=== PATIENT | male | born 1985 | race Caucasian/White ===

== ENCOUNTER 2024-01-03 14:29 | Inpatient (IN) | payer BC, SELFPAY ==
[2024-01-03 14:30] VITALS: BP 171/100; PULSE 85; RESP 18; TEMP 35.8; O2SAT 98
[2024-01-03 14:32] VITALS: BMI 32.3
--- NOTE | 2024-01-03 15:04 | CT_ITS ---
We are attempting to reach an attending provider to discuss findings. An addendum with communication details will be sent when the communication is complete. STUDY: CT Abdomen And Pelvis W/ Contrast Injection 01/03/2024 3:56 PM REASON FOR EXAM: Male, 38 years old. ABDOMINAL PAIN abd pain TECHNIQUE: Transaxial images were obtained without oral contrast, and IV 100mL Isovue-370 intravenous contrast. Individualized dose optimization techniques were used for this CT. COMPARISON: None FINDINGS: The visualized lung bases are unremarkable. The visualized portions of the heart are within normal limits. Unremarkable liver. Unremarkable gallbladder and extrahepatic biliary system. Unremarkable spleen. Unremarkable pancreas. Unremarkable bilateral adrenal glands. No acute findings of the right kidney. No acute findings of the left kidney. Unremarkable visualized stomach. Unremarkable small intestine. There is diverticulosis, with thickening of the colon wall, and pericolonic inflammation changes consistent with acute diverticulitis of the descending colon and rectosigmoid colon. The appendix is visualized and appears unremarkable. Between the sigmoid colon and the rectum, there is an abscess measuring 19 mm. There are no acute findings of the abdominal aorta. Unremarkable inferior vena cava. Subcentimeter mesenteric lymph nodes. Urinary bladder wall has wall thickening. This can be related to a partially contractile state. However, a cystitis is not excluded. Urinalysis should be performed in an effort to exclude cystitis. There are prostatic calcifications. There is an umbilical hernia containing fat. There are diffuse degenerative changes of the visualized lumbar spine. CT/Abdomen/Pelvis W IV Cont ONLY IMPRESSION: (NOT LISTED IN ORDER OF SIGNIFICANCE) Cystitis. Mild acute diverticulitis of the descending colon and rectosigmoid colon. Between the sigmoid colon and the rectum, there is an abscess measuring 19 mm. Umbilical hernia containing fat. Other findings as above. Electronically Signed: Cliff Alicea MD at 15:59 EDT ,
--- NOTE | 2024-01-03 15:04 | ED.VIS.GI ---
HPI HPI - GI History of Present Illness Chief Complaint: Abd Pain Informant: patient and spouse/S.O. Abdominal Pain/Flank Pain Onset: Today and Hours Context: Gradual Onset Timing: Continuous Quality: Aching and Cramping Location: Diffuse Current Severity: Moderate Maximum Severity: Moderate Worsened by: Nothing Relieved by: Nothing Nausea/Vomiting/Emesis GI Symptom: Positive for Nausea and Vomiting Onset: Today Severity: Mild Diarrhea/Melena/Hematochezia GI Symptom: Positive for Diarrhea and - (Small blood mixed with stool.); Negative for Melena Onset: Today Stool Quality: Positive for Loose Severity: Mild Associated Symptoms Associated Symptoms: Negative for Dysuria, Frequency, Hematuria or Urgency Narrative Narrative: 38-year-old male history diverticulitis and prior abdominal hernia repair no other abdominal surgeries. He has had several episodes of diverticulitis this summer. Diagnosed and treated at [facility] and was admitted for about 8 days. Did not require surgery. Recently just finished a dose of Cipro and Flagyl about a week ago. Complaining of diffuse abdominal pain with nausea, vomiting and diarrhea today. No dysuria. Prior similar symptoms: Yes Recent Illness/Hospitalization: No PFSH PFSH Home Medications ?Medication ?Instructions ?Recorded ?Last Taken ?Type albuterol sulfate 90 mcg/actuation 2 inh inhalation Q8H 01/03/24 Unknown History aerosol inhaler montelukast 10 mg tablet 10 mg PO DAILY 01/03/24 Unknown History omeprazole 20 mg capsule,delayed 20 mg PO DAILY 01/03/24 Unknown History release Allergy/AdvReac Type Severity Reaction Status Date / Time amoxicillin (From Augmentin) Allergy Intermediate Hives Verified 01/03/24 14:33 clavulanic acid (From Allergy Intermediate Hives Verified 01/03/24 14:33 Augmentin) Social History Smoking Status: Former smoker ROS ROS ED ROS Narrative Abdominal pain with nausea, vomiting and diarrhea. Constitutional Constitutional ED: Reports fever(s); Denies chills ENT ENT ED: Denies ear pain Cardiovascular Cardiovascular: Denies chest pain Respiratory/Chest Respiratory/Chest: Denies cough or dyspnea Gastrointestinal Gastrointestinal: Reports abdominal pain, diarrhea, nausea and vomiting; Denies constipation or melena Genitourinary Genitourinary ED: Denies dysuria or hematuria Musculoskeletal Musculoskeletal: Denies arthralgias or back pain Integumentary Denies abscess or Abrasions Neurologic Neurologic: Denies headache(s) Psychiatric Psychiatric: Denies anxiety or depression Endocrine Endocrinology: Denies polydipsia or polyphagia Hematologic/Lymphatic Hematologic/Lymphatic: Denies easy bleeding or easy bruising Allergic/Immunologic Allergic/Immunologic ED: Denies mouth swelling, tongue swelling or urticaria EXAM Physical Exam Narrative Exam Narrative: There is 8-year-old male sitting upright in bed. Vital signs stable afebrile. H EENT exam mildly dry mucous membranes. Otherwise unremarkable. Neck nontender. Lungs clear. Heart regular rate and rhythm rate about 85 no murmur. Chest wall ribs nontender. Abdomen soft diffusely tender. No distention. No hernia or mass. No obstruction. No peritoneal signs. Soft. Moving all 4 extremities. Nontender no edema he is awake and alert. No focal motor deficits. Const Vital Signs: 01/03/24 14:30 Temperature 96.5 F L Temperature Source Temporal Pulse Rate 85 Respiratory Rate 18 Blood Pressure 171/100 H Blood Pressure Mean 123 Pulse Ox 98 Positive well nourished and well developed; Negative for cachectic, contractures or unkempt General Appearance ED: well developed and NAD; Negative for unkempt, cachectic, contractures or pallor Nutritional Appearance: Negative for cachectic HEENT Reports dry mucous membranes; Denies moist mucous membranes normocephalic and atraumatic; Negative for trauma or tenderness Mouth ED: Yes dry mucous membranes Mouth: dry mucous membranes Eyes PERRL and EOMs intact bilaterally Neck no lymphadenopathy, supple and no JVD Resp normal respiratory effort and clear to auscultation bilaterally Cardio regular rate, regular rhythm, S1 normal heart sound, S2 normal heart sound and no murmurs GI non-distended and no masses; Negative for non-tender Inspection: Negative for abdominal distention Auscultation: normoactive bowel sounds Palpation: soft and tender; Negative for guarding, hernia, mass or rebound tenderness present Back/Spine no CVA tenderness Extremity full ROM General Extremety ED: Negative for edema or tenderness General Extremity: Negative for edema Neuro CN's II-XII intact bilaterally and moves all extremities Sensorium / Orientation: oriented to person, oriented to place and oriented to time; Negative for orientation impaired or confused Motor Exam: strength 5/5 throughout; Negative for general weakness or strength abnormal Psych mental status grossly normal and thought process normal Appearance: Negative for unkempt Attitude: No agitated Mood & Affect: Negative for depressed, anxious or tearful Skin no wounds General Skin Exam: Negative for jaundice or pallor Lesions: no lesions Rashes: no rashes Trauma: Negative for abrasion Nails: Negative for discolored MDM MDM MDM Narrative Medical decision making narrative: 38-year-old male with abdominal pain with nausea, vomiting and diarrhea. May be a viral syndrome. He has had a history of diverticulitis. CAT scan and labs are pending. Treated with morphine for pain Zofran for nausea and IV fluids for dehydration. Repeat exam patient is doing well at 4:17 PM. We discussed his test results. I also spoke to the general surgeon on-call and the radiologist to read his CT. General surgery is okay with admission here with IV antibiotics. And follow-up imaging to see if this resolves. Currently we do not think this will be a area that will need to be either drained or surgically resected unless it does not respond to IV antibiotic therapy. Hospitalist is on page. History & Record Review Discussion w/independent historian: Patient and Family Additional record(s) reviewed:: No prior records Lab Data Attestation: I reviewed the patient's lab results. Lab results narrative: CBC shows no elevated white count of 16.5. H&H 15 and 46. Platelets 337. Electrolytes show gap 8. Normal BUN and creatinine of 10 and 1. Glucose 144. Liver enzymes normal. Lipase normal at 30. CT of the abdomen shows descending colon and rectosigmoid diverticulitis with a small abscess. 18 mm. I discussed this with radiologist. Labs: Laboratory Results - last 24 hr 01/03/24 15:00 WBC 16.5 H RBC 5.09 Hgb 15.6 Hct 46.1 MCV 90.6 MCH 30.6 MCHC 33.8 RDW Std Deviation 46.3 H RDW Coeff of Francis 13.9 Plt Count 337 MPV 9.9 Immature Gran % (Auto) 0.300 Neut % (Auto) 85.0 H Lymph % (Auto) 6.4 L [place] % (Auto) 7.5 Eos % (Auto) 0.4 Baso % (Auto) 0.4 Absolute Neuts (auto) 14.0 H Absolute Lymphs (auto) 1.05 Nucleated RBC % 0 Sodium 140 Potassium 3.7 Chloride 110 H Carbon Dioxide 22.0 Anion Gap 8 BUN 10 Creatinine 1.02 Est GFR (MDRD) Af Amer 105 Est GFR (MDRD) Non-Af 87 BUN/Creatinine Ratio 9.8 L Glucose 144 H Calcium 9.6 Total Bilirubin 1.40 H AST 23 ALT 31 Alkaline Phosphatase 65 Total Protein 7.3 Albumin 3.7 Globulin 3.6 Albumin/Globulin Ratio 1.0 Lipase 30 Radiography Diagnostic Testing: Clinical Impression(s) from Imaging Studies Abdomen/Pelvis CT 01/03/24 15:04 IMPRESSION: (NOT LISTED IN ORDER OF SIGNIFICANCE) Cystitis. Mild acute diverticulitis of the descending colon and rectosigmoid colon. Between the sigmoid colon and the rectum, there is an abscess measuring 19 mm. Umbilical hernia containing fat. Other findings as above. Electronically Signed: Cliff Alicea MD at 15:59 EDT , ADDENDUM: 01/03/24 1609 IMPRESSION: (NOT LISTED IN ORDER OF SIGNIFICANCE) Cystitis. Mild acute diverticulitis of the descending colon and rectosigmoid colon. Between the sigmoid colon and the rectum, there is an abscess measuring 19 mm. Umbilical hernia containing fat. Other findings as above. N.B. : The above Results were Read Back by Cliff Alicea MD to Fili Guthrie MD, and understanding confirmed on 01/03/2024 16:02:31 (ET). Electronically Signed: Cliff Alicea MD at 15:59 EDT , Discharge Plan Triage Chief Complaint: Abd Pain ED Provider: Fili Guthrie Dx/Rx/DC Orders Clinical Impression: Diverticulitis, Intestinal diverticular abscess Prescriptions: No Action omeprazole 20 mg capsule,delayed release(DR/EC) 20 mg PO DAILY montelukast 10 mg tablet 10 mg PO DAILY albuterol sulfate 90 mcg/actuation HFA aerosol inhaler 2 inh inhalation Q8H Primary Care Provider: Shukri Contreras Referrals: [facility] Doctor,Out of [Non-Staff] - Print Language: [place] Disposition Disposition: Acute Care Hospital [facility]
[2024-01-03] MEDS: 0.9% Normal Saline (1000mL) 1,000 ML 999 ML IV (15:10)
[2024-01-03] MEDS: morphine 8 MG/ML Syringe IV (15:11)
[2024-01-03] MEDS: Ondansetron 4 MG/2 ML Vial IV ×2 (15:11→16:34)
[2024-01-03 15:12] LABS: Absolute Lymphocyte Count 1.05 X10^3/uL (0.83-4.51); Basophil# 0.06 X10^3/uL; Basophil% 0.4 % (0-1); Eosinophil# 0.06 X10^3/uL; Eosinophils% 0.4 % (0-5); Hematocrit 46.1 % (40-54); Hemoglobin 15.6 g/dL (13.0-16.5); Lymphocyte # 1.05 X10^3/ul (0.83-4.51); Lymphocyte % 6.4 % (19-41); Mean Corp Hgb Conc 33.8 g/dL (32-36); Mean Corpuscular Hgb 30.6 pg (27.0-32.0); Mean Corpuscular Volume 90.6 fL (80-94); Mean Platelet Vol. 9.9 fl (6.2-12.0); Monocyte# 1.24 X10^3/uL; Monocyte% 7.5 % (0-10); NRBC Flagged by Analyzer 0 % (0-5); Platelet Count 337 K/mm3 (150-450); RBC Distribution Width CV 13.9 % (11.6-14.6); RBC Distribution Width SD 46.3 fl (35.1-43.9); Red Blood Count 5.09 M/mm3 (4.6-6.2); White Blood Count 16.5 K/mm3 (4.4-11.0)
[2024-01-03 15:27] LABS: AST(SGOT) 23 U/L (15-37); Alanine Aminotransfer ALT/SGPT 31 U/L (16-61); Albumin, Serum 3.7 g/dL (3.2-5.0); Alkaline Phosphatase 65 U/L (45-117); Anion Gap 8 (5-15); BUN 10 mg/dL (7-18); BUN/Creat Ratio 9.8 RATIO (10-20); Calcium,Total 9.6 mg/dL (8.5-10.1); Chloride 110 mmol/L (98-107); Creatinine, Serum 1.02 mg/dL (0.70-1.30); EST Glomerular Filtration Rate 87 mL/min (>60); Est Glom Filt Rate - Afr Amer 105 mL/min (>60); Globulin 3.6 g/dL (2.2-4.2); Glucose 144 mg/dL (74-106); Lipase 30 U/L (13-75); Potassium 3.7 mmol/L (3.5-5.1); Protein, Total 7.3 g/dL (6.4-8.2); Sodium Level 140 mmol/L (136-145)
--- NOTE | 2024-01-03 16:20 | ED.RN ---
Attempted to do medication list with patient. pt. states I am so tired of answering this question do none of you talk to each other and update it in the system, I have answered this about 20 times. When this RN asked to confirm pt. omeprazole dose he states I have no idea what dosage I take I get it in the mail and I just take it.
--- NOTE | 2024-01-03 16:25 | HP.PCM.HOS_ITS ---
HPI - General General Date of Admission: 01/03/24 Date of Service: 01/03/24 HPI Narrative REID JAIN, is a 38 M with a PMH as outlined who presents via the ED On 01/03/2024 with a complaint of abdominal pain. He was diagnosed with diverticulitis for the first time in September 2023 and admitted at [facility]. He was says he was told then that he had a small abscess as well but that it would respond to treatment. He was discharged from NSAIDs about 8 days ago he subsequently had another flareup of the diverticulitis and went to an urgent care. He was given a prescription for p.o. ciprofloxacin and metronidazole and he completed the course just about 2 days prior to this admission. This pain however recurred and intensified. He had associated nausea and vomiting and diarrhea so he decided to come into the ED today. He denied any fever or chills shortness of breath or any other symptoms. Review of systems otherwise negative. Vitals in the ED with blood pressure of 171/100, pulse rate of 85, respiratory rate of 18 and temperature of 96.5 Fahrenheit. He was saturating 98% on room air. CBC showed hemoglobin of 15.6, WBC of 16.5 and platelets of 337. Chemistry showed sodium of 140 with potassium of 3.7 and bicarb of 22. Creatinine was 1.02. Liver enzymes are within normal limits. CT abdomen and pelvis showed mild diverticulitis of the descending and rectosigmoid colon and between the sigmoid colon and the rectum, there was an abscess measuring 19 mm. He has been admitted to be managed for acute diverticulitis with diverticular abscess. General surgery will also be consulted. [facility] Home Medications ?Medication ?Instructions ?Recorded ?Last Taken ?Type albuterol sulfate 90 mcg/actuation 2 inh inhalation Q8H 01/03/24 Unknown History aerosol inhaler montelukast 10 mg tablet 10 mg PO DAILY 01/03/24 Unknown History omeprazole 20 mg capsule,delayed 20 mg PO DAILY 01/03/24 Unknown History release Allergy/AdvReac Type Severity Reaction Status Date / Time amoxicillin (From Augmentin) Allergy Intermediate Hives Verified 01/03/24 14:33 clavulanic acid (From Allergy Intermediate Hives Verified 01/03/24 14:33 Augmentin) Social History Smoking Status: Former smoker ROS Review of Systems ROS Unobtainable: Denies due to encephalopathy Constitutional Constitutional: Reports fatigue, malaise and weakness; Denies anorexia, chills or fever(s) Eyes Eyes: Denies change in vision ENT HEENT: Denies dysphagia, headache(s) or sore throat Cardiovascular Cardiovascular: Denies chest pain, dyspnea on exertion, edema, lightheadedness, orthopnea, rapid heart rate or syncope Respiratory/Chest Respiratory/Chest: Denies cough, dyspnea, productive cough, shortness of breath at rest or shortness of breath with exertion Gastrointestinal Gastrointestinal: Reports abdominal pain, diarrhea, nausea and vomiting; Denies constipation, dyspepsia, hematemesis, hematochezia, loose stools or melena Genitourinary Genitourinary: Denies burning urination, difficulty urinating or dysuria Musculoskeletal Musculoskeletal: Denies back pain Neurologic Neurologic: Denies confusion, dizziness, focal weakness, headache(s), numbness, paresthesias, seizure-like activity, seizures or syncope Psychiatric Psychiatric: Denies anxiety or depression Endocrine Endocrinology: Denies change in body appearance Hematologic/Lymphatic Hematologic/Lymphatic: Denies anemia Vital Signs Vital Signs Vital Signs: 01/03/24 14:30 Temperature 96.5 F L Temperature Source Temporal Pulse Rate 85 Respiratory Rate 18 Blood Pressure 171/100 H Blood Pressure Mean 123 Pulse Ox 98 Physical Exam Const alert and oriented x3 Constitutional Narrative: in moderate distress due to abdominal pain General Appearance: cooperative HEENT normocephalic, head/scalp atraumatic and hearing grossly normal bilaterally HEENT Narrative: dry oral mucosa Mouth: oral and palatal mucosa normal Eyes PERRL, EOMs intact bilaterally and conjunctivae normal Neck no lymphadenopathy, supple and no JVD Resp normal respiratory effort, no retractions, no use of accessory muscles and clear to auscultation bilaterally Cardio regular rate, regular rhythm, S1 normal heart sound, S2 normal heart sound and no murmurs GI GI Narrative: mild generalised tenderness, no guarding or rebound tenderness. Extremity normal to inspection, full ROM and no clubbing, cyanosis or edema Neuro oriented x3, CN's II-XII intact bilaterally, moves all extremities and no focal motor deficits Sensorium / Orientation: awake and alert Motor Exam: strength 5/5 throughout Psych affect normal Results Lab / Micro Data 01/03/24 15:00 01/03/24 15:00 Labs: Laboratory Results - last 24 hr 01/03/24 15:00: WBC 16.5 H, RBC 5.09, Hgb 15.6, Hct 46.1, MCV 90.6, MCH 30.6, MCHC 33.8, RDW Std Deviation 46.3 H, RDW Coeff of Francis 13.9, Plt Count 337, MPV 9.9, Immature Gran % (Auto) 0.300, Neut % (Auto) 85.0 H, Lymph % (Auto) 6.4 L, [place] % (Auto) 7.5, Eos % (Auto) 0.4, Baso % (Auto) 0.4, Absolute Neuts (auto) 14.0 H, Absolute Lymphs (auto) 1.05, Nucleated RBC % 0, Sodium 140, Potassium 3.7, Chloride 110 H, Carbon Dioxide 22.0, Anion Gap 8, BUN 10, Creatinine 1.02, Est GFR (MDRD) Af Amer 105, Est GFR (MDRD) Non-Af 87, BUN/Creatinine Ratio 9.8 L , Glucose 144 H, Calcium 9.6, Total Bilirubin 1.40 H, AST 23, ALT 31, Alkaline Phosphatase 65, Total Protein 7.3, Albumin 3.7, Globulin 3.6, Albumin/Globulin Ratio 1.0, Lipase 30 Imaging Radiology Impression Abdomen/Pelvis CT 01/03/24 15:04 IMPRESSION: (NOT LISTED IN ORDER OF SIGNIFICANCE) Cystitis. Mild acute diverticulitis of the descending colon and rectosigmoid colon. Between the sigmoid colon and the rectum, there is an abscess measuring 19 mm. Umbilical hernia containing fat. Other findings as above. Electronically Signed: Cliff Alicea MD at 15:59 EDT , ADDENDUM: 01/03/24 8000 IMPRESSION: (NOT LISTED IN ORDER OF SIGNIFICANCE) Cystitis. Mild acute diverticulitis of the descending colon and rectosigmoid colon. Between the sigmoid colon and the rectum, there is an abscess measuring 19 mm. Umbilical hernia containing fat. Other findings as above. N.B. : The above Results were Read Back by Clfif Alicea MD to Fili Guthrie MD, and understanding confirmed on 01/03/2024 16:02:31 (ET). Electronically Signed: Cliff Alicea MD at 15:59 EDT , Assessment & Plan Assessment/Plan (1) Intestinal diverticular abscess: (2) Diverticulitis: PLAN: Plan #Acute diverticulitis with diverticular abscess * has a history of recurrent diverticulitis, with multiple admissions at [facility] for diverticulitis. Most recent admission was just about a week ago and he just completed a course of p.o. ciprofloxacin and metronidazole. * Comes in again with abdominal pain and CT of the abdomen and pelvis showed mild acute diverticulitis of the descending and rectosigmoid colon and between the sigmoid colon and the rectum there is an abscess measuring 19 mm. * Admit to MedSurg. Keep NPO. * Start IV Zosyn. Consult general surgery for evaluation. If the abscess is not responding to the antibiotics, he may need the abscess drained by IR or general surgery. * Hydrated with IV fluid normal saline at 150 cc/h * P.o. Tylenol, p.o. oxycodone and IV morphine as needed for pain * #Elevated blood pressure: * Systolic blood pressure in the 170s. * Not a known hypertensive. * This may be exacerbated by the pain from the diverticulitis. IV hydralazine as needed. * Blood pressure remains elevated consider starting oral BP meds. * #Chronic alcohol use disorder * Patient states he takes about 10 drinks a week. He states he used to take about 10 drinks a day but has tried to cut down. He states he gets drunk on average twice a week. He denies ever going through withdrawal symptoms. * Will place on alcohol withdrawal protocol with Ativan as a precaution. * ativan prn. * #Nicotine dependence: says he now vapes, doesnt smoke cigarettes anymore. Counseled to quit. DVT prophylaxis: Lovenox Charges/Coding Visit Charges Inpatient E&M: 24143 Init Hosp L3
[2024-01-03 16:30] VITALS: BP 160/80; PULSE 45; RESP 16; O2SAT 94
[2024-01-03] MEDS: morphine 8 MG/ML Syringe 6 MG IV (16:34)
[2024-01-03] MEDS: Piperacil/Tazobactam 4.5 GM in 0.9% Normal Saline (100mL MB+) 100 ML IV (16:35)
[2024-01-03 16:37] VITALS: BP 160/90; PULSE 45; RESP 16; TEMP 36.7; O2SAT 100
[2024-01-03 17:04] VITALS: BMI 32.4
[2024-01-03] MEDS: 0.9% Normal Saline (1000mL) 1,000 ML 150 ML IV (17:35)
[2024-01-03 18:00] VITALS: BP 138/85; PULSE 91; RESP 18; TEMP 36.7; O2SAT 99
[2024-01-03] MEDS: Morphine 2 MG/ML Syringe IV (20:34)
[2024-01-03] MEDS: proCHLORPERazine 10 MG/2 ML Vial IV (20:46)
[2024-01-03 20:58] VITALS: BP 137/90; PULSE 62; RESP 18; TEMP 36.9; O2SAT 96
[2024-01-03] MEDS: Pantoprazole Sodium 40 MG in 0.9% Normal Saline (100mL MB+) 100 ML 330 MG IV (21:09)
[2024-01-04 02:30] VITALS: BP 144/86; PULSE 58; RESP 18; TEMP 36.6; O2SAT 97
[2024-01-04] MEDS: Morphine 4 MG/ML Syringe IV ×3 (03:12→19:39)
[2024-01-04] MEDS: 0.9% Normal Saline (1000mL) 1,000 ML 150 ML IV (03:12)
[2024-01-04 06:07] LABS: Absolute Lymphocyte Count 2.18 X10^3/uL (0.83-4.51); Absolute Neutrophil Count 7.6 X10^3/uL (2.0-7.7); Basophil# 0.05 X10^3/uL; Basophil% 0.5 % (0-1); Eosinophil# 0.17 X10^3/uL; Eosinophils% 1.6 % (0-5); Hematocrit 41.4 % (40-54); Hemoglobin 13.5 g/dL (13.0-16.5); Lymphocyte # 2.18 X10^3/ul (0.83-4.51); Lymphocyte % 20.2 % (19-41); Mean Corp Hgb Conc 32.6 g/dL (32-36); Mean Corpuscular Hgb 30.5 pg (27.0-32.0); Mean Corpuscular Volume 93.5 fL (80-94); Mean Platelet Vol. 11.1 fl (6.2-12.0); Monocyte# 0.81 X10^3/uL; Monocyte% 7.5 % (0-10); NRBC Flagged by Analyzer 0 % (0-5); Neutrophil # 7.57 X10^3/uL (2.7-7.7); Neutrophil % 69.9 % (47-70); Platelet Count 205 K/mm3 (150-450); RBC Distribution Width CV 14.3 % (11.6-14.6); RBC Distribution Width SD 49.6 fl (35.1-43.9); Red Blood Count 4.43 M/mm3 (4.6-6.2); White Blood Count 10.8 K/mm3 (4.4-11.0)
[2024-01-04] MEDS: Ondansetron 4 MG/2 ML Vial IV ×2 (06:09→14:33)
[2024-01-04] MEDS: Morphine 2 MG/ML Syringe IV (06:09)
[2024-01-04 07:01] LABS: AST(SGOT) 16 U/L (15-37); Alanine Aminotransfer ALT/SGPT 24 U/L (16-61); Albumin, Serum 2.9 g/dL (3.2-5.0); Alkaline Phosphatase 51 U/L (45-117); Anion Gap 6 (5-15); BUN 7 mg/dL (7-18); BUN/Creat Ratio 7.7 RATIO (10-20); Calcium,Total 8.8 mg/dL (8.5-10.1); Chloride 108 mmol/L (98-107); Creatinine, Serum 0.92 mg/dL (0.70-1.30); EST Glomerular Filtration Rate 99 mL/min (>60); Est Glom Filt Rate - Afr Amer 120 mL/min (>60); Estimated Creatinine Clearance 135.84 ml/min; Glucose 104 mg/dL (74-106); Potassium 3.7 mmol/L (3.5-5.1); Protein, Total 5.9 g/dL (6.4-8.2); Sodium Level 140 mmol/L (136-145)
--- NOTE | 2024-01-04 07:50 | EX.PCM.CON.S ---
Assessment & Plan Assessment/Plan (1) Intestinal diverticular abscess: (2) Diverticulitis: PLAN: Plan I have been consulted in conjunction with Dr. Fuller. He has independently evaluated this patient. Patient with recurrent symptoms of acute diverticulitis. Patient had a 2 week time period where all symptoms had resolved. Plan to treat with conservative measures i.e. IV antibiotics, IV fluids and bowel rest. Patient may increase to clear liquids, however will hold diet at clears until patient's pain has resolved. May obtain repeat CT scan of the ab/pel with contrast in 3 days to evaluate status of diverticulitis. Patient is aware that if conservative measures fail or if symptoms increase, Dr. Fuller will proceed with surgical intervention. This may entail creating a temporary colostomy. Patient has had the opportunity to ask and have questions answered. Patient would prefer a more conservative approach with an elective surgical procedure at a later date. Patient verbally understands and agrees with the proposed plan. Thank you for allowing us to participate in this patient's care. HPI Consult Data Date of Consult: 01/04/24 HPI Narrative Reason for Consultation: Acute diverticulitis with abscess HPI Narrative: REID JAIN, is a 38 M who presents with a 1 day history of left lower/mid pelvic pain. Patient notes he was hospitalized at [facility] in [place] at the end of September and was discharged on October 28 for acute ruptured diverticulitis with abscess. Patient states he was given IV antibiotics and was treated with a conservative approach during that hospitalization. Patient states he was told to avoid stress and any foods that aggravate his symptoms. He states approximately 2-3 weeks ago he felt similar symptoms starting again. He presented to an outside urgent care where he was paced on oral antibiotics for an acute diverticulitis flare up. Patient states he just completed the antibiotic therapy on Thursday. Patient states yesterday he woke up with what he thought was food poisoning. He noted nausea, vomiting and abdominal pain. Patient states these are the symptoms that brought him to the ED. Patient notes previous left inguinal hernia repair with mesh. He denies any other previous abdominal surgeries. He denies any cardiac history. He is not on any blood thinners. He notes an intentional weight loss of [address] scan of ab/pel demonstrated mild diverticulitis of the descending and rectosigmoid colon. There is a 19 mm abscess between the sigmoid colon and rectum. Admitting WBC was 16.5. PFSH Home Medications ?Medication ?Instructions ?Recorded ?Last Taken ?Type albuterol sulfate 90 mcg/actuation 2 inh inhalation Q8H 01/03/24 Unknown History aerosol inhaler montelukast 10 mg tablet 10 mg PO DAILY 01/03/24 Unknown History omeprazole 20 mg capsule,delayed 20 mg PO DAILY 01/03/24 Unknown History release Allergy/AdvReac Type Severity Reaction Status Date / Time amoxicillin (From Augmentin) Allergy Intermediate Hives Verified 01/03/24 14:33 clavulanic acid (From Allergy Intermediate Hives Verified 01/03/24 14:33 Augmentin) Social History Smoking Status: Former smoker ROS Constitutional Constitutional: Reports systems reviewed and no addt'l complaints, except as documented Eyes Eyes: Reports systems reviewed and no addt'l complaints, except as documented ENT HEENT: Reports systems reviewed and no addt'l complaints, except as documented Cardiovascular Cardiovascular: Reports systems reviewed and no addt'l complaints, except as documented Respiratory/Chest Respiratory/Chest: Reports systems reviewed and no addt'l complaints, except as documented Gastrointestinal Gastrointestinal: Reports systems reviewed and no addt'l complaints, except as documented Genitourinary Genitourinary: Reports systems reviewed and no addt'l complaints, except as documented Musculoskeletal Musculoskeletal: Reports systems reviewed and no addt'l complaints, except as documented Integumentary Integumentary: Reports systems reviewed and no addt'l complaints, except as documented Neurologic Neurologic: Reports systems reviewed and no addt'l complaints, except as documented Psychiatric Psychiatric: Reports systems reviewed and no addt'l complaints, except as documented Endocrine Endocrinology: Reports systems reviewed and no addt'l complaints, except as documented Hematologic/Lymphatic Hematologic/Lymphatic: Reports systems reviewed and no addt'l complaints, except as documented Allergic/Immunologic Allergic/Immunologic: Reports systems reviewed and no addt'l complaints, except as documented Physical Exam Const alert, oriented x3 and no apparent distress HEENT normocephalic and head/scalp atraumatic Eyes PERRL Neck full ROM Lymph Lymphatic: no lymphadenopathy noted Resp normal respiratory effort and clear to auscultation bilaterally Cardio regular rate and regular rhythm GI GI Narrative: Abdomen- tenderness to palpation in the left lower quadrant and pelvic region. Hypoactive bowel sounds no CVA tenderness Back/Spine no CVA tenderness Extremity normal to inspection and no calf tenderness Skin no rashes or lesions noted Neuro no focal motor deficits and no sensory deficits noted Psych mental status grossly normal, thought process normal and cooperative Lab / Micro Data 01/04/24 05:22 01/04/24 05:22 Labs: Laboratory Results - last 24 hr 01/03/24 15:00: WBC 16.5 H, RBC 5.09, Hgb 15.6, Hct 46.1, MCV 90.6, MCH 30.6, MCHC 33.8, RDW Std Deviation 46.3 H, RDW Coeff of Francis 13.9, Plt Count 337, MPV 9.9, Immature Gran % (Auto) 0.300, Neut % (Auto) 85.0 H, Lymph % (Auto) 6.4 L, [place] % (Auto) 7.5, Eos % (Auto) 0.4, Baso % (Auto) 0.4, Absolute Neuts (auto) 14.0 H, Absolute Lymphs (auto) 1.05, Nucleated RBC % 0, Sodium 140, Potassium 3.7, Chloride 110 H, Carbon Dioxide 22.0, Anion Gap 8, BUN 10, Creatinine 1.02, Est GFR (MDRD) Af Amer 105, Est GFR (MDRD) Non-Af 87, BUN/Creatinine Ratio 9.8 L, Glucose 144 H, Calcium 9.6, Total Bilirubin 1.40 H, AST 23, ALT 31, Alkaline Phosphatase 65, Total Protein 7.3, Albumin 3.7, Globulin 3.6, Albumin/Globulin Ratio 1.0, Lipase 30 01/04/24 05:22: WBC 10.8, RBC 4.43 L, Hgb 13.5, Hct 41.4, MCV 93.5, MCH 30.5, MCHC 32.6, RDW Std Deviation 49.6 H, RDW Coeff of Francis 14.3, Plt Count 205, MPV 11.1, Immature Gran % (Auto) 0.300, Neut % (Auto) 69.9, Lymph % (Auto) 20.2, [place] % (Auto) 7.5, Eos % (Auto) 1.6, Baso % (Auto) 0.5, Absolute Neuts (auto) 7.6, Absolute Lymphs (auto) 2.18, Nucleated RBC % 0, Sodium 140, Potassium 3.7, Chloride 108 H, Carbon Dioxide 26.0, Anion Gap 6, BUN 7, Creatinine 0.92, Estim Creat Clear Calc 135.84, Est GFR (MDRD) Af Amer 120, Est GFR (MDRD) Non-Af 99, BUN/Creatinine Ratio 7.7 L, Glucose 104, Calcium 8.8, Total Bilirubin 1.20 H, AST 16, ALT 24, Alkaline Phosphatase 51, Total Protein 5.9 L, Albumin 2.9 L, Globulin 3.0, Albumin/Globulin Ratio 1.0 Imaging Radiology Impression Abdomen/Pelvis CT 01/03/24 15:04 IMPRESSION: (NOT LISTED IN ORDER OF SIGNIFICANCE) Cystitis. Mild acute diverticulitis of the descending colon and rectosigmoid colon. Between the sigmoid colon and the rectum, there is an abscess measuring 19 mm. Umbilical hernia containing fat. Other findings as above. Electronically Signed: Cliff Alicea MD at 15:59 EDT , ADDENDUM: 01/03/24 1609 IMPRESSION: (NOT LISTED IN ORDER OF SIGNIFICANCE) Cystitis. Mild acute diverticulitis of the descending colon and rectosigmoid colon. Between the sigmoid colon and the rectum, there is an abscess measuring 19 mm. Umbilical hernia containing fat. Other findings as above. N.B. : The above Results were Read Back by Cliff Alicea MD to Fili Guthrie MD, and understanding confirmed on 01/03/2024 16:02:31 (ET). Electronically Signed: Cliff Alicea MD at 15:59 EDT , Charges/Coding Visit Charges Inpatient E&M: 77402 Init Hosp L2
[2024-01-04 07:55] VITALS: BP 143/95; PULSE 57; RESP 18; TEMP 37.2; O2SAT 97
--- NOTE | 2024-01-04 08:04 | PN.HOSP_ITS ---
Reason for Visit Reason for Visit: Diagnoses Diverticulitis of intestine, part unspecified, without perforation or abscess without bleeding (01/03/24) Abscess of intestine (01/03/24) Subjective Subjective Still with abdominal pain, but improved from admission. Objective Data Objective Data Vital Signs: Vital Signs Temp Pulse Resp BP Pulse Ox O2 Del Method 37.2 C 57 L 18 143/95 H 97 Room Air 01/04/24 07:55 01/04/24 07:55 01/04/24 07:55 01/04/24 07:55 01/04/24 07:55 01/04/24 07:55 Oxygen Delivery Method Room Air Weight: 105.448 kg Body Mass Index (BMI) 32.4 Intake & Output: Intake and Output for Last 24 Hours 01/02/24 01/03/24 01/04/24 23:59 23:59 23:59 Intake Total 1210 / 1210 1000 / 1000 Balance 1210 / 1210 1000 / 1000 Lab / Micro Data 01/04/24 05:22 01/04/24 05:22 Labs: Laboratory Results - last 24 hr 01/03/24 15:00: WBC 16.5 H, RBC 5.09, Hgb 15.6, Hct 46.1, MCV 90.6, MCH 30.6, MCHC 33.8, RDW Std Deviation 46.3 H, RDW Coeff of Francis 13.9, Plt Count 337, MPV 9.9, Immature Gran % (Auto) 0.300, Neut % (Auto) 85.0 H, Lymph % (Auto) 6.4 L, [place] % (Auto) 7.5, Eos % (Auto) 0.4, Baso % (Auto) 0.4, Absolute Neuts (auto) 14.0 H, Absolute Lymphs (auto) 1.05, Nucleated RBC % 0, Sodium 140, Potassium 3.7, Chloride 110 H, Carbon Dioxide 22.0, Anion Gap 8, BUN 10, Creatinine 1.02, Est GFR (MDRD) Af Amer 105, Est GFR (MDRD) Non-Af 87, BUN/Creatinine Ratio 9.8 L , Glucose 144 H, Calcium 9.6, Total Bilirubin 1.40 H, AST 23, ALT 31, Alkaline Phosphatase 65, Total Protein 7.3, Albumin 3.7, Globulin 3.6, Albumin/Globulin Ratio 1.0, Lipase 30 09/09/24 05:22: WBC 10.8, RBC 4.43 L, Hgb 13.5, Hct 41.4, MCV 93.5, MCH 30.5, MCHC 32.6, RDW Std Deviation 49.6 H, RDW Coeff of Francis 14.3, Plt Count 205, MPV 11.1, Immature Gran % (Auto) 0.300, Neut % (Auto) 69.9, Lymph % (Auto) 20.2, [place] % (Auto) 7.5, Eos % (Auto) 1.6, Baso % (Auto) 0.5, Absolute Neuts (auto) 7.6, Absolute Lymphs (auto) 2.18, Nucleated RBC % 0, Sodium 140, Potassium 3.7, Chloride 108 H, Carbon Dioxide 26.0, Anion Gap 6, BUN 7, Creatinine 0.92, Estim Creat Clear Calc 135.84, Est GFR (MDRD) Af Amer 120, Est GFR (MDRD) Non-Af 99, B UN/Creatinine Ratio 7.7 L, Glucose 104, Calcium 8.8, Total Bilirubin 1.20 H, AST 16, ALT 24, Alkaline Phosphatase 51, Total Protein 5.9 L, Albumin 2.9 L, Globulin 3.0, Albumin/Globulin Ratio 1.0 Radiography Diagnostic Testing: Radiology Impression Abdomen/Pelvis CT 01/03/24 15:04 IMPRESSION: (NOT LISTED IN ORDER OF SIGNIFICANCE) Cystitis. Mild acute diverticulitis of the descending colon and rectosigmoid colon. Between the sigmoid colon and the rectum, there is an abscess measuring 19 mm. Umbilical hernia containing fat. Other findings as above. Electronically Signed: Cliff Alicea MD at 15:59 EDT Reading Location ID and State: [facility] / [place] , Service support , ADDENDUM: 01/03/24 7573 IMPRESSION: (NOT LISTED IN ORDER OF SIGNIFICANCE) Cystitis. Mild acute diverticulitis of the descending colon and rectosigmoid colon. Between the sigmoid colon and the rectum, there is an abscess measuring 19 mm. Umbilical hernia containing fat. Other findings as above. N.B. : The above Results were Read Back by Cliff Alicea MD to Fili Guthrie MD, and understanding confirmed on 01/03/2024 16:02:31 (ET). Electronically Signed: Cliff Alicea MD at 15:59 EDT , Physical Exam Const alert and no apparent distress HEENT head/scalp atraumatic and moist oral mucous membranes Resp normal respiratory effort, no retractions, no use of accessory muscles and clear to auscultation bilaterally Cardio regular rhythm, S1 normal heart sound and S2 normal heart sound GI GI Narrative: LLQ abdominal pain with rebound. Extremity normal to inspection and full ROM Neuro Sensorium / Orientation: awake Assessment & Plan Assessment/Plan (1) Intestinal diverticular abscess: (2) Diverticulitis: PLAN: Plan Acute diverticulitis with diverticular abscess * 1.9cm abscess. * abx with meropenem (received piperacillin/tazobactam in the emergency room but not ordered on the floor on admission). Patient has a noted allergy to amoxicillin where she develops hives. * general surgery consult. Planning on repeat CT in a few days. Patient may eventually require surgical intervention with a surgical procedure at a later date. * Clear liquid diet Chronic alcohol use disorder * Patient states he takes about 10 drinks a week. He states he used to take about 10 drinks a day but has tried to cut down. He states he gets drunk on average twice a week. He denies ever going through withdrawal symptoms. * Start MVI with no evidence of any alcohol withdrawal at this time. VTE prophylaxis: enoxaparin Charges/Coding Visit Charges Inpatient E&M: 26836 Subs Hosp L2
[2024-01-04 09:34] VITALS: O2SAT 97
[2024-01-04] MEDS: Pantoprazole Sodium 40 MG in 0.9% Normal Saline (100mL MB+) 100 ML 330 MG IV ×2 (10:33→22:05)
[2024-01-04] MEDS: oxyCODONE 5 MG Tablet PO ×2 (10:34→22:11)
[2024-01-04] MEDS: proCHLORPERazine 10 MG/2 ML Vial IV ×2 (11:29→19:47)
--- NOTE | 2024-01-04 12:56 | CASEMGMT ---
MARIAH SMITH Assessment Face to Face with patient for initial transition planning/care coordination assessment. MARIAH SMITH introduced self and role at [facility], pt voices understanding. Pt is A&Ox4 and is resting comfortably in bed and is calm. Care providers, pharmacy, and demographics verified. Admitting dx: Diverticulitis LACE Strata: 1 PCP: Shukri Contreras Specialists: Denies Preferred Pharmacy: [facility] Insurance: [employer] Prescription Benefit:Yes LNOK: Reba Ulloa (M) Living Arrangements: Pt lives alone in a mobile home with 2 steps to enter ADLs/IADLs: Ind Transportation: Self. Pt mother [place] drive pt home at [place] DME: Denies all DME uses or needs HHC/SNF: Denies Hx or needs Pt?s goal: Home Plan: Home no needs. 6-Click is 24. Denies the need for HHC, OP Tx, or SNF. Pt states that he feels safe discharging home once medically ready and denies further questions or concerns. Lalo Chang RN, CM
[2024-01-04] MEDS: Meropenem 1 GM in 0.9% Normal Saline (100mL MB+) 100 ML IV ×2 (14:34→22:54)
[2024-01-04 16:22] VITALS: BP 124/70; PULSE 70; RESP 18; TEMP 37.1; O2SAT 98
[2024-01-04] MEDS: 0.9% Saline Lock 10 ML Syringe IV ×2 (19:39→22:06)
[2024-01-04 19:58] VITALS: BP 153/103; PULSE 63; RESP 16; TEMP 36.6; O2SAT 97
[2024-01-04] MEDS: Acetaminophen 325 MG Tablet 650 MG PO (22:11)
[2024-01-05] MEDS: oxyCODONE 5 MG Tablet PO (03:02)
[2024-01-05 03:08] VITALS: BP 139/85; PULSE 54; RESP 16; TEMP 36.6; O2SAT 98
[2024-01-05] MEDS: Acetaminophen 325 MG Tablet 650 MG PO (05:11)
[2024-01-05] MEDS: Meropenem 1 GM in 0.9% Normal Saline (100mL MB+) 100 ML IV ×3 (05:11→22:35)
[2024-01-05 06:53] LABS: Absolute Lymphocyte Count 1.61 X10^3/uL (0.83-4.51); Absolute Neutrophil Count 6.6 X10^3/uL (2.0-7.7); Basophil# 0.06 X10^3/uL; Basophil% 0.7 % (0-1); Eosinophil# 0.17 X10^3/uL; Eosinophils% 1.9 % (0-5); Hematocrit 42.7 % (40-54); Hemoglobin 14.1 g/dL (13.0-16.5); Lymphocyte # 1.61 X10^3/ul (0.83-4.51); Lymphocyte % 17.7 % (19-41); Mean Corpuscular Hgb 30.7 pg (27.0-32.0); Mean Platelet Vol. 9.8 fl (6.2-12.0); Monocyte# 0.69 X10^3/uL; Monocyte% 7.6 % (0-10); NRBC Flagged by Analyzer 0 % (0-5); Neutrophil # 6.56 X10^3/uL (2.7-7.7); Neutrophil % 71.8 % (47-70); Platelet Count 283 K/mm3 (150-450); RBC Distribution Width SD 47.8 fl (35.1-43.9); Red Blood Count 4.59 M/mm3 (4.6-6.2); White Blood Count 9.1 K/mm3 (4.4-11.0)
[2024-01-05 06:55] VITALS: O2SAT 95
[2024-01-05 07:17] LABS: Anion Gap 6 (5-15); BUN 6 mg/dL (7-18); BUN/Creat Ratio 6.6 RATIO (10-20); Chloride 106 mmol/L (98-107); Creatinine, Serum 0.91 mg/dL (0.70-1.30); EST Glomerular Filtration Rate 100 mL/min (>60); Est Glom Filt Rate - Afr Amer 121 mL/min (>60); Estimated Creatinine Clearance 137.36 ml/min; Glucose 91 mg/dL (74-106); Potassium 3.9 mmol/L (3.5-5.1); Sodium Level 139 mmol/L (136-145)
--- NOTE | 2024-01-05 07:34 | PCM.PN.SRG ---
Subjective Subjective Patient evaluated in conjunction with Dr. Fuller. Patient notes feeling improved this morning. He continues to note pain with palpation of his abdomen, however voices that pain is less than yesterday. He is tolerating clears without pain, nausea or vomiting. Objective Data Objective Data Vital Signs: Vital Signs Temp Pulse Resp BP Pulse Ox O2 Del Method 97.9 F 54 L 16 139/85 H 98 Room Air 01/05/24 03:08 01/05/24 03:08 01/05/24 03:08 01/05/24 03:08 01/05/24 03:08 01/05/24 03:08 Oxygen Delivery Method Room Air Weight: 232 lb 9.403 oz Body Mass Index (BMI) 32.4 Intake & Output: Intake and Output for Last 24 Hours 01/03/24 01/04/24 01/05/24 23:59 23:59 23:59 Intake Total 1210 / 1210 3740 / 3740 120 / 120 Balance 1210 / 1210 3740 / 3740 120 / 120 Lab / Micro Data 01/05/24 06:10 01/05/24 06:10 Labs: Laboratory Results - last 24 hr 01/05/24 06:10: WBC 9.1, RBC 4.59 L, Hgb 14.1, Hct 42.7, MCV 93.0, MCH 30.7, MCHC 33.0, RDW Std Deviation 47.8 H, RDW Coeff of Francis 14.0, Plt Count 283, MPV 9.8, Immature Gran % (Auto) 0.300, Neut % (Auto) 71.8 H, Lymph % (Auto) 17.7 L, [place] % (Auto) 7.6, Eos % (Auto) 1.9, Baso % (Auto) 0.7, Absolute Neuts (auto) 6.6, Absolute Lymphs (auto) 1.61, Nucleated RBC % 0, Sodium 139, Potassium 3.9, Chloride 106, Carbon Dioxide 27.0, Anion Gap 6, BUN 6 L, Creatinine 0.91, Estim Creat Clear Calc 137.36, Est GFR (MDRD) Af Amer 121, Est GFR (MDRD) Non-Af 100, BUN/Creatinine Ratio 6.6 L, Glucose 91, Calcium 9.0 Physical Exam GI GI Narrative: Abdomen- soft, tenderness to palpation of the LLQ and pelvic region. Assessment & Plan Assessment/Plan (1) Intestinal diverticular abscess: (2) Diverticulitis: PLAN: Plan I am following this patient in conjunction with Dr. Fuller. He has independently evaluated this patient. Labs reviewed. WBC is within normal range Plan to continue IV Zosyn Hold at clear liquids until pain is resolved Encourage ambulation Plan to obtain repeat CT scan of the ab/pel with contrast on Obtain CBC and BMP for tomorrow morning We will continue to monitor this patient Charges/Coding Visit Charges Inpatient E&M: 52422 Subs Hosp L1
--- NOTE | 2024-01-05 07:48 | PN.HOSP_ITS ---
Reason for Visit Reason for Visit: Diagnoses Diverticulitis of intestine, part unspecified, without perforation or abscess without bleeding (01/03/24) Abscess of intestine (01/03/24) Subjective Subjective Still with abdominal pain, but slightly improved. Objective Data Objective Data Vital Signs: Vital Signs Temp Pulse Resp BP Pulse Ox O2 Del Method 36.6 C 54 L 16 139/85 H 98 Room Air 01/05/24 03:08 01/05/24 03:08 01/05/24 03:08 01/05/24 03:08 01/05/24 03:08 01/05/24 03:08 Oxygen Delivery Method Room Air Weight: 105.5 kg Body Mass Index (BMI) 32.4 Intake & Output: Intake and Output for Last 24 Hours 01/03/24 01/04/24 01/05/24 23:59 23:59 23:59 Intake Total 1210 / 1210 3740 / 3740 120 / 120 Balance 1210 / 1210 3740 / 3740 120 / 120 Lab / Micro Data 01/05/24 06:10 01/05/24 06:10 Labs: Laboratory Results - last 24 hr 01/05/24 06:10: WBC 9.1, RBC 4.59 L, Hgb 14.1, Hct 42.7, MCV 93.0, MCH 30.7, MCHC 33.0, RDW Std Deviation 47.8 H, RDW Coeff of Francis 14.0, Plt Count 283, MPV 9.8, Immature Gran % (Auto) 0.300, Neut % (Auto) 71.8 H, Lymph % (Auto) 17.7 L, [place] % (Auto) 7.6, Eos % (Auto) 1.9, Baso % (Auto) 0.7, Absolute Neuts (auto) 6.6, Absolute Lymphs (auto) 1.61, Nucleated RBC % 0, Sodium 139, Potassium 3.9, Chloride 106, Carbon Dioxide 27.0, Anion Gap 6, BUN 6 L, Creatinine 0.91, Estim Creat Clear Calc 137.36, Est GFR (MDRD) Af Amer 121, Est GFR (MDRD) Non-Af 100, BUN/Creatinine Ratio 6.6 L, Glucose 91, Calcium 9.0 Physical Exam Const alert and no apparent distress HEENT head/scalp atraumatic and moist oral mucous membranes Resp normal respiratory effort, no retractions, no use of accessory muscles and clear to auscultation bilaterally Cardio regular rate, regular rhythm, S1 normal heart sound and S2 normal heart sound GI normal to inspection, nondistended, normoactive bowel sounds and soft to palpation GI Narrative: TTP in LLQ with rebound. Assessment & Plan Assessment/Plan (1) Intestinal diverticular abscess: (2) Diverticulitis: PLAN: Plan Acute diverticulitis with diverticular abscess * 1.9cm abscess. * abx with meropenem (received piperacillin/tazobactam in the emergency room but not ordered on the floor on admission). Patient has a noted allergy to amoxicillin where she develops hives. * general surgery consult. Planning on repeat CT on . Patient may eventually require surgical intervention with a surgical procedure at a later date. * Clear liquid diet Chronic alcohol use disorder * Patient states he takes about 10 drinks a week. He states he used to take about 10 drinks a day but has tried to cut down. He states he gets drunk on average twice a week. He denies ever going through withdrawal symptoms. * No evidence of any alcohol withdrawal at this time. * Continue MVI VTE prophylaxis: enoxaparin Charges/Coding Visit Charges Inpatient E&M: 59900 Subs Hosp L2
[2024-01-05] MEDS: Morphine 4 MG/ML Syringe IV (08:42)
[2024-01-05] MEDS: Ondansetron 4 MG/2 ML Vial IV (08:43)
[2024-01-05] MEDS: 0.9% Saline Lock 10 ML Syringe IV ×2 (08:43→21:41)
[2024-01-05] MEDS: Multivitamins,Therapeutic Tablet 1 TABLET PO (08:47)
[2024-01-05 08:51] VITALS: BP 159/93; PULSE 57; RESP 18; TEMP 36.6; O2SAT 98
[2024-01-05] MEDS: Pantoprazole Sodium 40 MG in 0.9% Normal Saline (100mL MB+) 100 ML 330 MG IV ×2 (10:11→21:42)
[2024-01-05 15:36] VITALS: BP 142/91; PULSE 70; RESP 18; TEMP 37.2; O2SAT 98
[2024-01-05 21:51] VITALS: BP 129/88; PULSE 69; RESP 18; TEMP 36.6; O2SAT 98
[2024-01-06 02:58] VITALS: BP 140/82; PULSE 67; RESP 18; TEMP 36.6; O2SAT 98
[2024-01-06] MEDS: 0.9% Saline Lock 10 ML Syringe IV ×6 (06:02→22:22)
[2024-01-06] MEDS: Meropenem 1 GM in 0.9% Normal Saline (100mL MB+) 100 ML IV ×3 (06:03→22:58)
[2024-01-06 06:57] LABS: Absolute Lymphocyte Count 1.97 X10^3/uL (0.83-4.51); Absolute Neutrophil Count 5.3 X10^3/uL (2.0-7.7); Basophil# 0.09 X10^3/uL; Basophil% 1.1 % (0-1); Eosinophil# 0.22 X10^3/uL; Eosinophils% 2.6 % (0-5); Hematocrit 43.2 % (40-54); Hemoglobin 14.5 g/dL (13.0-16.5); Lymphocyte # 1.97 X10^3/ul (0.83-4.51); Lymphocyte % 23.5 % (19-41); Mean Corp Hgb Conc 33.6 g/dL (32-36); Mean Corpuscular Hgb 30.7 pg (27.0-32.0); Mean Corpuscular Volume 91.5 fL (80-94); Mean Platelet Vol. 9.6 fl (6.2-12.0); Monocyte# 0.75 X10^3/uL; Monocyte% 8.9 % (0-10); NRBC Flagged by Analyzer 0 % (0-5); Neutrophil # 5.32 X10^3/uL (2.7-7.7); Neutrophil % 63.5 % (47-70); Platelet Count 287 K/mm3 (150-450); RBC Distribution Width CV 13.3 % (11.6-14.6); RBC Distribution Width SD 45.8 fl (35.1-43.9); Red Blood Count 4.72 M/mm3 (4.6-6.2); White Blood Count 8.4 K/mm3 (4.4-11.0)
--- NOTE | 2024-01-06 07:46 | PN.SURG_ITS ---
Subjective Subjective Patient is a 38 y/o M I am following for acute diverticulitis with perforation and abscess. Patient is progressing very well. He is currently tolerating a full liquid diet. He denies any abdominal pain. He denies any nausea, vomiting, fever. Objective Data Objective Data Vital Signs: Vital Signs Temp Pulse Resp BP Pulse Ox O2 Del Method 97.8 F 67 18 140/82 H 98 Room Air 01/06/24 02:58 01/06/24 02:58 01/06/24 02:58 01/06/24 02:58 01/06/24 02:58 01/06/24 02:58 Oxygen Delivery Method Room Air Weight: 232 lb 9.403 oz Body Mass Index (BMI) 32.4 Intake & Output: Intake and Output for Last 24 Hours 01/04/24 01/05/24 01/06/24 23:59 23:59 23:59 Intake Total 3740 / 3740 2130 / 2130 120 / 120 Balance 3740 / 3740 2130 / 2130 120 / 120 Lab / Micro Data 01/06/24 06:08 01/05/24 06:10 Labs: Laboratory Results - last 24 hr 01/06/24 06:08: WBC 8.4, RBC 4.72, Hgb 14.5, Hct 43.2, MCV 91.5, MCH 30.7, MCHC 33.6, RDW Std Deviation 45.8 H, RDW Coeff of Francis 13.3, Plt Count 287, MPV 9.6, Immature Gran % (Auto) 0.400, Neut % (Auto) 63.5, Lymph % (Auto) 23.5, [place] % (Auto) 8.9, Eos % (Auto) 2.6, Baso % (Auto) 1.1 H, Absolute Neuts (auto) 5.3, Absolute Lymphs (auto) 1.97, Nucleated RBC % 0 Physical Exam Const alert, oriented x3 and no apparent distress GI GI Narrative: Abdomen- soft, non-distended, non-tender to palpation. Hypoactive bowel sounds. Assessment & Plan Assessment/Plan (1) Intestinal diverticular abscess: (2) Diverticulitis: PLAN: Plan I am following this patient in conjunction with Dr. Calvo in Dr. Fuller's absence. Labs reviewed Continue IV antibiotics and fluids Plan for CT scan of ab/pel tomorrow morning Continue ambulation We will continue to monitor this patient Charges/Coding Visit Charges Inpatient E&M: 14359 Subs Hosp L1
[2024-01-06 08:10] VITALS: BP 140/93; PULSE 64; RESP 14; TEMP 36.6; O2SAT 99
[2024-01-06] MEDS: Multivitamins,Therapeutic Tablet 1 TABLET PO (08:21)
[2024-01-06 08:30] LABS: Anion Gap 6 (5-15); BUN 6 mg/dL (7-18); BUN/Creat Ratio 7.9 RATIO (10-20); Calcium,Total 9.2 mg/dL (8.5-10.1); Chloride 108 mmol/L (98-107); Creatinine, Serum 0.76 mg/dL (0.70-1.30); EST Glomerular Filtration Rate 122 mL/min (>60); Est Glom Filt Rate - Afr Amer 147 mL/min (>60); Estimated Creatinine Clearance 164.48 ml/min; Glucose 101 mg/dL (74-106); Potassium 3.8 mmol/L (3.5-5.1); Sodium Level 138 mmol/L (136-145)
--- NOTE | 2024-01-06 08:30 | PN.HOSP_ITS ---
Reason for Visit Reason for Visit: Diagnoses Diverticulitis of intestine, part unspecified, without perforation or abscess without bleeding (01/03/24) Abscess of intestine (01/03/24) Subjective Subjective Abdomen feeling better. Tolerating full liquids. Objective Data Objective Data Vital Signs: Vital Signs Temp Pulse Resp BP Pulse Ox O2 Del Method 36.6 C 64 14 140/93 H 99 Room Air 01/06/24 08:10 01/06/24 08:10 01/06/24 08:10 01/06/24 08:10 01/06/24 08:10 01/06/24 08:15 Oxygen Delivery Method Room Air Weight: 105.5 kg Body Mass Index (BMI) 32.4 Intake & Output: Intake and Output for Last 24 Hours 01/04/24 01/05/24 01/06/24 23:59 23:59 23:59 Intake Total 3740 / 3740 2130 / 2130 120 / 120 Balance 3740 / 3740 2130 / 2130 120 / 120 Lab / Micro Data 01/06/24 06:08 01/06/24 06:08 Labs: Laboratory Results - last 24 hr 01/06/24 06:08: WBC 8.4, RBC 4.72, Hgb 14.5, Hct 43.2, MCV 91.5, MCH 30.7, MCHC 33.6, RDW Std Deviation 45.8 H, RDW Coeff of Francis 13.3, Plt Count 287, MPV 9.6, Immature Gran % (Auto) 0.400, Neut % (Auto) 63.5, Lymph % (Auto) 23.5, [place] % (Auto) 8.9, Eos % (Auto) 2.6, Baso % (Auto) 1.1 H, Absolute Neuts (auto) 5.3, Absolute Lymphs (auto) 1.97, Nucleated RBC % 0, Sodium 138, Potassium 3.8, C hloride 108 H, Carbon Dioxide 24.0, Anion Gap 6, BUN 6 L, Creatinine 0.76, Estim Creat Clear Calc 164.48, Est GFR (MDRD) Af Amer 147, Est GFR (MDRD) Non-Af 122, BUN/Creatinine Ratio 7.9 L, Glucose 101, Calcium 9.2 Physical Exam Const alert and no apparent distress HEENT head/scalp atraumatic and moist oral mucous membranes Resp normal respiratory effort and no retractions GI normal to inspection, nondistended, normoactive bowel sounds, soft to palpation, non-tender and non-distended GI Narrative: No rebound. Assessment & Plan Assessment/Plan (1) Intestinal diverticular abscess: (2) Diverticulitis: PLAN: Plan Acute diverticulitis with diverticular abscess * 1.9cm abscess. * abx with meropenem (received piperacillin/tazobactam in the emergency room but not ordered on the floor on admission). Patient has a noted allergy to amoxicillin where she develops hives. * general surgery consult. Planning on repeat CT on . Patient may eventually require surgical intervention with a surgical procedure at a later date. * Clear liquid diet Chronic alcohol use disorder * Patient states he takes about 10 drinks a week. He states he used to take about 10 drinks a day but has tried to cut down. He states he gets drunk on average twice a week. He denies ever going through withdrawal symptoms. * No evidence of any alcohol withdrawal at this time. * Continue MVI VTE prophylaxis: enoxaparin Charges/Coding Visit Charges Inpatient E&M: 27414 Subs Hosp L2
[2024-01-06] MEDS: Pantoprazole Sodium 40 MG in 0.9% Normal Saline (100mL MB+) 100 ML 330 MG IV ×2 (10:08→22:22)
[2024-01-06 10:10] VITALS: O2SAT 98
[2024-01-06 16:15] VITALS: BP 133/89; PULSE 77; RESP 14; TEMP 36.7; O2SAT 97
[2024-01-06 20:47] VITALS: BP 128/85; PULSE 71; RESP 16; TEMP 37; O2SAT 98
[2024-01-07 02:54] VITALS: BP 125/85; PULSE 60; RESP 16; TEMP 36.5; O2SAT 97
[2024-01-07] MEDS: Meropenem 1 GM in 0.9% Normal Saline (100mL MB+) 100 ML IV (06:41)
--- NOTE | 2024-01-07 07:00 | CT_ITS ---
STUDY: CT ABDOMEN AND PELVIS WITH CONTRAST REASON FOR EXAM: Male, 38 years old. Acute diverticulitis with perforation and abscess RADIATION DOSAGE (If Supplied By Facility): CTDIvol = ( 18.41 ) mGy, DLP = ( 1290.47 ) mGycm TECHNIQUE: Transaxial images were obtained from the dome of the diaphragm to the symphysis pubis with oral contrast. Oral and amp; IV Gastrografin and amp; 100mL Isovue-370 was administered. Sagittal and coronal images were reconstructed. Individualized dose optimization techniques were used for this CT. COMPARISON: Comparison is made with prior study dated January 03, 2024. FINDINGS: The visualized lung bases are unremarkable. The visualized portions of the heart are within normal limits. Normal liver. Normal gallbladder and extrahepatic biliary system. Normal spleen. Normal pancreas. Normal bilateral adrenal glands. Normal right kidney. Normal left kidney. Normal visualized stomach. Normal small intestine. Diffuse sigmoid diverticulosis with thickening of the sigmoid colon. Mild residual inflammatory changes are seen in the sigmoid colon and rectum. There has been improvement as compared to prior study. Interval resolution of the tiny fluid collection between the sigmoid colon and rectum. The appendix is visualized and appears normal. Normal abdominal aorta. Normal inferior vena cava. Normal retroperitoneum. Normal urinary bladder. Normal abdominal wall. Normal osseous structures. CT/Abdomen/Pelvis WITH Contrast IMPRESSION: Persistent inflammatory changes in the rectosigmoid colon as described although there has been improvement. Electronically Signed: Rocco Hernandez MD at 8:18 EDT ,
[2024-01-07 07:24] LABS: Absolute Lymphocyte Count 1.68 X10^3/uL (0.83-4.51); Absolute Neutrophil Count 6.6 X10^3/uL (2.0-7.7); Basophil# 0.07 X10^3/uL; Basophil% 0.7 % (0-1); Eosinophil# 0.23 X10^3/uL; Eosinophils% 2.5 % (0-5); Hematocrit 44.9 % (40-54); Hemoglobin 15.1 g/dL (13.0-16.5); Lymphocyte # 1.68 X10^3/ul (0.83-4.51); Mean Corp Hgb Conc 33.6 g/dL (32-36); Mean Corpuscular Hgb 30.6 pg (27.0-32.0); Mean Corpuscular Volume 91.1 fL (80-94); Monocyte# 0.73 X10^3/uL; Monocyte% 7.8 % (0-10); NRBC Flagged by Analyzer 0 % (0-5); Neutrophil % 70.6 % (47-70); Platelet Count 299 K/mm3 (150-450); RBC Distribution Width CV 13.5 % (11.6-14.6); RBC Distribution Width SD 45.6 fl (35.1-43.9); Red Blood Count 4.93 M/mm3 (4.6-6.2); White Blood Count 9.4 K/mm3 (4.4-11.0)
--- NOTE | 2024-01-07 07:44 | PN.HOSP_ITS ---
Reason for Visit Reason for Visit: Diagnoses Diverticulitis of intestine, part unspecified, without perforation or abscess without bleeding (01/03/24) Abscess of intestine (01/03/24) Subjective Subjective Feeling better. No abdominal pain. Tolerated transitional diet. Objective Data Objective Data Vital Signs: Vital Signs Temp Pulse Resp BP Pulse Ox O2 Del Method 36.5 C L 60 16 125/85 H 97 Room Air 01/07/24 02:54 01/07/24 02:54 01/07/24 02:54 01/07/24 02:54 01/07/24 02:54 01/07/24 02:54 Oxygen Delivery Method Room Air Weight: 105.5 kg Body Mass Index (BMI) 32.4 Intake & Output: Intake and Output for Last 24 Hours 01/05/24 01/06/24 01/07/24 23:59 23:59 23:59 Intake Total 2130 / 2130 580 / 580 120 / 120 Balance 2130 / 2130 580 / 580 120 / 120 Lab / Micro Data 01/07/24 06:08 01/07/24 06:08 Labs: Laboratory Results - last 24 hr 01/06/24 06:08: Sodium 138, Potassium 3.8, Chloride 108 H, Carbon Dioxide 24.0, Anion Gap 6, BUN 6 L, Creatinine 0.76, Estim Creat Clear Calc 164.48, Est GFR (MDRD) Af Amer 147, Est GFR (MDRD) Non-Af 122, BUN/Creatinine Ratio 7.9 L, Glucose 101, Calcium 9.2 01/07/24 06:08: WBC 9.4, RBC 4.93, Hgb 15.1, Hct 44.9, MCV 91.1, MCH 30.6, MCHC 33.6, RDW Std Deviation 45.6 H, RDW Coeff of Francis 13.5, Plt Count 299, MPV 10.0, Immature Gran % (Auto) 0.400, Neut % (Auto) 70.6 H, Lymph % (Auto) 18.0 L, Bell % (Auto) 7.8, Eos % (Auto) 2.5, Baso % (Auto) 0.7, Absolute Neuts (auto) 6.6, Absolute Lymphs (auto) 1.68, Nucleated RBC % 0 Physical Exam Const alert and no apparent distress HEENT head/scalp atraumatic and moist oral mucous membranes GI normal to inspection, nondistended, normoactive bowel sounds, non-tender and non-distended Assessment & Plan Assessment/Plan (1) Intestinal diverticular abscess: (2) Diverticulitis: PLAN: Plan Acute diverticulitis with diverticular abscess * 1.9cm abscess. Subsequent CT showed resolution of the abscess. * abx with meropenem (received piperacillin/tazobactam in the emergency room but not ordered on the floor on admission). Patient has a noted allergy to amoxicillin where she develops hives. * general surgery consult. Planning on repeat CT on . Patient may eventually require surgical intervention with a surgical procedure at a later date. * Will discharge with levofloxacin and Flagyl to complete a 10-day course of antibiotics. Patient will follow-up with general surgery. Chronic alcohol use disorder * Patient states he takes about 10 drinks a week. He states he used to take about 10 drinks a day but has tried to cut down. He states he gets drunk on average twice a week. He denies ever going through withdrawal symptoms. * No evidence of any alcohol withdrawal at this time. * Continue MVI VTE prophylaxis: enoxaparin FMLA forms filled out
[2024-01-07 07:51] LABS: Anion Gap 6 (5-15); BUN 6 mg/dL (7-18); BUN/Creat Ratio 7.6 RATIO (10-20); Calcium,Total 9.5 mg/dL (8.5-10.1); Chloride 106 mmol/L (98-107); Creatinine, Serum 0.79 mg/dL (0.70-1.30); EST Glomerular Filtration Rate 118 mL/min (>60); Est Glom Filt Rate - Afr Amer 142 mL/min (>60); Estimated Creatinine Clearance 158.23 ml/min; Glucose 99 mg/dL (74-106); Potassium 3.7 mmol/L (3.5-5.1); Sodium Level 138 mmol/L (136-145)
[2024-01-07 08:12] VITALS: BP 138/83; PULSE 66; RESP 18; TEMP 36.6; O2SAT 99
[2024-01-07] MEDS: Multivitamins,Therapeutic Tablet 1 TABLET PO (08:15)
[2024-01-07 08:38] VITALS: O2SAT 98
--- NOTE | 2024-01-07 09:27 | PN.SURG_ITS ---
Subjective Subjective Patient is evaluated sitting comfortably in the chair. He notes some nausea following drinking of contrast for CT. He also notes some diarrhea as well. He denies nausea, vomiting with full liquid diet. He denies abdominal pain. Objective Data Objective Data Vital Signs: Vital Signs Temp Pulse Resp BP Pulse Ox O2 Del Method 97.9 F 66 18 138/83 H 98 Room Air 01/07/24 08:12 01/07/24 08:12 01/07/24 08:12 01/07/24 08:12 01/07/24 08:38 01/07/24 08:38 Oxygen Delivery Method Room Air Weight: 232 lb 9.403 oz Body Mass Index (BMI) 32.4 Intake & Output: Intake and Output for Last 24 Hours 01/05/24 01/06/24 01/07/24 23:59 23:59 23:59 Intake Total 2130 / 2130 580 / 580 120 / 120 Balance 2130 / 2130 580 / 580 120 / 120 Lab / Micro Data 01/07/24 06:08 01/07/24 06:08 Labs: Laboratory Results - last 24 hr 01/07/24 06:08: WBC 9.4, RBC 4.93, Hgb 15.1, Hct 44.9, MCV 91.1, MCH 30.6, MCHC 33.6, RDW Std Deviation 45.6 H, RDW Coeff of Francis 13.5, Plt Count 299, MPV 10.0, Immature Gran % (Auto) 0.400, Neut % (Auto) 70.6 H, Lymph % (Auto) 18.0 L, Schley % (Auto) 7.8, Eos % (Auto) 2.5, Baso % (Auto) 0.7, Absolute Neuts (auto) 6.6, Absolute Lymphs (auto) 1.68, Nucleated RBC % 0, Sodium 138, Potassium 3.7, Chloride 106, Carbon Dioxide 26.0, Anion Gap 6, BUN 6 L, Creatinine 0.79, Estim Creat Clear Calc 158.23, Est GFR (MDRD) Af Amer 142, Est GFR (MDRD) Non-Af 118, BUN/Creatinine Ratio 7.6 L, Glucose 99, Calcium 9.5 Radiography Diagnostic Testing: Radiology Impression Abdomen/Pelvis CT 01/07/24 07:00 IMPRESSION: Persistent inflammatory changes in the rectosigmoid colon as described although there has been improvement. Electronically Signed: Rocco Hernandez MD at 8:18 EDT , Physical Exam GI GI Narrative: Abdomen- soft, nontender. Assessment & Plan Assessment/Plan (1) Intestinal diverticular abscess: (2) Diverticulitis: PLAN: Plan I am following this patient in conjunction with Dr. Fuller. He will independently evaluated this patient. Plan for CT scan this morning. If abscess is decreased or resolved: will plan for low fiber diet, and discharge to home on continued antibiotic treatment with outpatient follow-up If CT scan demonstrates no change in abscess or increase in size, then will discuss colectomy with the patient during this admission Keep NPO until Dr. Fuller discusses CT scan with the patient We will continue to monitor this patient Discharge as early as today pending CT and diet status Charges/Coding Visit Charges Inpatient E&M: 15892 Subs Hosp L1
[2024-01-07] MEDS: Pantoprazole Sodium 40 MG in 0.9% Normal Saline (100mL MB+) 100 ML 330 MG IV (10:33)
--- NOTE | 2024-01-07 10:38 | PCM.DC.SUM ---
Providers Date of Admission: 01/03/24 Primary Care Physician: Dr. Shukri Contreras MD Consultations 01/03/24 20:14 Consult: General Surgery Routine Consulting Provider: Alejo Fuller Reason for Consult: acute diverticulitis with diverticular abscess EMERGENT Consult: No MD Notified: Yes Date Notified: 01/03/24 Time Notified: 20:14 Method of Notification: Text Reason For Visit: ACUTE DIVERTICULITIS WITH DIVERTICULITIS ABSCESS Diagnosis Discharge Diagnosis (1) Intestinal diverticular abscess: Status: Acute Code(s): K63.0 - Abscess of intestine (2) Diverticulitis: Status: Acute Code(s): K57.92 - Diverticulitis of intestine, part unspecified, without perforation or abscess without bleeding Plan Acute diverticulitis with diverticular abscess 1.9cm abscess. Subsequent CT showed resolution of the abscess. abx with meropenem (received piperacillin/tazobactam in the emergency room but not ordered on the floor on admission). Patient has a noted allergy to amoxicillin where she develops hives. general surgery consult. Planning on repeat CT on . Patient may eventually require surgical intervention with a surgical procedure at a later date. Will discharge with levofloxacin and Flagyl to complete a 10-day course of antibiotics. Patient will follow-up with general surgery. Chronic alcohol use disorder Patient states he takes about 10 drinks a week. He states he used to take about 10 drinks a day but has tried to cut down. He states he gets drunk on average twice a week. He denies ever going through withdrawal symptoms. No evidence of any alcohol withdrawal at this time. Continue MVI VTE prophylaxis: enoxaparin FMLA forms filled out Medications at Discharge Home Medications albuterol sulfate 90 mcg/actuation aerosol inhaler 2 inh inhalation Q8H 01/03/24 montelukast 10 mg tablet 10 mg PO DAILY 01/03/24 omeprazole 20 mg capsule,delayed release 20 mg PO DAILY 01/03/24 Hospital Course Operations None Procedures None Summary of Care Provided Minutes Spent on Discharge: 32 Weight / BMI Weight Weight: 105.5 kg Body Mass Index (BMI) 32.4 ABG / Lab / Microbiology Data 01/07/24 06:08 01/07/24 06:08 Laboratory: Laboratory Results - last 24 hr 01/07/24 06:08: WBC 9.4, RBC 4.93, Hgb 15.1, Hct 44.9, MCV 91.1, MCH 30.6, MCHC 33.6, RDW Std Deviation 45.6 H, RDW Coeff of Francis 13.5, Plt Count 299, MPV 10.0, Immature Gran % (Auto) 0.400, Neut % (Auto) 70.6 H, Lymph % (Auto) 18.0 L, [place] % (Auto) 7.8, Eos % (Auto) 2.5, Baso % (Auto) 0.7, Absolute Neuts (auto) 6.6, Absolute Lymphs (auto) 1.68, Nucleated RBC % 0, Sodium 138, Potassium 3.7, Chloride 106, Carbon Dioxide 26.0, Anion Gap 6, BUN 6 L, Creatinine 0.79, Estim Creat Clear Calc 158.23, Est GFR (MDRD) Af Amer 142, Est GFR (MDRD) Non-Af 118, BUN/Creatinine Ratio 7.6 L, Glucose 99, Calcium 9.5 Radiography Diagnostic Testing: Radiology Impression Abdomen/Pelvis CT 01/07/24 07:00 IMPRESSION: Persistent inflammatory changes in the rectosigmoid colon as described although there has been improvement. Electronically Signed: Rocco Hernandez MD at 8:18 EDT , D/C Instructions Discharge Diet: - (bland diet, advance slowly as possible. ) Meaningful Use Info Meaningful Use Meaningful Use Diagnoses (Choose all that apply): None applicable Ischemic Stroke Statin Dosing Therapy Reference: STATIN DOSE THERAPY REFERENCE: * Patients > 75 years receive moderate or high dose statin therapy. * Patients 75 years or YOUNGER should receive HIGH intensity statin dose unless contraindicated. You will be required to document reason for non-treatment if statin daily dose does not meet guidelines. HIGH DOSE STATIN THERAPY DAILY Atorvastatin > than or = to 40 mg Rosuvastatin > than or = to 20 mg Amlodipine + Atorvastatin > than or = to 2.5/40 mg Ezetimibe + Simvastatin 10/80 mg Simvastatin 80mg Discharge Plan Admission Admit Date/Time: 01/03/24 16:38 Primary Reason for Your Visit: diverticulitis Attending Provider: Will Baker Primary Care Provider: Shukri Contreras Consulting Providers: Alejo Fuller; Tara Schafer Discharge Orders/Prescriptions Prescriptions: No Action omeprazole 20 mg capsule,delayed release(DR/EC) 20 mg PO DAILY montelukast 10 mg tablet 10 mg PO DAILY albuterol sulfate 90 mcg/actuation HFA aerosol inhaler 2 inh inhalation Q8H Referrals / Follow Up: [facility] Doctor,Out of [Non-Staff] - Shukri Contreras MD [Primary Care Provider] - Charges/Coding Visit Charges Inpatient E&M: 83549 Disch Hosp >30min
--- NOTE | 2024-01-07 11:00 | PCM.DC ---
Discharge Instructions Diet Discharge Diet: - (bland diet, low fiber diet until follow-up) Activity Discharge Activity: No Restrictions Follow Up Care Please Follow Up With: Alejo Fuller MD When: Please contact our office at [phone], option #2 to schedule an appointment for 7-10 days after discharge. Test Results: Test results from this visit will be discussed in further detail at your follow-up appointment, if applicable. Discharge Plan Admission Admit Date/Time: 01/03/24 16:38 Primary Reason for Your Visit: diverticulitis Attending Provider: Will Baker Primary Care Provider: Shukri Contreras Consulting Providers: Alejo Fuller; Tara Schafer Instructions Additional Instructions / Restrictions: What are low-fiber foods? If your doctor tells you to follow a low-fiber diet, here are low-fiber foods you can eat and higher-fiber foods you should avoid. Remember to always choose foods that you would normally eat. Do not try any foods that caused you discomfort or allergic reactions in the past. If you are on a ?low-residue diet,? your food choices are even more restricted than those listed below. Talk with your cancer care team or dietitian if you have questions about certain foods or amounts. Meat, fish, poultry, and protein Eat: Tender cuts of meat Ground meat Tofu Fish and shellfish Smooth peanut butter Eggs Bake, broil, or poach meats, and use mild seasonings. Try preparing meats as stews, roasts, meatloaves, casseroles, sandwiches, and soups using ingredients on the approved lists. Scramble, poach, or boil eggs; or make omelets, souffl?s, custard, puddings, and casseroles, using ingredients noted below. You might want to ask your doctor, nurse, or dietitian about other foods may be OK for you to eat, and find out when you can go back to your normal diet. Avoid: All beans, nuts, peas, lentils, and legumes Processed meats, hot dogs, sausage, and cold cuts Tough meats with gristle Dairy: Milk and cheese Eat: Only in small to medium amounts and only if they don?t cause problems for you Milk, chocolate milk, buttermilk, and milk drinks Yogurt without seeds or granola Sour cream Cheese Cottage cheese Custard or pudding Ice cream or frozen desserts (without nuts) Cream sauces, soups, and casseroles You can use these items in desserts, snacks, or breads. Bread, cereals, and grains Eat: White breads, waffles, [place]tarian toast, plain white rolls, or white bread toast Pretzels Plain pasta or noodles White rice Crackers, zwieback, red, and matzoh (no cracked wheat or whole grains) Cereals without whole grains, added fiber, seeds, raisins, or other dried fruit Use white flour for baking and making sauces. Grains, such as white rice, Cream of Wheat, or grits, should be well-cooked. Include the above grains in casseroles, dumplings, souffl?s, cheese strata, kugels, and pudding. Avoid any food that contains: Brown or wild rice Whole grains, cracked grains, or whole wheat products Kasha (buckwheat) Cornbread or cornmeal Jalen crackers Bran Wheat germ Nuts Granola Coconut Dried fruit Seeds Vegetables and potatoes Eat: Tender, well-cooked fresh or canned vegetables without seeds, stems, or skins Cooked sweet or white potatoes without skins Strained vegetable juices without pulp or spices You can also eat these with cream sauces, or in soups, souffl?s, kugels, and casseroles. Avoid: All raw or steamed vegetables All types of beans Potatoes with skin Peas [place] Cabbage, broccoli, cauliflower, Head Waters sprouts, and greens Sauerkraut Onions Fruits and desserts Eat: Soft canned or cooked fruit without seeds or skins (small amounts) Small amounts of well-ripened banana Strained or clear juices Small amounts of soft cantaloupe or honeydew melon Cookies and other desserts without whole grains, dried fruit, berries, nuts, or coconut Sherbet and popsicles Serving suggestions include gelatins, milk shakes, frozen desserts, puddings, tapioca, cakes, and sauces. Avoid: All raw or dried fruits Berries Prune juice, prunes, and raisins Other foods Eat: Mayonnaise and mild salad dressings Margarine, butter, cream, and oils in small amounts Plain gravies Plain bouillon and broth Ketchup and mild mustard Spices, cooked herbs, and salt Sugar, honey, and syrup Clear jellies Hard candy and marshmallows Plain chocolate Avoid: Marmalade Pickles, olives, relish, and horseradish Popcorn Potato chips Liquids Keep in mind that low-fiber foods cause fewer bowel movements and smaller stools. You may need to drink extra fluids to help prevent constipation while you are on a low-fiber diet. Drink plenty of water unless your doctor tells you otherwise, and use juices and milk as noted above. Discharge Orders/Prescriptions Prescriptions: New cefdinir 300 mg capsule 300 mg PO BID 10 Days Qty: 20 0RF metronidazole 500 mg tablet 500 mg PO TID 10 Days Qty: 30 0RF Continued omeprazole 20 mg capsule,delayed release(DR/EC) 20 mg PO DAILY montelukast 10 mg tablet 10 mg PO DAILY albuterol sulfate 90 mcg/actuation HFA aerosol inhaler 2 inh inhalation Q8H Referrals / Follow Up: Shukri Contreras MD [Primary Care Provider] - [facility] Doctor,Out of [Non-Staff] - Alejo Fuller MD [Med Staff - Active Staff] - 01/18/24
--- NOTE | 2024-01-07 11:45 | CASEMGMT ---
MARIAH SMITH NOTE: Discharge order is in. MARIAH SMITH to room. Pt sitting up in chair in room. He requests info on foods he will be able to eat. Made aware this will be provided to him w/discharge instructions. He voices appreciation. He voices no concern w/going home. Fredy العليN MARIAH SMITH
[2024-01-07 11:50] VITALS: BP 130/88; PULSE 87; RESP 15; TEMP 36.7; O2SAT 99
== END 2024-01-07 13:11 | disposition home or self-care (01) | DRG 392 ==
LOC: ED 16:19 → MS3 16:39
PROVIDERS: Physician Assistant; Admitting Provider Student in an Organized Health Care Education/Training Program; Emergency Provider Emergency Medicine; PCP Family Medicine
DX: K57.80 Diverticulitis of intestine, part unspecified, with perforation and abscess without bleeding (principal); Z79.51 Long term (current) use of inhaled steroids; Z87.891 Personal history of nicotine dependence; Z79.899 Other long term (current) drug therapy
CPT/HCPCS: 36415; 74177; 80048; 80053; 83690; 85025; 99284; J2185; J7030; Q9967; A4216; J2405

== ENCOUNTER 2024-02-19 07:37 | Day surgery (SDC) | payer BC, SELFPAY ==
[2024-02-19] VITALS (8 sets, daily range): BP systolic 106–128; BP diastolic 61–73; PULSE 59–69; RESP 16–18; TEMP 36.1–36.8; O2SAT 96–98; BMI 31.6
--- OUTSIDE RECORDS SUMMARY | 2024-02-19 07:41 | XMS RPT_ITS | CCD ---
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 Name Role Phone Barbara Contreras Unavailable [phone] Unavailable Unavailable Unavailable Provider, None Unavailable Unavailable [facility] Unavailable Unavailable Charlie Salcido Unavailable Unavailable Charlie Salcido Unavailable Unavailable Barbara Contreras Unavailable [phone] Unavailable Unavailable Barbara Contreras MD Primary Care Provider Barbara Contreras Primary Care Unavailab le StencelBarbara Referring Unavailab le StencelBarbara Attending Unavailab le StencelBarbara Referring Unavailab le StencelBarbara Attending Unavailab le StencelBarbara Primary Care Unavailab le Barbara Contreras MD Primary Care Provider Barbara Contreras MD Primary Care Provider Barbara Contreras MD Unavailable TAY, JUNAID DEV T. Attending Unavailable BARBARA CONTRERAS Primary Care Unavailab le LEB, POLA B Referring Unavailable STENCELBARBARA Primary Care Unavailable LEB, POLA B Referring Unavailable STENCELBARBARA Primary Care Unavailable LEB, POLA B Referring Unavailable STENCELBARBARA Primary Care Unavailable LEB, POLA B Referring Unavailable LEB, POLA Lalo Attending Unavailable STENBARBARA LOMAS Primary Care Unavailab le TAY, JUNAID DEV T. Referring Unavailable THADDEUS WILSON Attending Unavailab joaquin WILSONTHADDEUS Consulting Unavailab le WILSONTHADDEUS Admitting Unavailab le STENCELBARBARA Primary Care Unavailab AMRIK Kim Consulting Unavailable LEB, POLA B Referring Unavailable STENCEL, BARBARA Neri Primary Care Unavailable COLE LORENZ Attending Unavailable LEB, POLA B Referring Unavailable STENCEL, BARBARA D Primary Care Unavailable LEB, POLA B Referring Unavailable STENCEL, BARBARA D Primary Care Unavailable JANETTE LIN Attending Unavailable LEB, POLA B Referring Unavailable STENCEL, BARBARA D Primary Care Unavailable LEB, POLA B Referring Unavailable STENCEL, BARBARA D Primary Care Unavailable LEB, POLA B Referring Unavailable STENCEL, BARBARA D Primary Care Unavailable JANETTE LIN Attending Unavailable LEB, POLA Lalo Referring Unavailable STENCEL, BARBARA D Primary Care Unavailable LEB, POLA B Referring Unavailable STENCEL, BARBARA D Primary Care Unavailable LEB, POLA B Referring Unavailable STENCEL, BARBARA D Primary Care Unavailable JANETTE LIN Attending Unavailable LEB, POLA B Referring Unavailable STENCEL, BARBARA D Primary Care Unavailable LEB, POLA B Referring Unavailable STENCEL, BARBARA D Primary Care Unavailable LEB, POLA B Referring Unavailable STENCEL, BARBARA D Primary Care Unavailable STENCEL, BARBARA ALBERTO Primary Care Unavailab le WILSON, THADDEUS KO Attending Unavailab le STENCEL, BARBARA ALBERTO Primary Care Unavailab le WILSON, THADDEUS KO Attending Unavailab le LEB, POLA Lalo Attending Unavailable STENCEL, BARBARA D Referring Unavailable STENCEL, BARBARA D Primary Care Unavailable LEB, POLA May Attending Unavailable STENCEL, BARBARA D Primary Care Unavailable WOODNATALIIA Attending Unavailable STENCEL, BARBARA D Primary Care Unavailable CHRIS DE LA GARZA Attending Unavailable STENCEL, BARBARA D Primary Care Unavailable HELENE SHEA Attending Unavailable STENCEL, BARBARA D Referring Unavailable STENCEL, BARBARA D Primary Care Unavailable STENCEL, BARBARA D Attending Unavailable STENCEL, BARBARA D Primary Care Unavailable STENCEL, BARBARA D Attending Unavailable WOODNATALIIA Referring Unavailable STENCEL, BARBARA D Primary Care Unavailable Allergies Allergy Classification Reported Allergen(s) Allergy Type Date of Onset Reaction(s) Facility (20 sources) amoxicillin / clavulanate; Translations: [Augmentin] Drug Allergy 03-12-2017 Unknown [facility] Work Phone: (20 sources) cephalexin; Translations: [CEPHALEXIN] Drug Allergy 03-12-2017 Hives [facility] Work Phone: (1 source) amoxicillin / clavulanate; Translations: [facility]in[facility] Current Medications Medication Drug Class(es) Dates Sig (Normalized) Sig (Original) acetaminophen 325 mg / oxyCODONE hydrochloride 5 mg oral tablet (4 sources) Opioid Agonist Start: 03-07-2017 take 5 tablets by mouth every four hours as needed oxyCODONE-acetamin ophen (PERCOCET) 5-325 mg per tablet Take 5 tablets by mouth every 4 (four) hours as needed for pain. 0 03/07/2017 Active [id number] 200 actuat albuterol 0.09 mg/actuat metered dose inhaler (14 sources) beta2-Adrenergic Agonist Start: 05-26-2023 End: 05-25-2024 take 1-2 puff(s) by inhalation every four hours albuterol 90 mcg/actuation inhaler Indications: Mild intermittent asthma without complication ([facility]) Inhale 1-2 puffs every 4 hours. 36 g 3 05/26/2023 05/25/2024 Active Start: 05-05-2021 albuterol 90 m cg/actuation inhaler Inhale 1 (one) puff to 2 (two) puffs every 6 (six) hours as needed . 05/05/2021 Active Start: 05-05-2021 End: 05-26-2023 take 1-2 puff(s) by inhalation every four hours albuterol 90 mcg/actuation inhaler Inhale 1-2 puffs every 4 hours. 0 05/05/2021 05/26/2023 Discontinued (Reorder) Start: 05-05-2021 take 1-2 puff(s) by inhalation every six hours as needed Albuterol Sulfate HFA 108 (90 Base) MCG/ACT Inhalation Aerosol Solution INHALE 1 TO 2 PUFFS EVERY 6 HOURS NEEDED. Quantity: 3 Refills: 0 Ordered: 23-Apr-2022 Chris De La Garza MD Start : 05-May-2021 Active cephalexin 500 mg oral capsule (2 sources) Cephalosporin Antibacterial Start: 03-07-2017 take 1 capsule by mouth four times daily cephALEXin (KEFLEX) 500 MG capsule TAKE 1 CAPSULE BY MOUTH FOUR TIMES DAILY FOR 7 DAYS 0 03/07/2017 Active cetirizine hydrochloride 10 mg oral tablet (15 sources) Histamine-1 Receptor Antagonist Start: 10-18-2021 take 1 tablet by mouth once daily cetirizine (ZyrTEC) 10 mg tablet Take 1 tablet (10 mg) by mouth once daily. 10/18/2021 Active ibuprofen 200 mg oral tablet (17 sources) Nonsteroidal Anti-inflammatory Drug Start: 10-29-2023 ibuprofen (ADVIL,MOTRIN) 200 MG tablet Take 4 tablets every 8 hours [id number] for the first 3 days, then may change to as needed. . 84 tablet 10/29/2023 Active Start: 05-11-2023 End: 05-10-2024 take 1 tablet by mouth three times daily as needed for pain ibuprofen 800 mg tablet Indications: Chronic right shoulder pain Take 1 tablet (800 mg) by mouth 3 times a day as needed for mild pain (1 - 3) (pain). 60 tablet 11 05/11/2023 05/10/2024 Active Start: 01-09-2022 End: 01-09-2023 take 1 tablet by mouth every six hours as needed ibuprofen 800 mg tablet Take 1 tablet (800 mg) by mouth every 6 hours if needed. 0 01/09/2022 11/17/2022 Discontinued (Therapy completed) meloxicam 15 mg oral tablet (1 source) Nonsteroidal Anti-inflammatory Drug Start: 11-17-2022 End: 11-17-2023 take 1 tablet by mouth once daily meloxicam (Mobic) 15 mg tablet Indications: Chronic right shoulder pain Take 1 tablet (15 mg) by mouth once daily. 90 tablet 3 11/17/2022 11/17/2023 Active methylPREDNISolone 4 mg oral tablet (1 source) Corticosteroid Start: 07-01-2023 End: 07-01-2023 take 1 tablet by mouth once methylPREDNISolone (Medrol Dospak) 4 mg tablets Indications: Chronic pain of both shoulders Take 1 tablet (4 mg) by mouth 1 time for 1 dose. Use as directed by package instructions 21 tablet 0 07/01/2023 07/01/2023 Active montelukast 10 mg oral tablet (13 sources) Leukotriene Receptor Antagonist Start: 10-23-2021 take 1 tablet by mouth once daily at bedtime montelukast (Singulair) 10 mg tablet Take 1 tablet (10 mg) by mouth once daily at bedtime. 10/23/2021 Active omeprazole 20 mg delayed release oral capsule (16 sources) Proton Pump Inhibitor Start: 05-11-2023 End: 05-10-2024 take 1 capsule by mouth once daily omeprazole (PriLOSEC) [address] capsule Indications: Gastroesophageal reflux disease without esophagitis Take 1 capsule (20 mg) by mouth once daily. 90 capsule 3 05/11/2023 05/10/2024 Active Start: 10-18-2021 take 1 capsule by mo [facility] once daily omeprazole (PriLOSEC) [address] capsule Take 1 capsule (20 mg) by mouth once daily. 0 10/18/2021 Active Start: 10-18-2021 End: 10-18-2021 PriLOSEC OTC 20 MG Oral Tabl et Delayed Release Quantity: 0 Refills: 0 Ordered: 18-Oct-2021 DO Start : 18-Oct-2021 End : 18-Oct-2021 Complete take 1 tablet by vickey once daily omeprazole (PRILOSEC OTC) 20 MG tablet Take 1 (one) tablet (20 mg total) by mouth daily . Active ondansetron 4 mg disintegrating oral tablet (1 source) Serotonin-3 Receptor Antagonist Start: 10-28-2023 take 1 tablet by mouth every six hours as needed ondansetron (ZOFRAN-ODT) 4 MG disintegrating tablet Dissolve 1 (one) tablet (4 mg total) on top of tongue every 6 (six) hours as needed . 20 tablet 10/28/2023 Active Completed/Discontinued Medications Medication Drug Class(es) Dates Sig (Normalized) Sig (Original) ketorolac tromethamine 10 mg oral tablet (1 source) Nonsteroidal Anti-inflammatory Drug, Cyclooxygenase Inhibitor Start: 01-07-2022 End: 01-12-2022 take 1 tablet by mouth every six hours as needed ketorolac (TORADOL) 10 mg tablet Take 1 (one) tablet (10 mg total) by mouth every 6 (six) hours as needed . 20 tablet 0 01/07/2022 01/12/2022 1 ml triamcinolone acetonide 40 mg/ml injection (16 sources) Corticosteroid Start: 11-17-2022 End: 11-17-2022 triamcinolone acetonide (Kenalog-40) injection 40 mg Start: 10-18-2021 take 1 spray(s) nasa l route once daily triamcinolone (Nasacort) 55 mcg nasal inhaler Administer 1 spray into affected nostril(s) once daily. 10/18/2021 Active Problems Active Problems Problem Classification Problem Date Documented Date Episodic/Chronic Asthma (20 sources) Asthma; Translations: [Asthma, unspecified type, unspecified] Onset: 2 02-05-2022 Chronic Diverticulosis and diverticulitis (12 sources) Diverticulitis of large intestine with perforation and abscess without bleeding; Translations: [Diverticulitis of intestine] Onset: 4 Chronic Esophageal disorders (17 sources) Gastroesophageal reflux disease without esophagitis; Translations: [Esophageal reflux] Onset: 2 02-05-2022 Chronic Mood disorders (17 sources) Depressive disorder; Translations: [Depressive disorder, not elsewhere classified] Onset: 2 02-05-2022 Chronic Open wounds of extremities (5 sources) Amputated finger; Translations: [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, initial encounter] Onset: 7 03-12-2017 Chronic Other injuries and conditions due to external causes (1 source) Injury of elbow; Translations: [Unspecified injury of right elbow, initial encounter] Episodic Other nervous system disorders (11 sources) Bilateral carpal tunnel syndrome; Translations: [Carpal tunnel syndrome, bilateral upper limbs] Onset: 3 Chronic Other nervous system disorders (2 sources) Carpal tunnel syndrome; Translations: [Carpal tunnel syndrome] Chronic Other nervous system disorders (1 source) Carpal tunnel syndrome of right wrist; Translations: [Carpal tunnel syndrome, right upper limb] Chronic Other nervous system disorders (6 sources) Other chronic pain; Translations: [Other chronic pain] Onset: 3 Chronic Other non-traumatic joint disorders (10 sources) Bilateral chronic pain of upper limbs; Translations: [Pain in right shoulder] Onset: 4 05-26-2023 Episodic Other nutritional; endocrine; and metabolic disorders (2 sources) Obesity; Translations: [Obesity, unspecified] Chronic Other upper respiratory disease (14 sources) Allergic rhinitis; Translations: [Allergic rhinitis due to other allergen] Onset: 3 11-13-2022 Chronic Spondylosis; intervertebral disc disorders; other back problems (14 sources) Thoracic arthritis; Translations: [Thoracic spondylosis without myelopathy] Onset: 3 11-13-2022 Chronic Unclassified (2 sources) 1 WK Re CK diverticulitis RTW Onset: Past or Other Problems Problem Classification Problem Date Documented Da te Episodic/Chronic Abdominal hernia (18 sources) Inguinal hernia; Translations: [Inguinal hernia, without mention of obstruction or gangrene, unilateral or unspecified (not specified as recurrent)] Onset: 11-13-2022 11-13-2022 Episodic Other bone disease and musculoskeletal deformities (4 sources) Amputated finger; Translations: [Amputation of left index finger] Onset: 03-12-2017 03-12-2017 Episodic Other non-traumatic joint disorders (16 sources) Chronic pain of right upper limb; Translations: [Pain in joint, shoulder region] Onset: 11-13-2022 11-17-2022 Episodic Other non-traumatic joint disorders (6 sources) Pain in right shoulder; Translations: [Pain in right shoulder] Onset: 11-13-2022 Episodic Other non-traumatic joint disorders (6 sources) Pain in left shoulder; Translations: [Pain in left shoulder] Onset: 06-30-2023 Episodic Residual codes; unclassified (14 sources) Insomnia; Translations: [Insomnia, unspecified] Onset: 11-13-2022 11-13-2022 Episodic Spondylosis; intervertebral disc disorders; other back problems (7 sources) Neck pain; Translations: [Cervicalgia] Onset: 07-27-2023 07-27-2023 Episodic Unclassified (10 sources) Onset: 11-17-2022 Resolved: 07-27-2023 11-17-2022 Results Test Name Value Interpretation Reference Range Facility CBCon 10-29-2023 AUTO NRBC 0.0 % Normal [facility] Comment on above: Performed By: #### [id number] #### [address] [place], [place] [address] Eze Mayes M.D. [id number] AUTO NRBC ABS COUNT 0.00 K/mcL Normal 0.00-0.00 [facility] Comment on above: Performed By: #### [id number] #### [address] [place], [place] [address] Eze Mayes M.D. [id number] Erythrocyte distribution width (RBC) [Ratio] 12.7 % Normal 11.6-14.8 [facility] Comment on above: Performed By: #### [id number] #### [address] [place] [address] Eze Mayes M.D. [id number] Hematocrit (Bld) [Volume fraction] 42.2 % Normal 41.0-53.0 [facility] Comment on above: Performed By: #### [id number] #### [address] [place] [address] Eze Mayes M.D. [id number] Hemoglobin (Bld) [Mass/Vol] 14.2 g/dL Normal 13.5-17.5 [facility] Comment on above: Performed By: #### 4 [id number] #### [address] [place] [address] Eze Mayes M.D. [id number] MCH (RBC) [Entitic mass] 31.8 pg Normal 26.0-34.0 [facility] Comment on above: Performed By: #### 4 [id number] #### [address] [place] [address] Eze Mayes M.D. [id number] MCV (RBC) [Entitic vol] 94.4 fL Normal 80.0-100.0 [facility] Comment on above: Performed By: #### 4 [id number] #### [address] [place] [address] Eze Mayes M.D. [id number] MEAN CORPUSCULAR HEMOGLOBIN CONC 33.6 g/dL Normal 31.0-37.0 [facility] Comment on above: Performed By: #### [id number] #### [address] [place] [address] Eze Mayes M.D. [id number] Platelet mean volume (Bld) [Entitic vol] 9.2 fL Low 9.4-12.4 [facility] Comment on above: Performed By: #### 4 [id number] #### [address] [place] [address] Eze Mayes M.D. [id number] Platelets (Bld) [#/Vol] 325 10*3/uL Normal 150-400 [facility] Comment on above: Performed By: #### 4 [id number] #### [address] [place] [address] Eze Mayes M.D. [id number] RBC (Bld) [#/Vol] 4.47 10*6/uL Low 4.50-5.90 [facility] Comment on above: Performed By: #### 4 [id number] #### [facility] LAB [address] [place] [id number] Eze Mayes M.D. [id number] WBC (Bld) [#/Vol] 8.71 10*3/uL Normal 4.50-11.00 [facility] Comment on above: Performed By: #### 4 [id number] #### [address] [place] [address] Eze Mayes M.D. [id number] CHEM 10-29-2023 Anion gap [Moles/Vol] 15 mmol/L Normal 10-20 [facility] Comment on above: Order Comment: [facility] has implemented the eGFR calculation approach that does not have a coefficient for race that conforms to the NKF-ASN Task Force Recommendations. Performed By: #### 4 [id number] #### [address] [place], [place] [address] Eze Mayes M.D. [id number] Chloride [Moles/Vol] 104 mmol/L Normal 98-108 [facility] Comment on above: Order Comment: [facility] has implemented the eGFR calculation approach that does not have a coefficient for race that conforms to the NKF-ASN Task Force Recommendations. Performed By: #### 4 [id number] #### [address] [place] [id number] Eze Mayes M.D. [id number] Creatinine [Mass/Vol] 1.16 mg/dL Normal 0.50-1.30 [facility] Comment on above: Order Comment: [facility] has implemented the eGFR calculation approach that does not have a coefficient for race that conforms to the NKF-ASN Task Force Recommendations. Performed By: #### 4 [id number] #### [address] [place], [place] [address] Eze Mayes M.D. [id number] EGFR 83 mL/min/1.73 m2 Normal >=[address] [facility] Comment on above: Order Comment: [facility] has implemented the eGFR calculation approach that does not have a coefficient for race that conforms to the NKF-ASN Task Force Recommendations. Result Comment: Tatiana mated GFR was calculated using the 2020 CKD-EPI creatinine equation. Performed By: #### 4 [id number] #### [address] [place] [address] Eze Mayes M.D. [id number] Glucose [Mass/Vol] 95 mg/dL Normal 65-99 [facility] Comment on above: Order Comment: [facility] has implemented the eGFR calculation approach that does not have a coefficient for race that conforms to the NKF-ASN Task Force Recommendations. Performed By: #### 4 [id number] #### [address] [place] [address] Eze Mayes M.D. [id number] HCO3 (Bld) [Moles/Vol] 24 mmol/L Normal 21-32 [facility] Comment on above: Order Comment: [facility] has implemented the eGFR calculation approach that does not have a coefficient for race that conforms to the NKF-ASN Task Force Recommendations. Performed By: #### 4 [id number] #### [address] [place] [address] Eze Mayes M.D. [id number] Potassium [Moles/Vol] 3.9 mmol/L Normal 3.5-5.1 [facility] Comment on above: Order Comment: [facility] has implemented the eGFR calculation approach that does not have a coefficient for race that conforms to the NKF-ASN Task Force Recommendations. Performed By: #### 4 [id number] #### [address] [place] [address] Eze Mayes M.D. [id number] Sodium [Moles/Vol] 139 mmol/L Normal 135-145 [facility] Comment on above: Order Comment: [facility] has implemented the eGFR calculation approach that does not have a coefficient for race that conforms to the NKF-ASN Task Force Recommendations. Performed By: #### 4 [id number] #### [address] [place] [address] Eze Mayes M.D. [id number] Urea nitrogen [Mass/Vol] 7 mg/dL Low 8-25 [facility] Comment on above: Order Comment: [facility] has implemented the eGFR calculation approach that does not have a coefficient for race that conforms to the NKF-ASN Task Force Recommendations. Performed By: #### 4 [id number] #### [address] [place] [address] Eze Mayes M.D. [id number] Urea nitrogen/Creatini ne [Mass ratio] 6.0 mg/mg Low 10.0-20.0 [facility] Comment on above: Order Comment: [facility] has implemented the eGFR calculation approach that does not have a coefficient for race that conforms to the NKF-ASN Task Force Recommendations. Performed By: #### 4 [id number] #### [address] [place] [address] Eze Mayes M.D. [id number] CBCon 10-28-2023 AUTO NRBC 0.0 % Normal [facility] Comment on above: Performed By: #### 4 [id number] #### [address] [place] [address] Eze Mayes M.D. [id number] AUTO NRBC ABS COUNT 0.00 K/mcL Normal 0.00-0.00 [facility] Comment on above: Performed By: #### 4 [id number] #### LAB [address] [place] [id number] Eze Mayes M.D. [id number] Erythrocyte distribution width (RBC) [Ratio] 12.8 % Normal 11.6-14.8 [facility] Comment on above: Performed By: #### 4 [id number] #### [address] [place] [address] Eze Mayes M.D. [id number] Hematocrit (Bld) [Volume fraction] 40.2 % Low 41.0-53.0 [facility] Comment on above: Performed By: #### 4 [id number] #### [address] [place] [address] Eze Mayes M.D. [id number] Hemoglobin (Bld) [Mass/Vol] 13.2 g/dL Low 13.5-17.5 [facility] Comment on above: Performed By: #### 4 [id number] #### [address] [place] [address] Eze Mayes M.D. [id number] MCH (RBC) [Entitic mass] 30.9 pg Normal 26.0-34.0 [facility] Comment on above: Performed By: #### 4 [id number] #### [address] [place] [address] Eze Mayes M.D. [id number] MCV (RBC) [Entitic vol] 94.1 fL Normal 80.0-100.0 [facility] Comment on above: Performed By: #### 4 [id number] #### [address] [place] [address] Eze Mayes M.D. [id number] MEAN CORPUSCULAR HEMOGLOBIN CONC 32.8 g/dL Normal 31.0-37.0 [facility] Comment on above: Performed By: #### 4 [id number] #### [address] [place] [address] Eze Mayes M.D. [id number] Platelet mean volume (Bld) [Entitic vol] 9.4 fL Normal 9.4-12.4 [facility] Comment on above: Performed By: #### 4 [id number] #### [address] [place] [address] Eze Mayes M.D. [id number] Platelets (Bld) [#/Vol] 298 10*3/uL Normal 150-400 [facility] Comment on above: Performed By: #### 4 [id number] #### [address] [place], [place] [address] Eze Mayes M.D. [id number] RBC (Bld) [#/Vol] 4.27 10*6/uL Low 4.50-5.90 [facility] Comment on above: Performed By: #### 4 [id number] #### [facility] LAB [address] [place] [id number] Eze Mayes M.D. [id number] WBC (Bld) [#/Vol] 8.71 10*3/uL Normal 4.50-11.00 [facility] Comment on above: Performed By: #### 4 [id number] #### [address] [place] [address] Eze Mayes M.D. [id number] CHEM 710-28-2023 Anion gap [Moles/Vol] 16 mmol/L Normal 10-20 [facility] Comment on above: Order Comment: [facility] has implemented the eGFR calculation approach that does not have a coefficient for race that conforms to the NKF-ASN Task Force Recommendations. Performed By: #### 4 [id number] #### [address] [place] [address] Eze Mayes M.D. [id number] Chloride [Moles/Vol] 103 mmol/L Normal 98-108 [facility] Comment on above: Order Comment: [facility] has implemented the eGFR calculation approach that does not have a coefficient for race that conforms to the NKF-ASN Task Force Recommendations. Performed By: #### 4 [id number] #### [address] [place] [address] Eze Mayes M.D. [id number] Creatinine [Mass/Vol] 1.16 mg/dL Normal 0.50-1.30 [facility] Comment on above: Order Comment: [facility] has implemented the eGFR calculation approach that does not have a coefficient for race that conforms to the NKF-ASN Task Force Recommendations. Performed By: #### 4 [id number] #### LAB [address] [place] [id number] Eze Mayes M.D. [id number] EGFR 83 mL/min/1.73 m2 Normal >=[address] [facility] Comment on above: Order Comment: [facility] has implemented the eGFR calculation approach that does not have a coefficient for race that conforms to the NKF-ASN Task Force Recommendations. Result Comment: Tatiana mated GFR was calculated using the 2020 CKD-EPI creatinine equation. Performed By: #### 4 [id number] #### [address] [place] [address] Eze Mayes M.D. [id number] Glucose [Mass/Vol] 99 mg/dL Normal 65-99 [facility] Comment on above: Order Comment: [facility] has implemented the eGFR calculation approach that does not have a coefficient for race that conforms to the NKF-ASN Task Force Recommendations. Performed By: #### 4 [id number] #### [address] [place] [address] Eze Mayes M.D. [id number] HCO3 (Bld) [Moles/Vol] 24 mmol/L Normal 21-32 [facility] Comment on above: Order Comment: [facility] has implemented the eGFR calculation approach that does not have a coefficient for race that conforms to the NKF-ASN Task Force Recommendations. Performed By: #### 4 [id number] #### LAB [address] [place] [address] Eze Mayes M.D. [id number] Potassium [Moles/Vol] 4.0 mmol/L Normal 3.5-5.1 [facility] Comment on above: Order Comment: [facility] has implemented the eGFR calculation approach that does not have a coefficient for race that conforms to the NKF-ASN Task Force Recommendations. Performed By: #### 4 [id number] #### LAB [address] [address] Eze Mayes M.D. [id number] Sodium [Moles/Vol] 139 mmol/L Normal 135-145 [facility] Comment on above: Order Comment: [facility] has implemented the eGFR calculation approach that does not have a coefficient for race that conforms to the NKF-ASN Task Force Recommendations. Performed By: #### 4 [id number] #### LAB [address] [address] Eze Mayes M.D. [id number] Urea nitrogen [Mass/Vol] 8 mg/dL Normal 8-25 [facility] Comment on above: Order Comment: [facility] has implemented the eGFR calculation approach that does not have a coefficient for race that conforms to the NKF-ASN Task Force Recommendations. Performed By: #### 4 [id number] #### LAB [address] [address] Eze Mayes M.D. [id number] Urea nitrogen/Creatini ne [Mass ratio] 6.9 mg/mg Low 10.0-20.0 [facility] Comment on above: Order Comment: [facility] has implemented the eGFR calculation approach that does not have a coefficient for race that conforms to the NKF-ASN Task Force Recommendations. Performed By: #### 4 [id number] #### LAB [address] [address] Eze Mayes M.D. [id number] CBCon 10-27-2023 AUTO NRBC 0.0 % Normal [facility] Comment on above: Performed By: #### 4 [id number] #### LAB [address] [id number] Eze Mayes M.D. [id number] AUTO NRBC ABS COUNT 0.00 K/mcL Normal 0.00-0.00 [facility] Comment on above: Performed By: #### 4 [id number] #### LAB [address] [id number] Eze Mayes M.D. [id number] Erythrocyte distribution width (RBC) [Ratio] 12.7 % Normal 11.6-14.8 [facility] Comment on above: Performed By: #### 4 [id number] #### LAB [address] [address] Eze Mayes M.D. [id number] Hematocrit (Bld) [Volume fraction] 40.1 % Low 41.0-53.0 [facility] Comment on above: Performed By: #### 4 [id number] #### LAB [address] [address] Eze Mayes M.D. [id number] Hemoglobin (Bld) [Mass/Vol] 13.4 g/dL Low 13.5-17.5 [facility] Comment on above: Performed By: #### 4 [id number] #### LAB [address] [address] Eze Mayes M.D. [id number] MCH (RBC) [Entitic mass] 31.8 pg Normal 26.0-34.0 [facility] Comment on above: Performed By: #### 4 [id number] #### LAB [address] [address] Eze Mayes M.D. [id number] MCV (RBC) [Entitic vol] 95.0 fL Normal 80.0-100.0 [facility] Comment on above: Performed By: #### 4 [id number] #### LAB [address] [address] Eze Mayes M.D. [id number] MEAN CORPUSCULAR HEMOGLOBIN CONC 33.4 g/dL Normal 31.0-37.0 [facility] Comment on above: Performed By: #### 4 [id number] #### LAB [address] [address] Eze Mayes M.D. [id number] Platelet mean volume (Bld) [Entitic vol] 9.4 fL Normal 9.4-12.4 [facility] Comment on above: Performed By: #### 4 [id number] #### LAB [address] [address] Eze Mayes M.D. [id number] Platelets (Bld) [#/Vol] 307 10*3/uL Normal 150-400 [facility] Comment on above: Performed By: #### 4 [id number] #### LAB [address] [place], [place] [address] Eze Mayes M.D. [id number] RBC (Bld) [#/Vol] 4.22 10*6/uL Low 4.50-5.90 [facility] Comment on above: Performed By: #### 4 [id number] #### LAB [address] [address] Eze Mayes M.D. [id number] WBC (Bld) [#/Vol] 8.43 10*3/uL Normal 4.50-11.00 [facility] Comment on above: Performed By: #### 4 [id number] #### LAB [address] [address] Eze Mayes M.D. [id number] CHEM 10-27-2023 Anion gap [Moles/Vol] 16 mmol/L Normal 10-20 [facility] Comment on above: Order Comment: [facility] has implemented the eGFR calculation approach that does not have a coefficient for race that conforms to the NKF-ASN Task Force Recommendations. Performed By: #### 4 [id number] #### LAB [address] [address] Eze Maeys M.D. [id number] Chloride [Moles/Vol] 102 mmol/L Normal 98-108 [facility] Comment on above: Order Comment: [facility] has implemented the eGFR calculation approach that does not have a coefficient for race that conforms to the NKF-ASN Task Force Recommendations. Performed By: #### 4 [id number] #### LAB [address] [address] Eze Mayes M.D. [id number] Creatinine [Mass/Vol] 1.10 mg/dL Normal 0.50-1.30 [facility] Comment on above: Order Comment: [facility] has implemented the eGFR calculation approach that does not have a coefficient for race that conforms to the NKF-ASN Task Force Recommendations. Performed By: #### 4 [id number] #### LAB [address] [address] Eze Mayes M.D. [id number] EGFR 89 mL/min/1.73 m2 Normal >=[address] [facility] Comment on above: Order Comment: [facility] has implemented the eGFR calculation approach that does not have a coefficient for race that conforms to the NKF-ASN Task Force Recommendations. Result Comment: Tatiana mated GFR was calculated using the 2020 CKD-EPI creatinine equation. Performed By: #### 4 [id number] #### LAB [address] [address] Eze Mayes M.D. [id number] Glucose [Mass/Vol] 96 mg/dL Normal 65-99 [facility] Comment on above: Order Comment: [facility] has implemented the eGFR calculation approach that does not have a coefficient for race that conforms to the NKF-ASN Task Force Recommendations. Performed By: #### 4 [id number] #### LAB [address] [address] Eze Mayes M.D. [id number] HCO3 (Bld) [Moles/Vol] 24 mmol/L Normal 21-32 [facility] Comment on above: Order Comment: [facility] has implemented the eGFR calculation approach that does not have a coefficient for race that conforms to the NKF-ASN Task Force Recommendations. Performed By: #### 4 6953 #### LAB [address] [address] Eze Mayes M.D. [id number] Potassium [Moles/Vol] 3.6 mmol/L Normal 3.5-5.1 [facility] Comment on above: Order Comment: [facility] has implemented the eGFR calculation approach that does not have a coefficient for race that conforms to the NKF-ASN Task Force Recommendations. Performed By: #### 4 [id number] #### LAB [address] [address] Eze Mayes M.D. [id number] Sodium [Moles/Vol] 138 mmol/L Normal 135-145 [facility] Comment on above: Order Comment: [facility] has implemented the eGFR calculation approach that does not have a coefficient for race that conforms to the NKF-ASN Task Force Recommendations. Performed By: #### 4 [id number] #### LAB [address] [place], [place] [address] Eze Mayes M.D. [id number] Urea nitrogen [Mass/Vol] 4 mg/dL Low 8-25 [facility] Comment on above: Order Comment: [facility] has implemented the eGFR calculation approach that does not have a coefficient for race that conforms to the NKF-ASN Task Force Recommendations. Performed By: #### 4 [id number] #### LAB [address] [place], [place] [address] Eze Mayes M.D. [id number] Urea nitrogen/Creatini ne [Mass ratio] 3.6 mg/mg Low 10.0-20.0 [facility] Comment on above: Order Comment: [facility] has implemented the eGFR calculation approach that does not have a coefficient for race that conforms to the NKF-ASN Task Force Recommendations. Performed By: #### 4 [id number] #### LAB [address] [place], [place] [address] E[address]. [id number] CT ABDOMEN PELVIS WITH IV CO NTRAST ONLYon 10-27-2023 CT ABDOMEN PELVIS WITH IV CONTRAST ONLY EXAMINATION: ENHANCED CT SCAN OF THE ABDOMEN AND PELVIS: 10/27/2023. HISTORY: Dx: K57.20 (Diverticulitis of large intestine with perforation without abscess or bleeding) Injury/Trauma or Illness?:Illness/Other How long have you had these symptoms (acute/chronic)?:Acute Diverticulitis, complication suspected COMPARISON FILMS: Enhanced CT scan of the abdomen and pelvis: 10/23/2023. TECHNIQUE: 3 mm axial images from lung bases through ischial tuberosities following administration of intravenous contrast were obtained. Sagittal, coronal reconstructions were also performed. Dose reduction techniques were achieved by using automated exposure control and/or adjustment of mA and/or kV according to patient size and/or use of iterative reconstruction technique. FINDINGS: Lung bases demonstrate normal-appearing lung bases. There are probably minimal dependent atelectatic changes to the lung bases. The heart size seems normal. There are no filling defects in the cardiac chambers. CT ABDOMEN: Liver is slightly low in attenuation, compatible with fatty liver without discrete lesions. The spleen, gallbladder, adrenal glands, pancreas appear normal. There is no hydronephrosis or nephrolithiasis involving the left or the right kidney. The abdominal aorta has normal caliber. There is no retroperitoneal or mesenteric adenopathy. The bowel loops are of normal caliber with normal-appearing appendix. There are scattered diverticula in the colon. CT PELVIS: There is a thickened appearance to the sigmoid colon, tortuous appearance as well as induration of surrounding fat with an inflamed diverticulum with possible focal perforation and developing or an abscess, which on image 124 sequence 2 measures approximately 2.1 x 3.2 cm. This component previously measured approximately 2.3 x 2.5 cm. There is induration of surrounding fat and there is some fluid along the inferior aspect, this 2nd component of fluid, which is contiguous with the above mention fluid component, measures 3.6 cm in the widest transverse dimension. The entire complex on image 125 sequence 2 measures 3.7 x 5.1 cm, previously this entire process measuring approximately 4.7 x 6.0 cm. There is still induration of surrounding fat, some thickening of the underlying colon. The bladder seems normal. There is mild thickened appearance and new pockets of fluid collections are seen. The visualized osseous structures are normal. Discrete pockets of fluid collections IMPRESSION: 1. Acute diverticulitis with abscess formation. The component of this abscess which has air in the non dependent portion is contiguous with the lumen of the sigmoid colon. This seems to have slightly diminished in caliber however, overall grossly unchanged with induration of surrounding fat. There is thickening of the underlying colon. Besides there is diverticular disease elsewhere in the colon. 2. No nephro- or ureterolithiasis. 3. Fatty liver. 4. Normal appendix. 5. Thickened bladder wall which could be due to incomplete distension, however, underlying cystitis cannot be excluded. [email or web address] Workstation ID: [id number] Dictated by: SHWETA GASCA on ThuOct 27, 2023 1:41:03 PM EDT Transcribed by: JINA ONEIL on ThuOct 27, 2023 2:07:31 PM EDT Finalized by: SHWETA GASCA on ThuOct 27, 2023 2:34:38 PM EDT Normal [facility] Comment on above: Order Comment: Injur y/Trauma or Illness?:Illness/OtherHow long have you had these symptoms (acute/chronic)?:AcuteReason for exam?:abdominal pain, hx diverticulitisType of Exam?:InitialAdditional signs and symptoms?:n/a CBCon 10-26-2023 AUTO NRBC 0.0 % Normal [facility] Comment on above: Performed By: #### 4 [id number] #### LAB [address] [address] Eze Mayes M.D. [id number] AUTO NRBC ABS COUNT 0.00 K/mcL Normal 0.00-0.00 [facility] Comment on above: Performed By: #### 4 [id number] #### LAB [address] [address] Eze Mayes M.D. [id number] Erythrocyte distribution width (RBC) [Ratio] 12.7 % Normal 11.6-14.8 [facility] Comment on above: Performed By: #### 4 [id number] #### LAB [address] [address] Eze Mayes M.D. [id number] Hematocrit (Bld) [Volume fraction] 40.4 % Low 41.0-53.0 [facility] Comment on above: Performed By: #### 4 [id number] #### LAB [address] [address] Eze Mayes M.D. [id number] Hemoglobin (Bld) [Mass/Vol] 13.4 g/dL Low 13.5-17.5 [facility] Comment on above: Performed By: #### 4 [id number] #### LAB [address] [address] Eze Mayes M.D. [id number] MCH (RBC) [Entitic mass] 31.8 pg Normal 26.0-34.0 [facility] Comment on above: Performed By: #### 4 [id number] #### LAB [address] [address] Eze Mayes M.D. [id number] MCV (RBC) [Entitic vol] 96.0 fL Normal 80.0-100.0 [facility] Comment on above: Performed By: #### 4 [id number] #### LAB [address] [address] Eze Mayes M.D. [id number] MEAN CORPUSCULAR HEMOGLOBIN CONC 33.2 g/dL Normal 31.0-37.0 [facility] Comment on above: Performed By: #### 4 [id number] #### LAB [address] [address] Eze Mayes M.D. [id number] Platelet mean volume (Bld) [Entitic vol] 9.4 fL Normal 9.4-12.4 [facility] Comment on above: Performed By: #### 4 [id number] #### LAB [address] [address] Eze Mayes M.D. [id number] Platelets (Bld) [#/Vol] 263 10*3/uL Normal 150-400 [facility] Comment on above: Performed By: #### 4 [id number] #### LAB [address] [address] Eze Mayes M.D. [id number] RBC (Bld) [#/Vol] 4.21 10*6/uL Low 4.50-5.90 [facility] Comment on above: Performed By: #### 4 [id number] #### LAB [address] [id number] Eze Mayes M.D. [id number] WBC (Bld) [#/Vol] 9.47 10*3/uL Normal 4.50-11.00 [facility] Comment on above: Performed By: #### 4 [id number] #### LAB [address] [address] Eze Mayes M.D. [id number] CHEM 10-26-2023 Anion gap [Moles/Vol] 18 mmol/L Normal 10-20 [facility] Comment on above: Order Comment: [facility] has implemented the eGFR calculation approach that does not have a coefficient for race that conforms to the NKF-ASN Task Force Recommendations. Performed By: #### 4 [id number] #### LAB [address] [address] Eze Mayes M.D. [id number] Chloride [Moles/Vol] 103 mmol/L Normal 98-108 [facility] Comment on above: Order Comment: [facility] has implemented the eGFR calculation approach that does not have a coefficient for race that conforms to the NKF-ASN Task Force Recommendations. Performed By: #### 4 [id number] #### LAB [address] [address] Eze Mayes M.D. [id number] Creatinine [Mass/Vol] 1.17 mg/dL Normal 0.50-1.30 [facility] Comment on above: Order Comment: [facility] has implemented the eGFR calculation approach that does not have a coefficient for race that conforms to the NKF-ASN Task Force Recommendations. Performed By: #### 4 [id number] #### LAB [address] [address] Eze Mayes M.D. [id number] EGFR 82 mL/min/1.73 m2 Normal >=[address] [facility] Comment on above: Order Comment: [facility] has implemented the eGFR calculation approach that does not have a coefficient for race that conforms to the NKF-ASN Task Force Recommendations. Result Comment: Tatiana mated GFR was calculated using the 2020 CKD-EPI creatinine equation. Performed By: #### 4 [id number] #### LAB [address] [address] Eze Mayes M.D. [id number] Glucose [Mass/Vol] 103 mg/dL High 65-99 [facility] Comment on above: Order Comment: [facility] has implemented the eGFR calculation approach that does not have a coefficient for race that conforms to the NKF-ASN Task Force Recommendations. Performed By: #### 4 [id number] #### LAB [address] [address] Eze Mayes M.D. [id number] HCO3 (Bld) [Moles/Vol] 20 mmol/L Low 21-32 [facility] Comment on above: Order Comment: [facility] has implemented the eGFR calculation approach that does not have a coefficient for race that conforms to the NKF-ASN Task Force Recommendations. Performed By: #### 4 [id number] #### LAB [address] [address] Eze Mayes M.D. [id number] Potassium [Moles/Vol] 4.5 mmol/L Normal 3.5-5.1 [facility] Comment on above: Order Comment: [facility] has implemented the eGFR calculation approach that does not have a coefficient for race that conforms to the NKF-ASN Task Force Recommendations. Result Comment: Slig htly Hemolyzed Performed By: #### 4 [id number] #### [facility] LAB [address] [address] Eze Mayes M.D. [id number] Sodium [Moles/Vol] 136 mmol/L Normal 135-145 [facility] Comment on above: Order Comment: [facility] has implemented the eGFR calculation approach that does not have a coefficient for race that conforms to the NKF-ASN Task Force Recommendations. Performed By: #### 4 [id number] #### LAB [address] [address] Eze Mayes M.D. [id number] Urea nitrogen [Mass/Vol] 6 mg/dL Low 8-25 [facility] Comment on above: Order Comment: [facility] has implemented the eGFR calculation approach that does not have a coefficient for race that conforms to the NKF-ASN Task Force Recommendations. Performed By: #### 4 [id number] #### LAB [address] [address] Eze Mayes M.D. [id number] Urea nitrogen/Creatini ne [Mass ratio] 5.1 mg/mg Low 10.0-20.0 [facility] Comment on above: Order Comment: [facility] has implemented the eGFR calculation approach that does not have a coefficient for race that conforms to the NKF-ASN Task Force Recommendations. Performed By: #### 4 [id number] #### LAB [address] [address] Eze Mayes M.D. [id number] CBCon 10-25-2023 AUTO NRBC 0.0 % Normal [facility] Comment on above: Performed By: #### 4 [id number] #### LAB [address] [address] Eze Mayes M.D. [id number] AUTO NRBC ABS COUNT 0.00 K/mcL Normal 0.00-0.00 [facility] Comment on above: Performed By: #### 4 [id number] #### LAB [address] [address] Eze Mayes M.D. [id number] Erythrocyte distribution width (RBC) [Ratio] 13.2 % Normal 11.6-14.8 [facility] Comment on above: Performed By: #### 4 [id number] #### LAB [address] [address] Eze Mayes M.D. [id number] Hematocrit (Bld) [Volume fraction] 39.6 % Low 41.0-53.0 [facility] Comment on above: Performed By: #### 4 [id number] #### LAB [address] [address] Eze Mayes M.D. [id number] Hemoglobin (Bld) [Mass/Vol] 12.8 g/dL Low 13.5-17.5 [facility] Comment on above: Performed By: #### 4 [id number] #### LAB [address] [address] Eze Mayes M.D. [id number] MCH (RBC) [Entitic mass] 31.7 pg Normal 26.0-34.0 [facility] Comment on above: Performed By: #### 4 [id number] #### LAB [address] [address] Eze Mayes M.D. [id number] MCV (RBC) [Entitic vol] 98.0 fL Normal 80.0-100.0 [facility] Comment on above: Performed By: #### 4 [id number] #### LAB [address] [address] Eze Mayes M.D. [id number] MEAN CORPUSCULAR HEMOGLOBIN CONC 32.3 g/dL Normal 31.0-37.0 [facility] Comment on above: Performed By: #### 4 [id number] #### LAB [address] [address] Eze Mayes M.D. [id number] Platelet mean volume (Bld) [Entitic vol] 10.2 fL Normal 9.4-12.4 [facility] Comment on above: Performed By: #### 4 [id number] #### LAB [address] [address] Eze Mayes M.D. [id number] Platelets (Bld) [#/Vol] 263 10*3/uL Normal 150-400 [facility] Comment on above: Performed By: #### 4 [id number] #### LAB [address] [address] Eze Mayes M.D. [id number] RBC (Bld) [#/Vol] 4.04 10*6/uL Low 4.50-5.90 [facility] Comment on above: Performed By: #### 4 [id number] #### LAB [address] [address] Eze Mayes M.D. [id number] WBC (Bld) [#/Vol] 9.94 10*3/uL Normal 4.50-11.00 [facility] Comment on above: Performed By: #### 4 [id number] #### LAB [address] [address] Eze Mayes M.D. [id number] CHEM 710-25-2023 Anion gap [Moles/Vol] 15 mmol/L Normal 10-20 [facility] Comment on above: Order Comment: [facility] has implemented the eGFR calculation approach that does not have a coefficient for race that conforms to the NKF-ASN Task Force Recommendations. Performed By: #### 4 [id number] #### LAB [address] [address] Eze Mayes M.D. [id number] Chloride [Moles/Vol] 103 mmol/L Normal 98-108 [facility] Comment on above: Order Comment: [facility] has implemented the eGFR calculation approach that does not have a coefficient for race that conforms to the NKF-ASN Task Force Recommendations. Performed By: #### 4 [id number] #### LAB [address] [address] Eze Mayes M.D. [id number] Creatinine [Mass/Vol] 1.15 mg/dL Normal 0.50-1.30 [facility] Comment on above: Order Comment: [facility] has implemented the eGFR calculation approach that does not have a coefficient for race that conforms to the NKF-ASN Task Force Recommendations. Performed By: #### 4 [id number] #### LAB [address] [address] Eze Mayes M.D. [id number] EGFR 84 mL/min/1.73 m2 Normal >=[address] [facility] Comment on above: Order Comment: [facility] has implemented the eGFR calculation approach that does not have a coefficient for race that conforms to the NKF-ASN Task Force Recommendations. Result Comment: Tatiana mated GFR was calculated using the 2020 CKD-EPI creatinine equation. Performed By: #### 4 [id number] #### LAB [address] [address] Eze Mayes M.D. [id number] Glucose [Mass/Vol] 88 mg/dL Normal 65-99 [facility] Comment on above: Order Comment: [facility] has implemented the eGFR calculation approach that does not have a coefficient for race that conforms to the NKF-ASN Task Force Recommendations. Performed By: #### 4 [id number] #### LAB [address] [address] Eze Mayes M.D. [id number] HCO3 (Bld) [Moles/Vol] 25 mmol/L Normal 21-32 [facility] Comment on above: Order Comment: [facility] has implemented the eGFR calculation approach that does not have a coefficient for race that conforms to the NKF-ASN Task Force Recommendations. Performed By: #### 4 [id number] #### LAB [address] [place], [place] [address] Eze Mayes M.D. [id number] Potassium [Moles/Vol] 4.3 mmol/L Normal 3.5-5.1 [facility] Comment on above: Order Comment: [facility] has implemented the eGFR calculation approach that does not have a coefficient for race that conforms to the NKF-ASN Task Force Recommendations. Performed By: #### 4 [id number] #### LAB [address] [address] Eze Mayes M.D. [id number] Sodium [Moles/Vol] 139 mmol/L Normal 135-145 [facility] Comment on above: Order Comment: [facility] has implemented the eGFR calculation approach that does not have a coefficient for race that conforms to the NKF-ASN Task Force Recommendations. Performed By: #### 4 [id number] #### LAB [address] [address] Eze Mayes M.D. [id number] Urea nitrogen [Mass/Vol] 7 mg/dL Low 8-25 [facility] Comment on above: Order Comment: [facility] has implemented the eGFR calculation approach that does not have a coefficient for race that conforms to the NKF-ASN Task Force Recommendations. Performed By: #### 4 [id number] #### LAB [address] [address] Eze Mayes M.D. [id number] Urea nitrogen/Creatini ne [Mass ratio] 6.1 mg/mg Low 10.0-20.0 [facility] Comment on above: Order Comment: [facility] has implemented the eGFR calculation approach that does not have a coefficient for race that conforms to the NKF-ASN Task Force Recommendations. Performed By: #### 4 [id number] #### [facility] LAB [address] [address] Eze Mayes M.D. [id number] CBCon 10-24-2023 AUTO NRBC 0.0 % Normal [facility] Comment on above: Performed By: #### 4 [id number] #### LAB [address] [address] Eze Mayes M.D. [id number] AUTO NRBC ABS COUNT 0.00 K/mcL Normal 0.00-0.00 [facility] Comment on above: Performed By: #### 4 [id number] #### LAB [address] [address] Eze Mayes M.D. [id number] Erythrocyte distribution width (RBC) [Ratio] 13.5 % Normal 11.6-14.8 [facility] Comment on above: Performed By: #### 4 5218 #### LAB [address] [address] Eze Mayes M.D. [id number] Hematocrit (Bld) [Volume fraction] 40.0 % Low 41.0-53.0 [facility] Comment on above: Performed By: #### 4 [id number] #### LAB [address] [address] Eze Mayes M.D. [id number] Hemoglobin (Bld) [Mass/Vol] 13.1 g/dL Low 13.5-17.5 [facility] Comment on above: Performed By: #### 4 [id number] #### LAB [address] [address] Eze Mayes M.D. [id number] MCH (RBC) [Entitic mass] 31.1 pg Normal 26.0-34.0 [facility] Comment on above: Performed By: #### 4 5218 #### LAB [address] [address] Eze Mayes M.D. [id number] MCV (RBC) [Entitic vol] 95.0 fL Normal 80.0-100.0 [facility] Comment on above: Performed By: #### 4 5218 #### MH LAB [address] [address] Eze Mayes M.D. [id number] MEAN CORPUSCULAR HEMOGLOBIN CONC 32.8 g/dL Normal 31.0-37.0 [facility] Comment on above: Performed By: #### 4 [id number] #### LAB [address] [address] Eze Mayes M.D. [id number] Platelet mean volume (Bld) [Entitic vol] 10.0 fL Normal 9.4-12.4 [facility] Comment on above: Performed By: #### 4 5218 #### LAB [address] [address] Eze Mayes M.D. [id number] Platelets (Bld) [#/Vol] 227 10*3/uL Normal 150-400 [facility] Comment on above: Performed By: #### 4 5218 #### LAB [address] [address] Eze Mayes M.D. [id number] RBC (Bld) [#/Vol] 4.21 10*6/uL Low 4.50-5.90 [facility] Comment on above: Performed By: #### 4 5218 #### LAB [address] [address] Eze Mayes M.D. [id number] WBC (Bld) [#/Vol] 11.30 10*3/uL High 4.50-11.00 [facility] Comment on above: Performed By: #### 4 5218 #### LAB [address] [address] Eze Mayes M.D. [id number] CBCon 10-23-2023 AUTO NRBC 0.0 % Normal [facility] Comment on above: Performed By: #### 4 5218 #### LAB [address] [address] Eze Mayes M.D. [id number] AUTO NRBC ABS COUNT 0.00 K/mcL Normal 0.00-0.00 [facility] Comment on above: Performed By: #### 4 5218 #### LAB [address] [address] Eze Mayes M.D. [id number] Erythrocyte distribution width (RBC) [Ratio] 13.4 % Normal 11.6-14.8 [facility] Comment on above: Performed By: #### 4 5218 #### LAB [address] [address] Eze Mayes M.D. [id number] Hematocrit (Bld) [Volume fraction] 41.3 % Normal 41.0-53.0 [facility] Comment on above: Performed By: #### 4 5218 #### LAB [address] [address] Eze Mayes M.D. [id number] Hemoglobin (Bld) [Mass/Vol] 13.8 g/dL Normal 13.5-17.5 [facility] Comment on above: Performed By: #### 4 5218 #### LAB [address] [address] Eze Mayes M.D. [id number] MCH (RBC) [Entitic mass] 31.4 pg Normal 26.0-34.0 [facility] Comment on above: Performed By: #### 4 5218 #### LAB [address] [address] Eze Mayes M.D. [id number] MCV (RBC) [Entitic vol] 94.1 fL Normal 80.0-100.0 [facility] Comment on above: Performed By: #### 4 5218 #### LAB [address] [address] Eze Mayes M.D. [id number] MEAN CORPUSCULAR HEMOGLOBIN CONC 33.4 g/dL Normal 31.0-37.0 [facility] Comment on above: Performed By: #### 4 [id number] #### LAB [address] [address] Eze Mayes M.D. [id number] Platelet mean volume (Bld) [Entitic vol] 9.7 fL Normal 9.4-12.4 [facility] Comment on above: Performed By: #### 4 5218 #### LAB [address] [address] Eze Mayes M.D. [id number] Platelets (Bld) [#/Vol] 221 10*3/uL Normal 150-400 [facility] Comment on above: Performed By: #### 4 5218 #### LAB [address] [address] Eze Mayes M.D. [id number] RBC (Bld) [#/Vol] 4.39 10*6/uL Low 4.50-5.90 [facility] Comment on above: Performed By: #### 4 5218 #### LAB [address] [address] Eze Mayes M.D. [id number] WBC (Bld) [#/Vol] 10.84 10*3/uL Normal 4.50-11.00 [facility] Comment on above: Performed By: #### 4 5218 #### LAB [address] [address] Eze Mayes M.D. [id number] CHEM 10-23-2023 Anion gap [Moles/Vol] 14 mmol/L Normal 10-20 [facility] Comment on above: Order Comment: [facility] has implemented the eGFR calculation approach that does not have a coefficient for race that conforms to the NKF-ASN Task Force Recommendations. Performed By: #### 4 6953 #### LAB [address] [address] Eze Mayes M.D. [id number] Chloride [Moles/Vol] 105 mmol/L Normal 98-108 [facility] Comment on above: Order Comment: [facility] has implemented the eGFR calculation approach that does not have a coefficient for race that conforms to the NKF-ASN Task Force Recommendations. Performed By: #### 4 6953 #### LAB [address] [address] Eze Mayes M.D. [id number] Creatinine [Mass/Vol] 1.07 mg/dL Normal 0.50-1.30 [facility] Comment on above: Order Comment: [facility] has implemented the eGFR calculation approach that does not have a coefficient for race that conforms to the NKF-ASN Task Force Recommendations. Performed By: #### 4 6953 #### LAB [address] [address] Eze Mayes M.D. [id number] EGFR 92 mL/min/1.73 m2 Normal >=[address] [facility] Comment on above: Order Comment: [facility] has implemented the eGFR calculation approach that does not have a coefficient for race that conforms to the NKF-ASN Task Force Recommendations. Result Comment: Tatiana mated GFR was calculated using the 2020 CKD-EPI creatinine equation. Performed By: #### 4 6953 #### LAB [address] [address] Eze Mayes M.D. [id number] Glucose [Mass/Vol] 105 mg/dL High 65-99 [facility] Comment on above: Order Comment: [facility] has implemented the eGFR calculation approach that does not have a coefficient for race that conforms to the NKF-ASN Task Force Recommendations. Performed By: #### 4 6953 #### LAB [address] [address] Eze Mayes M.D. [id number] HCO3 (Bld) [Moles/Vol] 23 mmol/L Normal 21-32 [facility] Comment on above: Order Comment: [facility] has implemented the eGFR calculation approach that does not have a coefficient for race that conforms to the NKF-ASN Task Force Recommendations. Performed By: #### 4 6953 #### MH LAB [address] [address] Eze Mayes M.D. [id number] Potassium [Moles/Vol] 4.1 mmol/L Normal 3.5-5.1 [facility] Comment on above: Order Comment: [facility] has implemented the eGFR calculation approach that does not have a coefficient for race that conforms to the NKF-ASN Task Force Recommendations. Performed By: #### 4 6953 #### LAB [address] [place], [place] [address] Eze Mayes M.D. [id number] Sodium [Moles/Vol] 138 mmol/L Normal 135-145 [facility] Comment on above: Order Comment: [facility] has implemented the eGFR calculation approach that does not have a coefficient for race that conforms to the NKF-ASN Task Force Recommendations. Performed By: #### 4 6953 #### LAB [address] [place], [place] [address] Eze Mayes M.D. [id number] Urea nitrogen [Mass/Vol] 13 mg/dL Normal 8-25 [facility] Comment on above: Order Comment: [facility] has implemented the eGFR calculation approach that does not have a coefficient for race that conforms to the NKF-ASN Task Force Recommendations. Performed By: #### 4 6953 #### LAB [address] [place], [place] [address] Eze Mayes M.D. [id number] Urea nitrogen/Creatini ne [Mass ratio] 12.1 mg/mg Normal 10.0-20.0 [facility] Comment on above: Order Comment: [facility] has implemented the eGFR calculation approach that does not have a coefficient for race that conforms to the NKF-ASN Task Force Recommendations. Performed By: #### 4 6953 #### LAB [address] [place], [place] [address] Eze Mayes M.D. [id number] CT ABDOMEN PELVIS WITH CONTR Thony 10-23-2023 CT ABDOMEN PELVIS WITH CONTRAST EXAMINATION: CT ABDOMEN PELVIS WITH CONTRAST ADDITIONAL CLINICAL INFORMATION: abdominal pain perforated diverticulitis COMPARISON: 10/21/2023. 09/12/2012. TECHNIQUE: Enhanced helical acquisition was obtained from the lung bases through the pubic symphysis following administration of bolus intravenous contrast (75 mL Isovue- 370). Dose reduction techniques were achieved by using automated exposure control and/or adjustment of mA and/or kV according to patient size and/or use of iterative reconstruction technique. FINDINGS: ABDOMINAL CT: Minimal bibasilar dependent atelectasis. The pleural spaces are clear. Mild hepatic steatosis. Unremarkable gallbladder. No significant biliary ductal dilatation. The spleen, pancreas, adrenal glands and the kidneys are unremarkable. No enlarged lymph nodes within the abdomen. Small fat containing umbilical hernia measuring 1.4 cm transverse diameter. PELVIC CT: Normal appendix. Multiple colonic diverticula. Continue inflammation adjacent to the distal sigmoid colon, overall increased as compared to 10/21/2023 consistent with acute diverticulitis. Numerous colonic diverticula are present. Posterior and inferior to the inflamed segment of colon there is a 2.6 cm gas and fluid collection, which has increased as compared to the prior examination consistent with developing abscess. Small volume of adjacent ascites within the rectovesical space of the pelvis. Diffuse urinary bladder wall thickening. No enlarged lymph nodes within the pelvis. IMPRESSION: 1. Increasing inflammation surrounding the distal sigmoid colon consistent with progression of the patient's acute diverticulitis. Interval increased size of a small gas and fluid collection located posterior and inferior to the inflamed segment of colon within the pelvis measuring 2.6 cm consistent with a developing abscess. Small volume of adjacent ascites within the rectovesical space of the pelvis. 2. Diffuse urinary bladder wall thickening. This may be reactive thickening. Recommend correlation with urinalysis to exclude cystitis. 3. Hepatic steatosis. [facility]/ Workstation ID: [id number] Dictated by: KEMI GREEN on ThuOct 23, 2023 1:52:15 PM EDT Transcribed by: ROXI KIRBY on ThuOct 23, 2023 1:59:51 PM EDT Finalized by: KEMI GREEN on ThuOct 23, 2023 2:02:08 PM EDT Normal [facility] Comment on above: Order Comment: [facility] has implemented the eGFR calculation approach that does not have a coefficient for race that conforms to the NKF-ASN Task Force Recommendations. POINT OF CARE ULTRASOUND NO CHARGEon 10-23-2023 POINT OF CARE ULTRASOUND NO CHARGE These images are not reportable by radiology and will not be interpreted by Radiologists. Normal [facility] BASIC METABOLIC PANELon - Anion gap [Moles/Vol] 15 mmol/L Normal 10-20 [facility] Comment on above: Order Comment: [facility] has implemented the eGFR calculation approach that does not have a coefficient for race that conforms to the NKF-ASN Task Force Recommendations. Performed By: #### 4 [id number] #### LAB [address] [address] Eze Mayes M.D. [id number] Calcium [Mass/Vol] 8.9 mg/dL Normal 8.4-10.2 [facility] Comment on above: Order Comment: [facility] has implemented the eGFR calculation approach that does not have a coefficient for race that conforms to the NKF-ASN Task Force Recommendations. Performed By: #### 4 [id number] #### LAB [address] [address] Eze Mayes M.D. [id number] Chloride [Moles/Vol] 103 mmol/L Normal 98-108 [facility] Comment on above: Order Comment: [facility] has implemented the eGFR calculation approach that does not have a coefficient for race that conforms to the NKF-ASN Task Force Recommendations. Performed By: #### 4 [id number] #### LAB [address] [address] Eze Mayes M.D. [id number] Creatinine [Mass/Vol] 1.03 mg/dL Normal 0.50-1.30 [facility] Comment on above: Order Comment: [facility] has implemented the eGFR calculation approach that does not have a coefficient for race that conforms to the NKF-ASN Task Force Recommendations. Performed By: #### 4 [id number] #### LAB [address] [address] Eze Mayes M.D. [id number] EGFR 96 mL/min/1.73 m2 Normal >=[address] [facility] Comment on above: Order Comment: [facility] has implemented the eGFR calculation approach that does not have a coefficient for race that conforms to the NKF-ASN Task Force Recommendations. Result Comment: Tatiana mated GFR was calculated using the 2020 CKD-EPI creatinine equation. Performed By: #### 4 [id number] #### LAB [address] [address] Eze Mayes M.D. [id number] Glucose [Mass/Vol] 92 mg/dL Normal 65-99 [facility] Comment on above: Order Comment: [facility] has implemented the eGFR calculation approach that does not have a coefficient for race that conforms to the NKF-ASN Task Force Recommendations. Performed By: #### 4 [id number] #### LAB [address] [address] Eze Mayes M.D. [id number] HCO3 (Bld) [Moles/Vol] 22 mmol/L Normal 21-32 [facility] Comment on above: Order Comment: [facility] has implemented the eGFR calculation approach that does not have a coefficient for race that conforms to the NKF-ASN Task Force Recommendations. Performed By: #### 4 [id number] #### LAB [address] [address] Eze Mayes M.D. [id number] Potassium [Moles/Vol] 4.0 mmol/L Normal 3.5-5.1 [facility] Comment on above: Order Comment: [facility] has implemented the eGFR calculation approach that does not have a coefficient for race that conforms to the NKF-ASN Task Force Recommendations. Performed By: #### 4 [id number] #### LAB [address] [address] Eze Mayes M.D. [id number] Sodium [Moles/Vol] 136 mmol/L Normal 135-145 [facility] Comment on above: Order Comment: [facility] has implemented the eGFR calculation approach that does not have a coefficient for race that conforms to the NKF-ASN Task Force Recommendations. Performed By: #### 4 [id number] #### LAB [address] [address] Eze Mayes M.D. [id number] Urea nitrogen [Mass/Vol] 15 mg/dL Normal 8-25 [facility] Comment on above: Order Comment: [facility] has implemented the eGFR calculation approach that does not have a coefficient for race that conforms to the NKF-ASN Task Force Recommendations. Performed By: #### 4 5218 #### LAB [address] [address] Eze Mayes M.D. [id number] Urea nitrogen/Creatini ne [Mass ratio] 14.6 mg/mg Normal 10.0-20.0 [facility] Comment on above: Order Comment: [facility] has implemented the eGFR calculation approach that does not have a coefficient for race that conforms to the NKF-ASN Task Force Recommendations. Performed By: #### 4 5218 #### LAB [address] [address] Eze Mayes M.D. [id number] CBCon 10-22-2023 AUTO NRBC 0.0 % Normal [facility] Comment on above: Performed By: #### 4 5218 #### LAB [address] [address] Eze Mayes M.D. [id number] AUTO NRBC ABS COUNT 0.00 K/mcL Normal 0.00-0.00 [facility] Comment on above: Performed By: #### 4 5218 #### LAB [address] [address] Eze Mayes M.D. [id number] Erythrocyte distribution width (RBC) [Ratio] 13.8 % Normal 11.6-14.8 [facility] Comment on above: Performed By: #### 4 5218 #### LAB [address] [address] Eze Mayes M.D. [id number] Hematocrit (Bld) [Volume fraction] 42.4 % Normal 41.0-53.0 [facility] Comment on above: Performed By: #### 4 5218 #### LAB [address] [address] Eze Mayes M.D. [id number] Hemoglobin (Bld) [Mass/Vol] 14.2 g/dL Normal 13.5-17.5 [facility] Comment on above: Performed By: #### 4 5218 #### LAB [address] [address] Eze Mayes M.D. [id number] MCH (RBC) [Entitic mass] 31.6 pg Normal 26.0-34.0 [facility] Comment on above: Performed By: #### 4 5218 #### LAB [address] [address] Eze Mayes M.D. [id number] MCV (RBC) [Entitic vol] 94.2 fL Normal 80.0-100.0 [facility] Comment on above: Performed By: #### 4 5218 #### LAB [address] [address] Eze Mayes M.D. [id number] MEAN CORPUSCULAR HEMOGLOBIN CONC 33.5 g/dL Normal 31.0-37.0 [facility] Comment on above: Performed By: #### 4 5218 #### LAB [address] [address] Eze Mayes M.D. [id number] Platelet mean volume (Bld) [Entitic vol] 9.6 fL Normal 9.4-12.4 [facility] Comment on above: Performed By: #### 4 5218 #### LAB [address] [address] Eze Mayes M.D. [id number] Platelets (Bld) [#/Vol] 207 10*3/uL Normal 150-400 [facility] Comment on above: Performed By: #### 4 5218 #### MH LAB [address] [address] Eze Mayes M.D. [id number] RBC (Bld) [#/Vol] 4.50 10*6/uL Normal 4.50-5.90 [facility] Comment on above: Performed By: #### 4 5218 #### MH LAB [address] [address] Eze Mayes M.D. [id number] WBC (Bld) [#/Vol] 12.98 10*3/uL High 4.50-11.00 [facility] Comment on above: Performed By: #### 4 5218 #### LAB [address] [address] Eze Mayes M.D. [id number] CBC WITH AUTO DIFFERENTIALon 10-21-2023 AUTO NRBC 0.0 % [facility] Comment on above: Performed By: #### 4 5218 #### LAB [address] [address] Eze Mayes M.D. [id number] AUTO NRBC ABS COUNT 0.00 K/mcL Normal 0.00-0.00 [facility] Comment on above: Performed By: #### 4 5218 #### LAB [address] [address] Eze Mayes M.D. [id number] BASOPHILS ABSOLUTE COUNT 0.07 K/mcL Normal 0.00-0.30 [facility] Comment on above: Performed By: #### 4 5218 #### LAB [address] [address] Eze Mayes M.D. [id number] Basophils/100 WBC (Bld) 0.5 % [facility] Comment on above: Performed By: #### 4 5218 #### LAB [address] [address] Eze Mayes M.D. [id number] Eosinophils (Bld) [#/Vol] 0.15 10*3/uL Normal 0.00-0.50 [facility] Comment on above: Performed By: #### 4 5218 #### LAB [address] [address] Eze Mayes M.D. [id number] Eosinophils/100 WBC (Bld) 1.1 % [facility] Comment on above: Performed By: #### 4 5218 #### LAB [address] [address] Eze Mayes M.D. [id number] Erythrocyte distribution width (RBC) [Ratio] 14.0 % Normal 11.6-14.8 [facility] Comment on above: Performed By: #### 4 5218 #### LAB [address] [address] Eze Mayes M.D. [id number] Hematocrit (Bld) [Volume fraction] 42.2 % Normal 41.0-53.0 [facility] Comment on above: Performed By: #### 4 5218 #### LAB [address] [address] Eze Mayes M.D. [id number] Hemoglobin (Bld) [Mass/Vol] 14.2 g/dL Normal 13.5-17.5 [facility] Comment on above: Performed By: #### 4 5218 #### LAB [address] [address] Eze Mayes M.D. [id number] IG ABSOLUTE 0.07 K/mcL Normal 0.00-0.30 [facility] Comment on above: Performed By: #### 4 5218 #### LAB [address] [address] Eze Mayes M.D. [id number] IG PERCENT 0.50 % Normal [facility] Comment on above: Result Comment: The IG parameter is the percentage of metamyelocytes, myelocytes and promyelocytes. An immature granulocyte count (IG) of 1% or more suggests the possibility of infection, an IG count of 3% is very likely related to an infection. Performed By: #### 4 5218 #### LAB [address] [address] Eze Mayes M.D. [id number] Lymphocytes (Bld) [#/Vol] 2.14 10*3/uL Normal 0.90-4.00 [facility] Comment on above: Performed By: #### 4 5218 #### LAB [address] [address] Eze Mayes M.D. [id number] Lymphocytes/100 WBC (Bld) 16.2 % [facility] Comment on above: Performed By: #### 4 5218 #### LAB [address] [place] [address] Eze Mayes M.D. [id number] MCH (RBC) [Entitic mass] 31.6 pg Normal 26.0-34.0 [facility] Comment on above: Performed By: #### 4 5218 #### LAB [address] [address] Eze Mayes M.D. [id number] MCV (RBC) [Entitic vol] 94.0 fL Normal 80.0-100.0 [facility] Comment on above: Performed By: #### 4 5218 #### MH LAB [address] [address] Eze Mayes M.D. [id number] MEAN CORPUSCULAR HEMOGLOBIN CONC 33.6 g/dL Normal 31.0-37.0 [facility] Comment on above: Performed By: #### 4 5218 #### LAB [address] [address] Eze Mayes M.D. [id number] Monocytes (Bld) [#/Vol] 1.10 10*3/uL High 0.30-0.90 [facility] Comment on above: Performed By: #### 4 5218 #### MH LAB [address] [address] Eze Mayes M.D. [id number] Monocytes/100 WBC (Bld) 8.4 % Normal [facility] Comment on above: Performed By: #### 4 5218 #### LAB [address] [address] Eze Mayes M.D. [id number] NEUTROPHILS ABSOLUTE COUNT 9.64 K/mcL High 1.70-7.00 [facility] Comment on above: Performed By: #### 4 5218 #### MH LAB [address] [address] Eze Mayes M.D. [id number] Neutrophils/100 WBC (Bld) 73.3 % Normal [facility] Comment on above: Performed By: #### 4 5218 #### MH LAB [address] [address] Eze Mayes M.D. [id number] Platelet mean volume (Bld) [Entitic vol] 10.0 fL Normal 9.4-12.4 [facility] Comment on above: Performed By: #### 4 5218 #### LAB [address] [place], [place] [address] Eze Mayes M.D. [id number] Platelets (Bld) [#/Vol] 235 10*3/uL Normal 150-400 [facility] Comment on above: Performed By: #### 4 5218 #### LAB [address] [address] Eze Mayes M.D. [id number] RBC (Bld) [#/Vol] 4.49 10*6/uL Low 4.50-5.90 [facility] Comment on above: Performed By: #### 4 5218 #### LAB [address] [address] Eze Mayes M.D. [id number] WBC (Bld) [#/Vol] 13.17 10*3/uL High 4.50-11.00 [facility] Comment on above: Performed By: #### 4 [id number] #### LAB [address] [id number] Eze Mayes M.D. [id number] CHLAMYDIA/GONORRHOEAE AMPLIF IED RNAon 10-21-2023 CHLAMYDIA/GONORRH OEAE AMPLIFIED RNA CHLAMYDIA TRACHOMATIS AMPLIFIED RNA NEGATIVE NEISSERIA GONORRHOEAE AMPLIFIED RNA NEGATIVE Normal Negative [facility] Comment on above: Performed By: #### L [id number] #### [facility] [address] [place] [address] Giovani Coleman M[address] [id number] CT KIDNEY STONEon 10-21-2023 CT KIDNEY STONE EXAMINATION: CT KIDNEY STONE HISTORY: ORDERING SYSTEM PROVIDED HISTORY: Abdominal/flank pain, stone suspected, TECHNOLOGIST PROVIDED HISTORY: Illness/Other Reason for exam: sudden onset of abd pain Encounter Type: Initial Additional signs and symptoms: nausea ORDERING SYSTEM PROVIDED DIAGNOSIS CODES: COMPARISON: 09/12/2012 CT chest, abdomen and pelvis. TECHNIQUE: CT examination of the abdomen and pelvis without IV contrast. Coronal and sagittal reformations were performed. Renal stone protocol. Portions of the upper abdomen solid organs are not completely included in the imaging field of view. Dose reduction techniques were achieved by using automated exposure control and/or adjustment of mA and/or kV according to patient size and/or use of iterative reconstruction technique. FINDINGS: LOWER CHEST: Normal. ABDOMEN: Liver: Normal. Bile ducts: Normal caliber. Gallbladder: No calcified gallstones. Normal caliber wall. Pancreas: Normal. Spleen: Normal. Adrenals: Normal. Kidneys: No hydronephrosis or nephrolithiasis. PELVIS: Reproductive organs: No pelvic masses. Probable metallic piercing in the penile region on remedial masseur radiograph. Ureters: Normal. Bladder: Focal thickening of the posterior margin of the bladder. OTHER ABDOMEN AND PELVIS: Bowel: No bowel obstruction. No appendicitis. Diverticulosis of the descending and sigmoid colon. Superimposed pericolonic fat stranding of the mid and distal sigmoid colon, compatible with acute diverticulitis. Small focus of extraluminal gas seen just below the sigmoid colon (series 4, image 109), compatible with contained perforation. No free intraperitoneal air. No definite organized fluid collection. Peritoneum: Small amount of free fluid in the pelvis. Vessels: Normal. Lymph nodes: No enlarged lymph nodes. Abdominal wall: Small fat-containing umbilical hernia. Osseous structures: No destructive lesions. IMPRESSION: Acute sigmoid diverticulitis with contained perforation. Small focus of extraluminal gas seen just below the sigmoid. No definite organized fluid collection. No free intraperitoneal air. Small amount of pelvic ascites. Probable secondary inflammation of the posterior bladder. No obstructive uropathy or urolithiasis. Critical results were called by Dr.Shanthan Rizo to Dr.ANUP ROBE AGUSTIN on 10/21/2023 at 11:54. ST/[employer] Workstation ID: [id number] Dictated by: JOHN RIZO on ThuOct 21, 2023 11:54:59 AM EDT Transcribed by: HERACLIO ONEIL on ThuOct 21, 2023 12:09:44 PM EDT Finalized by: JOHN RIZO on ThuOct 21, 2023 10:19:[address] [facility] Comment on above: Order Comment: Injur y/Trauma or Illness?:Illness/Other How long have you had these symptoms (acute/chronic)?:Acute Reason for exam?:sudden onset of abd pain Type of Exam?:Initial Additional signs and symptoms?:nausea ED Prov Noteon 10-21-2023 ED Prov Note [facility] ED KRISTINE Note: NAME: Reid Jain 38 y.o. CSN: [id number] PCP: Barbara Contreras MD History: Chief Complaint: Abdominal Pain and Diverticulitis HPI: The history was obtained from the patient. Reid is a 38 y.o. male who presents with a chief complaint of Abdominal Pain and Diverticulitis. Patient presented to the emergency department today as a transfer from the [facility] emergency department for concern for diverticulitis with contained perforation. He is here for surgery evaluation. Symptoms started yesterday in the lower part of the abdomen with nausea. He has received Cipro and Flagyl IV as well as nausea medicine and Dilaudid prior to arrival. On arrival, he is awake, alert and oriented with complaints of increased pain to the lower abdomen. Plan to give him another dose of Dilaudid also complains of nausea so given Zofran. Consulted surgery on patient arrival. PMHx: Past Medical History: Diagnosis Date Depression PMSx: Past Surgical History: Procedure Laterality Date HERNIA REPAIR FAM. Hx: History reviewed. No pertinent family history. SOC. Hx: Social History Socioeconomic History Marital status: Single Tobacco Use Smoking status: Every Day Current packs/day: 1.00 Types: Cigarettes Smokeless tobacco: Current Types: Chew Vaping Use Vaping status: Some Days Substance and Sexual Activity Alcohol use: Yes Drug use: Never MEDs: Previous Medications Medication Sig cetirizine (ZYRTEC) 10 MG tablet Take 1 (one) tablet (10 mg total) by mouth daily . montelukast (SINGULAIR) 10 mg tablet Take 1 (one) tablet (10 mg total) by mouth nightly . omeprazole (PRILOSEC OTC) 20 MG tablet Take 1 (one) tablet (20 mg total) by mouth daily . ALL: Allergies Allergen Reactions Augmentin [Amoxicillin-Pot Clavulanate] Keflex [Cephalexin] ROS: Positives and pertinent negatives as per HPI. All other systems were reviewed and are negative. Physical Exam: Patient Vitals for the past 24 hrs: BP Temp Pulse Resp SpO2 Height Weight 10/21/23 1624 -- -- -- (!) 20 -- -- -- 10/21/23 1614 (!) 156/78 98.8 degrees F (37.1 degrees C) 70 -- 98 % -- -- 10/21/23 1613 -- -- -- (!) 22 -- 5' 11 113.4 kg (250 lb) Physical Exam Vitals and nursing note reviewed. Constitutional: General: He is not in acute distress. Appearance: Normal appearance. He is well-developed. He is not toxic-appearing. HENT: Head: Normocephalic and atraumatic. Nose: Nose normal. Eyes: General: No scleral icterus. Conjunctiva/sclera: Conjunctivae normal. Cardiovascular: Rate and Rhythm: Normal rate and regular rhythm. Heart sounds: Normal heart sounds. No murmur heard. Musculoskeletal: Right lower leg: No swelling. No edema. Left lower leg: No swelling. No edema. Pulmonary: Effort: Pulmonary effort is normal. No respiratory distress. Breath sounds: Normal breath sounds and air entry. Abdominal: General: Abdomen is flat. There is no distension. Tenderness: There is abdominal tenderness in the suprapubic area and left lower quadrant. Skin: General: Skin is warm and dry. Findings: No rash. Neurological: General: No focal deficit present. Mental Status: He is alert and oriented to person, place, and time. Psychiatric: Behavior: Behavior normal. Behavior is cooperative. Laboratory & Radiological Imaging (if done): Labs Reviewed CBC WITH AUTO DIFFERENTIAL - Abnormal; Notable for the following components: Result Value WBC 13.17 (*) RBC 4.49 (*) Neutrophils Abs 9.64 (*) Monocytes Abs 1.10 (*) All other components within normal limits CBC AND DIFFERENTIAL Narrative: The following orders were created for panel order CBC and Differential. Procedure Abnormality Status --------- ------ CBC Auto Differential[[id number]] Abnormal Final result Please view results for these tests on the individual orders. LACTIC ACID, PLASMA No orders to display MDM: Differential : Diverticulitis Medical Decision Making Problems Addressed: Diverticulitis of large intestine with perforation without abscess or bleeding: acute illness or injury Amount and/or Complexity of Data Reviewed Labs: ordered. Decision-making details documented in ED Course. Radiology: ordered. Decision-making details documented in ED Course. ED Course as of 10/21/231723Oct 21, 20231723 WBC(!): 13.17 [RH] 1723 Hemoglobin: 14.2 [RH] 1724 Hematocrit: 42.2 [RH] 1724 Patient will be admitted to the general surgery team. [RH] ED Course User Index [RH] Doris Canas CNP Clinical Impression: 1. Diverticulitis of large intestine with perforation without abscess or bleeding Disposition: Patient is being admitted. Doris Canas CNP ED Advanced Practice Provider [facility] Emergency Department (Please note that portions of this note have been completed with a voice recogn (more content not included)... Normal [facility] ED Prov Note ED PROVIDER NOTE [facility] EMERGENCY DEPARTMENT NAME: Reid Jain AGE: 38 y.o. : 1985 VISIT DATE: 10/21/2023 CSN: [id number] PCP: Barbara Contreras MD Chief Complaint Patient presents with - Abdominal Pain 38-year-old male presents with abdominal pain that started around 4 PM yesterday, has been progressively getting worse. Pain is moderately intense, diffuse, sharp and stabbing, associated with nausea, no diarrhea as such. He thinks that it may have been started with eating a sandwich out of the vending machine at work, but feels that it is more severe than that. History provided by: Patient Abdominal Pain Pain quality: aching, cramping, sharp and stabbing Onset quality: Gradual Pain severity: Moderate Timing: Intermittent Progression: Waxing and waning Context: suspicious food intake Context: not sick contacts Relieved by: Nothing tried Worsened by: Nothing Associated symptoms: nausea Associated symptoms: no belching, no chest pain and no constipation Past Medical History: Diagnosis Date - Depression Past Surgical History: Procedure Laterality Date - HERNIA REPAIR History reviewed. No pertinent family history. Social History Socioeconomic History - Marital status: Single Tobacco Use - Smoking status: Every Day Current packs/day: 1.00 Types: Cigarettes - Smokeless tobacco: Current Types: Chew Vaping Use - Vaping status: Some Days Substance and Sexual Activity - Alcohol use: Yes - Drug use: Never Previous Medications Medication Sig - cetirizine (ZYRTEC) 10 MG tablet Take 1 (one) tablet (10 mg total) by mouth daily . - montelukast (SINGULAIR) 10 mg tablet Take 1 (one) tablet (10 mg total) by mouth nightly . - omeprazole (PRILOSEC OTC) 20 MG tablet Take 1 (one) tablet (20 mg total) by mouth daily . Allergies Allergen Reactions - Augmentin [Amoxicillin-Pot Clavulanate] - Keflex [Cephalexin] Review of Systems Cardiovascular: Negative for chest pain. Gastrointestinal: Positive for abdominal pain and nausea. Negative for constipation. All other systems reviewed and are negative. Patient Vitals for the past 24 hrs: BP Temp Temp src Pulse Resp SpO2 Height Weight 10/21/23 1043 (!) 131/108 97.7 degrees F (36.5 degrees C) Temporal 92 16 97 % 5' 11 113.4 kg (250 lb) Physical Exam Vitals and nursing note reviewed. HENT: Head: Normocephalic and atraumatic. Eyes: Extraocular Movements: Extraocular movements intact. Conjunctiva/sclera: Conjunctivae normal. Abdominal: General: Abdomen is flat. There is no distension. Palpations: Abdomen is soft. Tenderness: There is abdominal tenderness. There is no rebound. Skin: General: Skin is warm and dry. Neurological: Mental Status: He is alert. Psychiatric: Mood and Affect: Mood normal. Behavior: Behavior normal. . Laboratory & Radiographic Imaging (if done): No results found for this visit on 10/21/23. CT Kidney Stone (Results Pending) Procedures Medical Decision Making 38-year-old male presents with abdominal pain starting around 4 PM yesterday. CBC, BMP, liver function panel, and CT scan of the abdomen and pelvis were ordered. He received IV normal saline bolus, Zofran, and Toradol initially. POC CBC shows a white count of 13.74 hemoglobin 15.9 hematocrit 46.7 platelet count of 264. This slight left shift noted on the differential. Discussed that his CT abdomen pelvis findings with the radiologist who told me that patient has acute diverticulitis with a contained perforation. The findings were discussed with the patient. Recommending hospitalization. IV Cipro and metronidazole ordered. Additional pain medication of Dilaudid given. Amount and/or Complexity of Data Reviewed Labs: ordered. Decision-making details documented in ED Course. Radiology: ordered. Decision-making details documented in ED Course. The patient has been informed that they may have pre-hypertension or hypertension based on a blood pressure reading in the Emergency Department. I recommend that the patient call the primary care provider listed on their discharge instructions or a physician of their choice as soon as possible to arrange follow-up in the next 4 weeks for further evaluation of possible pre-hypertension or hypertension. . Clinical Impression: No diagnosis found. ED Disposition None Follow-up Information Follow-up information has not been specified. Contact information for after-discharge care Follow-up information has not been specified. Junaid Agustin, DO 10/21/23 1612 AUTHENTICATED BY JUNAID AGUSTIN, ON 10/21/2023 16:12:07 [facility] H AND Prabhakar 10-21-2023 H AND P Subjective Patient ID: Reid Jain is a 38 y.o. male. Abdominal Pain Associated symptoms include nausea. Pertinent negatives include no arthralgias, constipation, diarrhea, fever, frequency, hematuria or vomiting. 38 year old male presented to OSH with abdominal pain found to have diverticulitis and possible perforation/contained abscess. The patient reports he developed abdominal pain yesterday afternoon after eating. The pain progressively worsened and developed in to diffuse abdominal tenderness. He did have some chills at home as well as nausea. He has no history of diverticulitis. Reports he thought he may have a kidney stone though he was not having urinary symptoms. Went to [facility] for evaluation and was found to have diverticulitis. As such he was transferred for further evaluation and management. Past Medical History: Diagnosis Date Depression Past Surgical History: Procedure Laterality Date HERNIA REPAIR Current Facility-Administered Medications Medication Dose Route Frequency Provider Last Rate Last Admin nicotine (NICODERM CQ) 21 mg/24 hr 1 patch 1 patch Transdermal Daily Sruthi Arnold CNP 1 patch at 10/21/23 173 PLASMALYTE-A solution 75 mL/hr Intravenous Continuous Sruthi Arnold CNP 75 mL/hr at 10/21/23 1732 75 mL/hr at 10/21/23 173 Current Outpatient Medications Medication Sig Dispense Refill cetirizine (ZYRTEC) 10 MG tablet Take 1 (one) tablet (10 mg total) by mouth daily . montelukast (SINGULAIR) 10 mg tablet Take 1 (one) tablet (10 mg total) by mouth nightly . omeprazole (PRILOSEC OTC) 20 MG tablet Take 1 (one) tablet (20 mg total) by mouth daily . Allergies: Augmentin [amoxicillin-pot clavulanate] and Keflex [cephalexin] Social History Socioeconomic History Marital status: Single Tobacco Use Smoking status: Every Day Current packs/day: 1.00 Types: Cigarettes Smokeless tobacco: Current Types: Chew Vaping Use Vaping status: Some Days Substance and Sexual Activity Alcohol use: Yes Drug use: Never History reviewed. No pertinent family history. Review of Systems Constitutional: Negative for activity change, appetite change, chills, fatigue, fever and unexpected weight change. HENT: Negative for hearing loss, nosebleeds and trouble swallowing. Eyes: Negative for visual disturbance. Respiratory: Negative for cough, shortness of breath, wheezing and stridor. Cardiovascular: Negative for chest pain and leg swelling. Gastrointestinal: Positive for abdominal pain and nausea. Negative for abdominal distention, blood in stool, constipation, diarrhea and vomiting. Endocrine: Negative for cold intolerance and heat intolerance. Genitourinary: Negative for difficulty urinating, frequency, hematuria and urgency. Musculoskeletal: Negative for arthralgias. Skin: Negative for rash and wound. Allergic/Immunologic: Negative for environmental allergies and food allergies. Neurological: Negative for seizures, syncope, weakness and numbness. Hematological: Negative for adenopathy. Does not bruise/bleed easily. Psychiatric/Behavioral: Negative for agitation and dysphoric mood. Objective Physical Exam Vitals reviewed. Constitutional: General: He is not in acute distress. Appearance: Normal appearance. He is well-developed. He is not diaphoretic. HENT: Head: Normocephalic and atraumatic. Right Ear: External ear normal. Left Ear: External ear normal. Nose: Nose normal. Eyes: Pupils: Pupils are equal, round, and reactive to light. Neck: Thyroid: No thyromegaly. Vascular: No JVD. Trachea: No tracheal deviation. Cardiovascular: Rate and Rhythm: Normal rate and regular rhythm. Heart sounds: Normal heart sounds. Pulmonary: Effort: Pulmonary effort is normal. No respiratory distress. Breath sounds: Normal breath sounds. Abdominal: General: Bowel sounds are normal. There is no distension. Palpations: Abdomen is soft. There is no mass. Tenderness: There is abdominal tenderness (diffuse, greatest in lower abdomen). There is no guarding or rebound. Musculoskeletal: General: Normal range of motion. Cervical back: Normal range of motion. Skin: General: Skin is warm and dry. Neurological: General: No focal deficit present. Mental Status: He is alert. Mental status is at baseline. Cranial Nerves: No cranial nerve deficit. Psychiatric: Behavior: Behavior normal. Assessment/Plan: 38 year old male with diverticulitis and possible microperforation - admit, bowel rest, IV antibiotics - am labs AUTHENTICATED BY THADDEUS WILSON, ON 10/21/2023 19:49:36 Normal [facility] LACTIC ACID, PLASMAon 2023 LACTIC ACID, PLASMA 0.7 mmol/L Normal 0.6-2.0 [facility] Comment on above: Performed By: #### [id number] #### LAB [address] [place], [place] [address] Eze Mayes M.D. [id number] POC BASIC METABOLIC PANEL - [facility] 10-21-2023 Chloride [Moles/Vol] 107 mmol/L Normal 98-108 [facility] Comment on above: Order Comment: [facility] has implemented the eGFR calculation approach that does not have a coefficient for race that conforms to the NKF-ASN Task Force Recommendations. CO2 [Moles/Vol] 24 mmol/L Normal 21-32 [facility] Comment on above: Order Comment: [facility] has implemented the eGFR calculation approach that does not have a coefficient for race that conforms to the NKF-ASN Task Force Recommendations. Creatinine [Mass/Vol] 1.03 mg/dL Normal 0.50-1.30 [facility] Comment on above: Order Comment: [facility] has implemented the eGFR calculation approach that does not have a coefficient for race that conforms to the NKF-ASN Task Force Recommendations. Glucose [Mass/Vol] 102 mg/dL High 65-99 [facility] Comment on above: Order Comment: [facility] has implemented the eGFR calculation approach that does not have a coefficient for race that conforms to the NKF-ASN Task Force Recommendations. POC GFR 96 mL/min/1.73 m2 Normal >=60 [facility] Comment on above: Order Comment: [facility] has implemented the eGFR calculation approach that does not have a coefficient for race that conforms to the NKF-ASN Task Force Recommendations. Result Comment: Tatiana mated GFR was calculated using the 2020 CKD-EPI creatinine equation. POC IONIZED CALCIUM 4.9 mg/dL Normal 4.5-5.3 [facility] Comment on above: Order Comment: [facility] has implemented the eGFR calculation approach that does not have a coefficient for race that conforms to the NKF-ASN Task Force Recommendations. Potassium [Moles/Vol] 4.1 mmol/L Normal 3.5-5.1 [facility] Comment on above: Order Comment: [facility] has implemented the eGFR calculation approach that does not have a coefficient for race that conforms to the NKF-ASN Task Force Recommendations. Sodium [Moles/Vol] 143 mmol/L Normal 135-145 [facility] Comment on above: Order Comment: [facility] has implemented the eGFR calculation approach that does not have a coefficient for race that conforms to the NKF-ASN Task Force Recommendations. Urea nitrogen [Mass/Vol] 11 mg/dL Normal 8-25 [facility] Comment on above: Order Comment: [facility] has implemented the eGFR calculation approach that does not have a coefficient for race that conforms to the NKF-ASN Task Force Recommendations. Chloride [Moles/Vol] 108 mmol/L Normal 98-108 [facility] Comment on above: Order Comment: [facility] has implemented the eGFR calculation approach that does not have a coefficient for race that conforms to the NKF-ASN Task Force Recommendations. CO2 [Moles/Vol] 24 mmol/L Normal 21-32 [facility] Comment on above: Order Comment: [facility] has implemented the eGFR calculation approach that does not have a coefficient for race that conforms to the NKF-ASN Task Force Recommendations. Glucose [Mass/Vol] 97 mg/dL Normal 65-99 [facility] Comment on above: Order Comment: [facility] has implemented the eGFR calculation approach that does not have a coefficient for race that conforms to the NKF-ASN Task Force Recommendations. POC CREATININE (EPOC) Normal [facility] Comment on above: Order Comment: [facility] has implemented the eGFR calculation approach that does not have a coefficient for race that conforms to the NKF-ASN Task Force Recommendations. Result Comment: Resu lt unable to be determined. POC GFR Normal [facility] Comment on above: Order Comment: [facility] has implemented the eGFR calculation approach that does not have a coefficient for race that conforms to the NKF-ASN Task Force Recommendations. Result Comment: Tatiana mated GFR was calculated using the 2020 CKD-EPI creatinine equation. POC IONIZED CALCIUM 4.9 mg/dL Normal 4.5-5.3 [facility] Comment on above: Order Comment: [facility] has implemented the eGFR calculation approach that does not have a coefficient for race that conforms to the NKF-ASN Task Force Recommendations. Potassium [Moles/Vol] 4.0 mmol/L Normal 3.5-5.1 [facility] Comment on above: Order Comment: [facility] has implemented the eGFR calculation approach that does not have a coefficient for race that conforms to the NKF-ASN Task Force Recommendations. Sodium [Moles/Vol] 142 mmol/L Normal 135-145 [facility] Comment on above: Order Comment: [facility] has implemented the eGFR calculation approach that does not have a coefficient for race that conforms to the NKF-ASN Task Force Recommendations. Urea nitrogen [Mass/Vol] 11 mg/dL Normal 8-25 [facility] Comment on above: Order Comment: [facility] has implemented the eGFR calculation approach that does not have a coefficient for race that conforms to the NKF-ASN Task Force Recommendations. [facility] Albumin [Mass/Vol] 4.1 g/dL Normal 3.2-5.2 [facility] ALP [Catalytic activity/Vol] 67 U/L Normal 40-140 [facility] ALT [Catalytic activity/Vol] 29 U/L Normal 0-40 [facility] Amylase [Catalytic activity/Vol] 53 U/L Normal 25-115 [facility] Amylase [Catalytic activity/Vol] 40 U/L Normal 11-51 [facility] AST [Catalytic activity/Vol] 27 U/L Normal 0-45 [facility] Bilirubin [Mass/Vol] 3.4 mg/dL High 0.0-1.3 [facility] Protein [Mass/Vol] 7.7 g/dL Normal 6.0-8.0 [facility] POC URINALYSIS DIPSTICK,AUTO - RALSon 10-21-2023 POC BILIRUBIN, URINE Negative Normal Negative [facility] POC BLOOD, URINE Negative Normal Negative [facility] POC GLUCOSE, URINE Negative Normal Negative [facility] POC KETONES, URINE Negative Normal Negative [facility] POC LEUKOCYTE ESTERASE, URINE Negative Normal Negative [facility] POC NITRITE, URINE Negative Normal Negative [facility] POC PH, URINE 7.0 Normal 5.0-7.0 [facility] POC PROTEIN, URINE Negative Normal Negative [facility] POC SPECIFIC GRAVITY 1.020 Normal 1.005-1.025 [facility] POC UROBILINOGEN 0.2 mg/dL Normal < 2.0 [facility] TRICHOMONAS VAGINALIS AMPLIF IED RNAon 10-21-2023 TRICHOMONAS VAGINALIS AMPLIFIED RNA Negative Normal Negative [facility] Comment on above: Performed By: #### L [id number] #### [facility] [address] [place] [address] Giovani Coleman M.D. [id number] POINT OF CARE ULTRASOUND NO CHARGEon 09-11-2023 POINT OF CARE ULTRASOUND NO CHARGE These images are not reportable by radiology and will not be interpreted by Radiologists. Normal [facility] US Abdomenon 09-11-2023 These images are not reportable by radiology and will not be interpreted by Radiologists. IMAGING POINT OF CARE ULTRASOUND NO CHARGEon 09-04-2023 POINT OF CARE ULTRASOUND NO CHARGE These images are not reportable by radiology and will not be interpreted by Radiologists. Normal [facility] US Abdomenon 09-04-2023 These images are not reportable by radiology and will not be interpreted by Radiologists. IMAGING MR SHOULDER RIGHT WITHOUT CO NTRASTon 08-25-2023 MR SHOULDER RIGHT WITHOUT CONTRAST EXAMINATION: MRI RIGHT SHOULDER 08/25/2023 HISTORY: ORDERING SYSTEM PROVIDED HISTORY: Chronic pain of both shoulders, TECHNOLOGIST PROVIDED HISTORY: Illness/Other Reason for exam: chronic rt shoulder pain worsening Encounter Type: Initial Additional signs and symptoms: none ORDERING SYSTEM PROVIDED DIAGNOSIS CODES: M25.511 Chronic pain of both shoulders G89.29 Chronic pain of both shoulders M25.512 Chronic pain of both shoulders COMPARISON: Radiographs right shoulder 09/11/2012. TECHNIQUE: Coronal oblique T1, proton density, T2 fat-saturated images, sagittal proton density, T2, STIR, and axial proton density fat-saturated images of the right shoulder were obtained without contrast. FINDINGS: Several images are slightly degraded by motion artifact. ACROMIOCLAVICULAR JOINT AND ROTATOR CUFF OUTLET: There are moderate degenerative changes of the acromioclavicular joint with subacromial fat effacement. There is a type I acromion. There is a small amount of edema like signal in the subacromial/subdeltoid space. ROTATOR CUFF: There is severe thickening and heterogeneous intermediate T2 signal intensity involving the supraspinatus tendon at its insertion compatible with severe tendinopathy. There is also mild focal tendinopathy of the subscapularis tendon at its insertion. No significant rotator cuff tear is seen. There is no atrophy of the rotator cuff muscles. BICEPS TENDON AND LABRUM: The long bicipital tendon appears within normal limits. The biceps anchor and labrum appear grossly unremarkable. GLENOHUMERAL JOINT: No significant degenerative change is seen. BONES: The bone marrow signal intensity is age-appropriate. IMPRESSION: 1. Severe tendinopathy of the distal supraspinatus tendon and mild tendinopathy of the subscapularis tendon at their insertion. However, no significant rotator cuff tear is seen. 2. Possible mild subacromial/subdeltoid bursitis. 3. Moderate acromioclavicular joint osteoarthritis with subacromial fat effacement. R/ Workstation ID: [id number] Dictated by: KING US on ThuAug 25, 2023 10:34:56 AM EDT Transcribed by: ROXI KIRBY on ThuAug 25, 2023 10:36:58 AM EDT Finalized by: KING US on ThuAug 25, 2023 12:26:34 PM EDT Normal [facility] Comment on above: Order Comment: PT/FA DARRYN #[id number] 07/06/23- 01/02/24Injury/Trauma or Illness?:Illness/OtherHow long have you had these symptoms (acute/chronic)?:ChronicReason for exam?:chronic rt shoulder pain worseningType of Exam?:InitialAdditional signs and symptoms?:none XR Shoulder - bilateral 2 Vi ewson 07-01-2023 Normal exam of the shoulder. MACRO: None Signed by: Kim Stinson 07/01/2023 6:42 PM Dictation workstation: [id number] MMODAL Interpreted By: Kim Miranda, STUDY: XR SHOULDER 2+ VIEWS BILATERAL; 06/30/2023 4:18 pm INDICATION: Signs/Symptoms:PAIN. COMPARISON: None. ACCESSION NUMBER(S): [id number] ORDERING CLINICIAN: POLA GALVAN FINDINGS: There is no evidence for acute fracture or dislocation. The acromioclavicular joint and glenohumeral joints are well maintained. No lytic or blastic lesions are seen. MMODAL Kim Stinson MD - 07/01/2023 Interpreted By: Kim Stinson, STUDY: XR SHOULDER 2+ VIEWS BILATERAL; 06/30/2023 4:18 pm INDICATION: Signs/Symptoms:PAIN. COMPARISON: None. ACCESSION NUMBER(S): [id number] ORDERING CLINICIAN: POLA GALVAN FINDINGS: There is no evidence for acute fracture or dislocation. The acromioclavicular joint and glenohumeral joints are well maintained. No lytic or blastic lesions are seen. IMPRESSION: Normal exam of the shoulder. MACRO: None Signed by: Kim Stinson 07/01/2023 6:42 PM Dictation workstation: [id number] [facility] Work Phone: XR Shoulder - bilateral 2 Vi ewsOrdered By: Kim Stinson on 07-01-2023 [facility] Work Phone: XR SHOULDER 2+ VIEWS BILATER Nikko 06-30-2023 XR SHOULDER 2+ VIEWS BILATERAL Interpreted By: Kim Stinson, STUDY: XR SHOULDER 2+ VIEWS BILATERAL; 06/30/2023 4:18 pm INDICATION: Signs/Symptoms:PAIN. COMPARISON: None. ACCESSION NUMBER(S): [id number] ORDERING CLINICIAN: POLA GALVAN FINDINGS: There is no evidence for acute fracture or dislocation. The acromioclavicular joint and glenohumeral joints are well maintained. No lytic or blastic lesions are seen. IMPRESSION: Normal exam of the shoulder. MACRO: None Signed by: Kim Stinson 07/01/2023 6:42 PM Dictation workstation: [id number] Normal [facility] XR Shoulder - bilateral 2 Vi ewson 06-30-2023 Radiology Study observation (narrative) [facility] Work Phone: Joint Injection Large/Arthro centesis: R subacromial bursaon 11-17-2022 Nataliia Gomez, KATIA N-CELL POURER 11/17/2022 4:48 PM Joint Injection Large/Arthrocentesis: R subacromial bursa on 11/17/2022 4:43 PM Indications: pain Details: 25 G needle, posterior approach Medications: 40 mg triamcinolone acetonide 40 mg/mL Outcome: tolerated well, no immediate complications Procedure, treatment alternatives, risks and benefits explained, specific risks discussed. Consent was given by the patient. Patient was prepped and draped in the usual sterile fashion. [facility] Work Phone: [facility] Work Phone: HEMOGLOBIN A1Con 03-06-2022 Glucose [Mass/Vol] 117 mg/dL Normal [facility] Comment on above: Performed By: #### H BA1E #### [address] [address] HbA1c (Bld) [Mass fraction] 5.7 % Abnormal [facility] Comment on above: Result Comment: Diag nosis of Diabetes-Adults Non-Diabetic: < or = 5.6% Increased risk for developing diabetes: 5.7-6.4% Diagnostic of diabetes: > or = 6.5% . Monitoring of Diabetes Age (y) Therapeutic Goal (%) Adults: >18 <7.0 Pediatrics: 13-18 <7.5 7-12 <8.0 0- 6 7.5-8.5 [employer]. Diabetes Care 33(S1), Apr 2009. Performed By: #### H BA1E #### [address] [address] Office Visit (Primary Care T xt/Forms)on 03-06-2022 Follow-up visit Diagnoses/Problems Assessed Bilateral carpal tunnel syndrome (354.0) (G56.03) Chronic right shoulder pain (719.41,338.29) (M25.511,G89.29) Class 2 obesity with body mass index (BMI) of 38.0 to 38.9 in adult (278.00,V85.38) (E66.9,Z68.38) Orders Bilateral carpal tunnel syndrome EMG and Nerve Conduction; Status:Active; Requested for:06Mar2022; Electrodiagnostic Physician to determine whether Neuromuscular Ultrasound to be performed for optimal study : Yes Electrodiagnostic Physician to determine optimal study : Yes Patient is unable to stand or is >300lbs? : No Additional Clinical Information: : >5yrs Laterality : Bilateral EMG Indication : Carpal Tunnel Syndrome (CTS) Hemoglobin A1C; Status:Resulted - Requires Verification; Done: 06Mar2022 10:30AM TSH - Thyroid Stimulating Hormone, Serum; Status:Resulted - Requires Verification; Done: 06Mar2022 10:30AM Patient Discussion/Summary wrist splints B6 a1c tsh EMG For shoulder continue exercises report in 10 days if not improved. At that point would consider referral and/or MRI Chief Complaint RIGHT SHOULDER PAIN X 1 YR AND LEFT SHOULDER PAIN X 6 MO. BILATE ARMS AND HANDS NUMBNESS AND TINGLING X 1 YR History of Present Illness shoulders some better after PHTH and 5 week rest following a fall, after rtw with in a week back to pain R>L as uses L more 40 mg Kenalog and 1 cc 1% lidocaine without epinephrine was injected into the joint space using sterile technique without complications. to right shoulder Has bilat CTS for lat >5 yrs, uses vibrating hand tools reports flick if he anticipates dropping he clenches firmly does not wake from sleep. Reviewed underlying conditions and will check for hypothyroid and diabetes. Given greater than 5-year duration will get EMG and consider surgical referral as neglect can cause long-term consequences Review of Systems as per hpi Active Problems Problems Asthma (493.90) (J45.909) Chronic right shoulder pain (719.41,338.29) (M25.511,G89.29) Depression (311) (F32.A) Gastroesophageal reflux disease without esophagitis (530.81) (K21.9) Inguinal hernia (550.90) (K40.90) Insomnia (780.52) (G47.00) Non-seasonal allergic rhinitis, unspecified trigger (477.8) (J30.89) Thoracic arthritis (721.2) (M47.814) Surgical History Problems History of Finger amputation History of Inguinal hernia repair Family History Mother No pertinent family history Father No pertinent family history Grandparent Family history of diabetes mellitus (V18.0) (Z83.3) Family history of hypertension (V17.49) (Z82.49) Family history of Primary malignant neoplasm of prostate Social History Problems Consumes alcohol occasionally (V49.89) (Z78.9) Current smoker (305.1) (F17.200) Denies alcohol consumption (V49.89) (Z78.9) No advance directives (V49.89) (Z78.9) Current Meds Medication NameInstruction Albuterol Sulfate HFA 108 (90 Base) MCG/ACT Inhalation Aerosol SolutionInhale 1 - 2 puffs by inhalation route every 4-6 hours as needed Ibuprofen 800 MG Oral TabletTake 1 (one) tablet (800 mg total) by mouth every 6 (six) hours as needed for pain. Montelukast Sodium 10 MG Oral TabletTAKE 1 TABLET BY MOUTH EVERY EVENING Nasacort Allergy 24HR 55 MCG/ACT Nasal Aerosoluse 1 spray to each nostril daily Omeprazole 20 MG Oral Capsule Delayed ReleaseTAKE 1 CAPSULE Daily ZyrTEC Allergy 10 MG Oral TabletTAKE 1 TABLET DAILY. Allergies Medication Augmentin Vitals Vital Signs Recorded: 06Mar2022 09:38AM Heart Rate: 82 Systolic: 156 Diastolic: 82 Height: 5 ft 11 in Weight: 278 lb 3 oz BMI Calculated: 38.8 kg/m2 BSA Calculated: 2.43 Tobacco Use: a) Yes Patient encouraged to stop using tobacco products: Yes Falls Screening (Age 18+): b) One or more falls in the last year O2 Saturation: 98 Physical Exam wrist bl phalens tinel and flaick, no wake , some drop shoudler pain with rom Results/Data TSH - Thyroid Stimulating Hormone, [id number] 10:30Barbara Dunaway Test NameResultFlagReference Thyroid Stimulating Hormone, Serum1.40 mIU/LSee Below Reference Range: 0.44 - 3.98 TSH testing is performed using different testing methodology at [facility] than at other [facility]. Direct result comparisons should only be made within the same method. Hemoglobin [id number] 10:30Barbara Dunaway Test NameResultFlagReference Hemoglobin A1C, Level5.7 %A Diagnosis of Diabetes-Adults Non-Diabetic: < or = 5.6% Increased risk for developing diabetes: 5.7-6.4% Diagnostic of diabetes: > or = 6.5% . Monitoring of Diabetes Age (y) Therapeutic Goal (%) Adults: >18 <7.0 Pediatrics: 13-18 <7.5 7-12 <8.0 0- 6 7.5-8.5 [employer]. Diabetes Care 33(S1), Apr 2009. Estimated Average [id number] MG/DL x ray neg Signatures Electronically signed by : Barbara Contreras MD; Mar 06 2022 1:14PM EST (Author) Normal [facility] TSHon 03-06-2022 TSH Qn 1.40 m[IU]/L Normal 0.44 - 3.98 [facility] Comment on above: Result Comment: TSH testing is performed using different testing methodology at [facility] than at other [facility]. Direct result comparisons should only be made within the same method. Performed By: #### T SH2 #### [facility] [address] [place] [address] Office Visit (Primary Care T xt/Forms)on 10-18-2021 Follow-up visit Diagnoses/Problems Assessed Chronic right shoulder pain (719.41,338.29) (M25.511,G89.29) Non-seasonal allergic rhinitis, unspecified trigger (477.8) (J30.89) Thoracic arthritis (721.2) (M47.814) Gastroesophageal reflux disease without esophagitis (530.81) (K21.9) Orders Chronic right shoulder pain Xray Shoulder Complete Min 2 Views; Status:Hold For - Scheduling; Requested for:18Oct2021; Laterality : Right Radiologist to Determine Optimal Study : Y What are the patient's signs and symptoms? : pain Gastroesophageal reflux disease without esophagitis Start: Omeprazole 20 MG Oral Capsule Delayed Release; TAKE 1 CAPSULE Daily Non-seasonal allergic rhinitis, unspecified trigger Start: Nasacort Allergy 24HR 55 MCG/ACT Nasal Aerosol; use 1 spray to each nostril daily Otolaryngology - General Referral Evaluation and Treatment Evaluate AND Treat Status: Hold For - Scheduling Requested for: 18Oct2021 Start: ZyrTEC Allergy 10 MG Oral Tablet; TAKE 1 TABLET DAILY Thoracic arthritis Xray Thoracic Spine 3 View; Status:Hold For - Scheduling; Requested for:18Oct2021; Radiologist to Determine Optimal Study : Y What are the patient's signs and symptoms? : pain Unlinked Temporarily Stop: Influenza, seasonal, injectable Patient Discussion/Summary call in 1 month for ortho referral if not better woth exercises refer yovana banda xrays. Chief Complaint NPV-WELLNESS. TALKING OTC MEDICATIONS PRILOSEC,NASICORT, AND ZIRTEC. WOULD LIKE TO DISCUSS RX FOR SEASONAL ALLERGIES AND ACID REFLUX( UNDIAGNOSED) History of Present Illness right shoulder hurts, pops, locks, snaps. nki, for 3-4 months , no weakness, no numbness. gets bilat sharp searing pains brionna lat chest inframmammary. like a fire poker and lasts 30-60min occasionally when twisting and toe motor Allergic rhinitis - all yr long and getting worse. eas like underwater. has been taking nasacort and zyrtec daily for 10 yrs. GERD-Takes PPI daily with no breakthrough symptoms. Reviewed dietary, caffeine, tobacco, alcohol, and NSAID avoidance. op-hernia, finger injury, hosp-0 meds zyrtec nasacort and prolosec allergy to augmention rasha nd hives father aw, mother aw, 3sibs aw, no children tob+smokes 1 ppd, Advised on smoking cessation. Reviewed benefits, options for treatment and risks of continued smoking. alc-<2/d, Review of Systems General-no fatigue weight to within 10 pounds ENT no problems with vision swallowing Cardiac no chest pains palpitations change in exercise tolerance or capacity Pulmonary no cough shortness of breath GI no heartburn or abdominal pain Musculoskeletal + joint pains Active Problems Problems Asthma (493.90) (J45.909) Depression (311) (F32.A) Inguinal hernia (550.90) (K40.90) Insomnia (780.52) (G47.00) Surgical History Problems History of Finger amputation History of Inguinal hernia repair Family History Mother No pertinent family history Father No pertinent family history Grandparent Family history of diabetes mellitus (V18.0) (Z83.3) Family history of hypertension (V17.49) (Z82.49) Family history of Primary malignant neoplasm of prostate Social History Problems Consumes alcohol occasionally (V49.89) (Z78.9) Current smoker (305.1) (F17.200) Denies alcohol consumption (V49.89) (Z78.9) No advance directives (V49.89) (Z78.9) Allergies Medication Augmentin Vitals Vital Signs Recorded: 18Oct2021 08:21AM Heart Rate: 75 Systolic: 128 Diastolic: 80 Height: 5 ft 11 in Weight: 276 lb 9 oz BMI Calculated: 38.57 kg/m2 BSA Calculated: 2.42 Tobacco Use: a) Yes Patient encouraged to stop using tobacco products: Yes PHQ-2 #1. Over the last 2 weeks have you felt down, depressed or hopeless? (If yes, answer PHQ-9 below): No PHQ-2 #2. Over the last 2 weeks have you felt little interest or pleasure in doing things? (If yes, answer PHQ-9 below): No Falls Screening (Age 18+): a) No falls within the last year O2 Saturation: 98 Physical Exam General: Alert, No acute distress. Appears stated age Eye: Pupils are equal, round and reactive to light, Extraocular movements are intact, Normal conjunctiva. Neck: Supple, Non-tender, No carotid bruit, No jugular venous distention, No lymphadenopathy, No thyromegaly. Respiratory: Lungs are clear to auscultation, Respirations are non-labored, Breath sounds are equal. Cardiovascular: Normal rate, Regular rhythm, No murmur. Gastrointestinal: Soft, Non-tender, No organomegaly. No solid or pulsatile mass Integumentary: Warm, Dry. No concerning lesions on exposed areas Neurologic: Alert, Oriented. Gross and fine motor intact, CN 2-12 intact Psychiatric: Cooperative, Appropriate mood AND affect. Left shoulder 90 9090 right shoulder 90 9030 pain with resisted abduction Signatures Electronically signed by : Barbara Contreras MD; Oct 18 2021 9:10AM EST (Author) Normal [facility] 10-18-2021 XR Thoracic spine 3 Views Please click on the link to view the study images [facility] Work Phone: XR Thoracic spine 3 Views Normal [facility] Work Phone: XR Shoulder 2 Views Please click on the link to view the study images Normal [facility] Work Phone: XR Shoulder 2 Views Normal [facility] Work Phone: SHOULDER, CMPLT, MIN 2 VIEWS on 10-18-2021 SHOULDER, CMPLT, MIN 2 VIEWS Patient Name: REID JAIN STUDY: SHOULDER, CMPLT, MIN 2 VIEWS; 10/18/2021 9:46 am INDICATION: pain M25.511: Chronic right shoulder pain G89.29:. COMPARISON: None. ACCESSION NUMBER(S): [id number] ORDERING CLINICIAN: BARBARA CONTRERAS FINDINGS: Right shoulder, 5 views There is no fracture. There is no dislocation. No significant degenerative changes seen. IMPRESSION: Unremarkable radiographs of the right shoulder Electronically signed by: PAPA JACKSON MD [facility] SPINE, THORACIC, 3 VIEWSon 0 10-18-2021 SPINE, THORACIC, 3 VIEWS Patient Name: REID JAIN STUDY: SPINE, THORACIC, 3 VIEWS; 10/18/2021 9:47 am INDICATION: pain M47.814: Thoracic arthritis. COMPARISON: None. ACCESSION NUMBER(S): [id number] ORDERING CLINICIAN: BARBARA CONTRERAS FINDINGS: C-spine, three views There is mild osteophytosis and sclerosis in the lower thoracic spine. No fracture or spondylolisthesis seen. IMPRESSION: Mild spondylosis lower thoracic spine without acute abnormality Electronically signed by: PAPA JACKSON MD So1 [facility] Tobacco Screening.on 022 Adult depression screening assessment No [facility] Work Phone: Fall risk assessment a) No falls within the last year [facility] Work Phone: Tobacco use status CPHS a) Yes [facility] Work Phone: Tobacco Screening. Yes [facility] Work Phone: XR Finger(s) Left 2+ Viewson 04-03-2017 XR Finger(s) Left 2+ Views 2 views left hand index finger reveals amputation through the middle phalanx Invalid Interpretation Code FUJI SYNAPSE [facility] [employer] Auto Diffon 03-07-2017 Basophils Auto #/vol (Bld) 0.1 E3/mcL Normal 0.0-0.2 [facility] Comment on above: Order Comment: Order Added by Discern Expert. Performed By: #### 2 [id number] ####MA[address]ina [address] [place] [address] Basophils/100 WBC Auto (Bld) 1.3 % Normal 0.0-2.0 [facility] Comment on above: Order Comment: Order Added by Discern Expert. Performed By: #### 2 [id number] ####[address] [place] [address] Eos Absolute 0.2 E3/mcL Normal 0.0-0.7 [facility] Comment on above: Order Comment: Order Added by Discern Expert. Performed By: #### 2 [id number] ####MA[address] [place] [address] Eosinophils/100 leukocytes 2.4 % Normal 0.0-11.0 [facility] Comment on above: Order Comment: Order Added by Discern Expert. Performed By: #### 2 [id number] ####MA[address]IO [address] [place] [address] Lymphocytes 1.3 E3/mcL Normal 1.2-3.4 [facility] Comment on above: Order Comment: Order Added by Discern Expert. Performed By: #### 2 284105 ####[address] [place] [address] Lymphocytes/100 leukocytes 17.6 % Low 20.0-55.0 [facility] Comment on above: Order Comment: Order Added by Discern Expert. Performed By: #### 2 198714 ####[address] [place] [address] Barnes Absolute 0.7 E3/mcL Normal 0.0-0.7 [facility] Comment on above: Order Comment: Order Added by Discern Expert. Performed By: #### 2 [id number] ####MAURICIO [address] [place] [address] Monocytes/100 leukocytes 9.0 % Normal 0.0-10.0 [facility] Comment on above: Order Comment: Order Added by Discern Expert. Performed By: #### 2 099410 ####MA[address] [place] [address] Neutro Absolute 5.3 E3/mcL Normal 1.4-6.5 [facility] Comment on above: Order Comment: Order Added by Discern Expert. Performed By: #### 2 [id number] ####[address] [place] [address] Neutro Auto 69.7 % Normal 37.0-75.0 [facility] Comment on above: Order Comment: Order Added by Discern Expert. Performed By: #### 2 [id number] ####[address] [place] [address] BMPon 03-07-2017 BUN/Creatinine Ratio 9.1 ratio Normal 5.4-30.0 [facility] Comment on above: Performed By: #### 2 [id number] ####[address] [place] [address] Creatinine 1.1 mg/dL Normal 0.6-1.3 [facility] Comment on above: Performed By: #### 2 553046 ####[address] [place] [address] Urea nitrogen 10 mg/dL Normal 7-18 [facility] Comment on above: Performed By: #### 2 200218 ####[address] [address] [place] [address] Calcium 9.2 mg/dL Normal 8.4-10.2 [facility] Comment on above: Performed By: #### 2 236900 ####[address] [place] [address] Chloride 104 mmol/L Normal 98-107 [facility] Comment on above: Performed By: #### 2 [id number] ####[address] [place] [address] CO2 27.3 mmol/L Normal 24.0-30.0 [facility] Comment on above: Performed By: #### 2 111837 ####[address] [place] [address] Glucose mass conc 82 mg/dL Normal 70-99 [facility] Comment on above: Performed By: #### 2 833469 ####MA[address] [place] [address] Potassium molar conc 3.7 mmol/L Normal 3.5-5.1 [facility] Comment on above: Performed By: #### 2 663710 ####[address] [place] [address] Sodium 139 mmol/L Normal 136-145 [facility] Comment on above: Performed By: #### 2 905462 ####[address] [place] [address] CBC w/ Auto Diffon 7 Erythrocyte distribution width Auto Ratio (RBC) 14.0 % Normal 11.5-14.5 [facility] Comment on above: Performed By: #### 2 777592 ####MA[address] [place] [address] Erythrocytes (RBC) 4.78 E6/mcL Normal 3.90-6.10 [facility] Comment on above: Performed By: #### 2 058509 ####MA[address] [place] [address] Hematocrit (HCT) 44.9 % Normal 42.0-52.0 [facility] Comment on above: Performed By: #### 2 543434 ####MA[address] [place] [address] Hemoglobin mass conc (Bld) 15.3 g/dL Normal 13.5-18.0 [facility] Comment on above: Performed By: #### 2 534382 ####MAUR[address]IO [address] [place] [address] MCH 32.1 pg High 27.0-31.0 [facility] Comment on above: Performed By: #### 2 544068 ####MAUR[address]IO [address] [place] [address] MCHC mass conc (RBC) 34.2 g/dL Normal 33.0-37.0 [facility] Comment on above: Performed By: #### 2 747339 ####[address] [place] [address] MCV 93.8 fL Normal 78.0-100.0 [facility] Comment on above: Performed By: #### 2 287130 ####[address] [place] [address] Platelet mean volume (PMV) 8.0 fL Normal 7.4-11.0 [facility] Comment on above: Performed By: #### 2 666107 ####MA[address] [place] [address] Platelets 236 E3/mcL Normal 130-400 [facility] Comment on above: Performed By: #### 2 528006 ####MA[address] [place] [address] WBC (Leukocytes) 7.6 E3/mcL Normal 3.6-11.0 [facility] Comment on above: Performed By: #### 2 [id number] ####[address] [place] [address] XR Hand 3+ Views Lefton 02-25 XR Hand 3+ Views Left Exam Date/Time:03/07/2017 10:54 ESTReason for Exam:Pain, TraumaticReportRIGHT HAND X-RAY THREE VIEWSHISTORY: Pain.COMPARISON: None.FINDINGS: There is an acute transverse fracture through the distal aspect ofthe second middle phalanx with no intra-articular extension. There isdistraction with dorsal displacement of the distal fragment. There is nodislocation.IMPRESSION:A cute transverse fracture through the distal aspect of the second middlephalanx with no intra-articular extension. There is distraction with dorsaldisplacement of the distal fragment. FINAL REPORT Dictated: 03/07/2017 11:09 am Scotty Loomis MD GSigned (Electronic Signature): 03/07/2017 11:09 amSigned by: Scotty Loomis MD Technologist: HLR Normal [facility] eGFRon 03-07-2017 eGFR (non-black) mL/min/{1.73_m2} Normal [facility] Comment on above: Order Comment: Order added by Discern Expert. Performed By: #### 1 [id number] ####MAUR[address]IO [address] [place] [address] Vital Signs Date Time Vital Sign Value Performing Clinician Ten beal 11-25-2023 15:36-0400 Body height 180.3 cm Thaddeus Wilson MD Work Phone: [facility] 11-25-2023 15:36-0400 Body mass index (BMI) [Ratio] 33.61 kg/m2 Thaddeus Wilson MD Work Phone: [facility] [facility] 11-25-2023 15:36-0400 Body weight 109.32 kg Thaddeus Wilson MD Work Phone: [facility] 11-25-2023 15:36-0400 Diastolic blood pressure 72 mm[Hg] Thaddeus Wilson MD Work Phone: [facility] 11-25-2023 15:36-0400 Heart rate 96 /min Thaddeus Wilson MD Work Phone: [facility] 11-25-2023 15:36-0400 Systolic blood pressure 112 mm[Hg] Thaddeus Wilson MD Work Phone: [facility] 06-29-2023 15:35-0500 Body height 182 cm Helene Shea MD Work Phone: [facility] 06-29-2023 15:35-0500 Body mass index (BMI) [Ratio] 37.38 kg/m2 Helene Shea MD Work Phone: [facility] 06-29-2023 15:35-0500 Body weight 123.83 kg Helene Shea MD Work Phone: [facility] 06-29-2023 15:35-0500 Diastolic blood pressure 86 mm[Hg] Helene Shea MD Work Phone: [facility] 06-29-2023 15:35-0500 Heart rate 80 /min Helene Shea MD Work Phone: [facility] 06-29-2023 15:35-0500 Systolic blood pressure 134 mm[Hg] Helene Shea MD Work Phone: [facility] 05-26-2023 14:42-0500 Body height 180.3 cm Barbara Contreras MD Work Phone: [facility] 05-26-2023 14:42-0500 Body mass index (BMI) [Ratio] 38.81 kg/m2 Barbara Contreras MD Work Phone: [facility] 05-26-2023 14:42-0500 Body weight 126.24 kg Barabra Contreras MD Work Phone: [facility] 05-26-2023 14:42-0500 Diastolic blood pressure 80 mm[Hg] Barbara Contreras MD Work Phone: [facility] 05-26-2023 14:42-0500 Heart rate 72 /min Barbara Contreras MD Work Phone: [facility] 05-26-2023 14:42-0500 SaO2% (BldA) [Mass fraction] 96 % Barbara Contreras MD Work Phone: [facility] 05-26-2023 14:42-0500 Systolic blood pressure 130 mm[Hg] Barbara Contreras MD Work Phone: [facility] 11-17-2022 15:15-0400 Body height 180.3 cm Nataliia Gomez [employer]OM[employer]BILE W[employer]ER [employer]CE[employer] Work Phone: [facility] 11-17-2022 15:15-0400 Body mass index (BMI) [Ratio] 39.44 kg/m2 Nataliia Jason AUTOMOBILE W[employer]ER [employer] Work Phone: [facility] 11-17-2022 15:15-0400 Body weight 128.28 kg Nataliia Jason AUTOMOBILE WASHER [employer]CE[employer] Work Phone: [facility] 11-17-2022 15:15-0400 Diastolic blood pressure 84 mm[Hg] Nataliia Wood AUTOMOBILE WASHER [employer]CE[employer] Work Phone: [facility] 11-17-2022 15:15-0400 Heart rate 74 /min Nataliia Gomez APRN-CELL POURER Work Phone: [facility] 11-17-2022 15:15-0400 SaO2% (BldA) [Mass fraction] 96 % Nataliia Gomez APRN-CELL POURER Work Phone: [facility] 11-17-2022 15:15-0400 Systolic blood pressure 132 mm[Hg] Nataliia Gomez APRN-CELL POURER Work Phone: [facility] 10-18-2021 08:21-0400 Body height 180.34 cm Barbara Lunacel Work Phone: [employer] [employer] [facility] Work Phone: 10-18-2021 08:21-0400 Body mass index (BMI) [Ratio] 38.57 kg/m2 Barbara Neri Stencel Work Phone: [facility] [employer] [facility] Work Phone: 10-18-2021 08:21-0400 Body surface area Derived from formula 2.42 m2 Barbara Lunacel Work Phone: [employer] [employer] [facility] Work Phone: 10-18-2021 08:21-0400 Body weight 125.45 kg Barbara Lunacel Work Phone: [employer] [employer] [facility] Work Phone: 10-18-2021 08:21-0400 Diastolic blood pressure 80 mm[Hg] Barbara Neri Stencel Work Phone: [facility] [employer] [facility] Work Phone: 10-18-2021 08:21-0400 Heart rate 75 /min Barbara Neri Stencel Work Phone: [employer] [facility] Work Phone: 10-18-2021 08:21-0400 SaO2% (BldA) [Mass fraction] 98 % Barbara Neri Stencel Work Phone: [employer] [facility] Work Phone: 10-18-2021 08:21-0400 Systolic blood pressure 128 mm[Hg] Barbara Contreras Work Phone: [facility] Work Phone: 03-12-2017 08:44-0500 BMI (Body Mass Index) 29 kg/m2 Charlie Salcido [facility] Work Phone: 03-12-2017 08:44-0500 Height 179.1 cm Charlie Salcido [facility] Work Phone: 03-12-2017 08:44-0500 Weight 92.99 kg Charlie Salcido [facility] Work Phone: Encounters Encounter Date Encounter Type Care Provider Facility Start: 11-25-2023 End: 11-25-2023 ambulatory BARBARA CONTRERAS [facility] Start: 11-25-2023 End: 11-25-2023 Office outpatient visit 10 minutes Thaddeus Wilson MD Work Phone: [facility] Comment on above: Acute diverticulitis (Primary Dx) Start: 11-20-2023 [facility] Start: 11-09-2023 End: 11-09-2023 ambulatory [facility] Amb[facility] Start: 11-02-2023 End: 11-02-2023 ambulatory [facility] Ambulatory Start: 10-23-2023 End: 10-23-2023 ambulatory [facility] Start: 10-21-2023 End: 10-29-2023 [facility] Start: 10-21-2023 End: 10-21-2023 Emergency department patient visit JUNAID DEV [facility] Start: 10-16-2023 End: 10-16-2023 ambulatory [facility] Start: 10-02-2023 End: 10-02-2023 ambulatory [facility] Start: 09-25-2023 End: 09-25-2023 ambulatory JANETTE M [facility] Start: 09-11-2023 End: 09-11-2023 ambulatory [facility] Start: 09-11-2023 End: 09-11-2023 ambulatory [facility] Start: 09-11-2023 End: 09-11-2023 Office outpatient visit 25 minutes Pola Galvan MD Work Phone: [facility] Comment on above: Chronic right should er pain Start: 09-11-2023 End: 09-11-2023 Subsequent hospital visit by physician [facility] Comment on above: Arrived Start: 09-11-2023 End: 09-11-2023 ambulatory [facility] Start: 09-04-2023 End: 09-04-2023 ambulatory [facility] Start: 09-04-2023 End: 09-04-2023 Subsequent hospital visit by physician [facility] Comment on above: Arrived Start: 09-04-2023 End: 09-04-2023 ambulatory [facility] Start: 08-25-2023 End: 08-25-2023 ambulatory [facility] Start: 08-19-2023 End: 08-19-2023 ambulatory [facility] Start: 08-18-2023 End: 08-18-2023 ambulatory [facility] Start: 08-12-2023 End: 08-12-2023 ambulatory [facility] Start: 08-05-2023 End: 08[facility]05-20[facility] Start: 08-04-2023 End: 08-04-2023 Subsequent hospital visit by physician [facility] Comment on above: Chronic pain of both shoulders Start: 08-04-2023 End: 08-04-2023 ambulatory [facility] Start: 07-27-2023 End: 07-27-2023 ambulatory COLE LORENZ [facility] Start: 06-30-2023 End: 06-30-2023 Subsequent hospital visit by physician Osmin [id number] X-Ray [facility] Comment on above: Chronic pain of both shoulders Start: 06-30-2023 End: 06-30-2023 Office outpatient new 45 minutes Pola Galvan MD Work Phone: [facility] Comment on above: Chronic pain of both shoulders Start: 06-30-2023 End: 06-30-2023 ambulatory BROWDER Lalo [facility] Start: 06-29-2023 End: 06-29-2023 Office consultation new/estab patient 40 min Helene Shea MD Work Phone: [facility] Comment on above: Abdominal wall herni a Start: 06-29-2023 End: 06-29-2023 ambulatory [facility] Start: 05-26-2023 End: 05-26-2023 Office outpatient visit 25 minutes Barbara Contreras MD Work Phone: [facility] Comment on above: Abdominal wall herni a (Primary Dx); Chronic pain of both shoulders; Mild intermittent asthma without complication Start: 05-26-2023 End: 05-26-2023 ambulatory [facility] Ambulatory Start: 01-26-2023 End: 01-26-2023 ambulatory [facility]ulatory Start: 11-17-2022 End: 11-17-2022 Office outpatient visit 25 minutes Nataliia PETERSON Work Phone: [facility] Comment on above: Chronic right should er pain Start: 05-23-2022 Patient encounter procedure [facility] Work Phone: Start: 05-12-2022 End: 05-12-2022 Patient encounter procedure Barbara Contreras MD Work Phone: [facility] Comment on above: Carpal tunnel syndro me on right (Primary Dx) Start: 04-23-2022 AUDIT Barbara lomas Work Phone: [facility] Work Phone: Start: 03-06-2022 Transcribe Orders Barbara Contreras MD Work Phone: [facility] Comment on above: Bilateral carpal moises robbie syndrome (Primary Dx) Start: 01-21-2022 Documentation procedure Demi Caruso LPN [facility] Start: 01-09-2022 End: 01-09-2022 Office outpatient new 30 minutes Viktoriya Wellse Rahman CELL POURER Work Phone: [facility] Comment on above: Injury of right elbo w, initial encounter (Primary Dx) Start: 10-21-2021 Chart Update aBrbara lomas Work Phone: [facility] Work Phone: Start: 10-18-2021 Office outpatient ne w 45 minutes Barbara Contreras Work Phone: [facility] Work Phone: Start: 10-18-2021 ambulatory Barbara Sandoval acility:[id number] Start: 10-06-2017 Ambulatory None Provider Facility: [facility] Start: 04-03-2017 Office outpatient vi sit 15 minutes Charlie Salcido Work Phone: [facility] Start: 03-12-2017 Office outpatient vi sit 10 minutes Charlie Salcido Work Phone: [facility] Start: 03-09-2017 Ambulatory Demi Hargrove [facility] Start: 03-07-2017 End: 03-07-2017 Ambulatory [facility] Facility:[facility] Procedures Date Procedure Procedure Detail Performing Clinician Start: 09-11-2023 FOLLOW UP IN PHYSICA L THERAPY POLA GALVAN Start: 09-11-2023 POINT OF CARE ULTRAS OUND NO CHARGE POLA GALVAN Start: 09-11-2023 US Abdomen Pola leonard MD Work Phone: Start: 09-04-2023 FOLLOW UP IN PHYSICA L THERAPY POLA GALVAN Start: 09-04-2023 US Abdomen Pola leonard MD Work Phone: Start: 08-19-2023 FOLLOW UP IN PHYSICA L THERAPY POLA GALVAN Start: 08-18-2023 FOLLOW UP IN PHYSICA L THERAPY POLA GALVAN Start: 08-12-2023 FOLLOW UP IN PHYSICA L THERAPY POLA GALVAN Start: 08-05-2023 FOLLOW UP IN PHYSICA L THERAPY POLA GALVAN Start: 08-04-2023 MR SHOULDER RIGHT WO IV CONTRAST POLA GALVAN Start: 07-27-2023 AMB REFERRAL TO PHYS ICAL THERAPY POLA GALVAN Start: 06-30-2023 XR SHOULDER 2+ VIEWS BILATERAL POLA GALVAN Start: 06-30-2023 AMB REFERRAL TO ORTH OPAEDIC SURGERY POLA GALVAN Start: 06-30-2023 Radex shoulder compl ete minimum 2 views Pola Galvan MD Work Phone: Start: 06-30-2023 POINT OF CARE ULTRAS OUND NO CHARGE POLA GALVAN Start: 06-29-2023 AMB REFERRAL TO GENE RAL SURGERY POLA GALVAN Start: 01-26-2023 FOLLOW UP IN FAMILY MEDICINE POLA GALVAN Start: 11-17-2022 Arthrocentesis aspir &/inj major jt/bursa w/o Nataliia Gomez [employer] Work Phone: Amputation and disarticulation of finger Barbara Contreras Work Phone: Comment on above: LEFT INDEX FINGER DI STAL TIP; Repair of inguinal hernia Aixa Contreras Work Phone: Plan of Treatment Date Care Activity Detail Author Start: 2046 RSV patient s and/or patients aged 60+ years (1 - 1-dose 60+ series) RSV patients and/or patients aged 60+ years (1 - 1-dose 60+ series) [facility] Start: 2036 Zoster Vaccines (1 of 2) Zoste r Vaccines (1 of 2) [facility] Start: 11-17-2032 DTaP/Tdap/Td Vaccine s (9 - Td or Tdap) DTaP/Tdap/Td Vaccines (9 - Td or Tdap) [facility] Start: 11-17-2032 Tetanus vaccination Tetanus: Every 1 0yrs [facility] Start: 03-07-2027 DTaP/Tdap/Td Vaccine s (8 - Td or Tdap) DTaP/Tdap/Td Vaccines (8 - Td or Tdap) [facility] Start: 03-07-2027 Tetanus vaccination Tetanus: Every 1 0yrs [facility] Start: 03-06-2025 Diabetes mellitus screening Diabetes Screening [facility] Start: 05-31-2024 End: 05-31-2024 Patient encounter procedure 05/31/2024 1:20 PM EST Office Visit [facility] [address] [phone] Barbara Contreras MD [address] [place] [address] [facility] Start: 12-27-2023 Influenza vaccination [facility] Start: 10-23-2023 End: 10-23-2023 ambulatory 10/23/2023 10:45 AM EDT Treatment [address] [phone] Serena Lu, PT [address] [facility] [place] [address] [facility] Start: 10-23-2023 End: 10-23-2023 Patient encounter procedure 10/23/2023 9:30 AM EDT Office Visit [facility] [address] [place] [address] Pola Galvan MD [address] [place] [phone] [facility] Start: 10-16-2023 End: 10-16-2023 ambulatory 10/16/2023 11:30 AM EDT Treatment [facility] [address] [place] [address] Goldie Salguero PTA [address] [place] [address] [facility] Start: 10-09-2023 End: 10-09-2023 ambulatory 10/09/2023 11:30 AM EDT Treatment [facility] [place] [address] Goldie Salguero, COST ESTIMATOR [address] [place] [address] [facility] Start: 10-02-2023 End: 10-02-2023 ambulatory 10/02/2023 11:30 AM EDT Treatment [facility] [place] [address] Serena Lu, PT [address] [place] [address] [facility] Start: 09-25-2023 End: 09-25-2023 ambulatory 09/25/2023 11:00 AM EDT Treatment [facility] [place] [address] Janette Lin, COST ESTIMATOR [address] [place] [address] [facility] Start: 09-11-2023 End: 09-11-2023 ambulatory 09/11/2023 2:45 PM EDT Treatment [facility] [place] [address] Serena Lu, PT [address] [place] [address] [facility] Start: 09-11-2023 End: 09-11-2023 Patient encounter procedure 09/11/2023 9:15 AM EDT Office Visit [facility] [address] [place] [address] Pola Galvan MD [address] [place] [address] [facility] Start: 09-01-2023 End: 09-01-2023 Patient encounter procedure 09/01/2023 10:15 AM EDT Office Visit [facility] [address] [place] [address] Pola Galvan MD [address] [place] [address] [facility] Start: 08-26-2023 End: 08-26-2023 ambulatory 08/26/2023 8:30 AM EDT Treatment [address] [address] [place] [address] Cole Lorenz, PT [address] [facility] [place] [phone] [facility] Start: 08-24-2023 End: 08-24-2023 ambulatory 08/24/2023 2:15 PM EDT Treatment [address] [address] [place] [address] Cole Lorenz, PT [address] [place] [address] [facility] Start: 08-19-2023 End: 08-19-2023 ambulatory 08/19/2023 10:00 AM EDT Treatment [id number] [place] [address] Reyna Dos Santos, COST ESTIMATOR [address] [place] [address] [facility] Start: 08-17-2023 End: 08-17-2023 ambulatory 08/17/2023 2:15 PM EDT Treatment [facility] [address] Cole Lorenz, PT [address] [place] [address] [facility] Start: 08-12-2023 End: 08-12-2023 ambulatory 08/12/2023 9:15 AM EDT Treatment [address] [address] Yane Aleman, COST ESTIMATOR [address] [place] [address] [facility] Start: 08-11-2023 End: 08-11-2023 ambulatory 08/11/2023 8:30 AM EDT Treatment [address] [place] [address] Radha Doran, COST ESTIMATOR [address] [place] [address] [facility] Start: 08-06-2023 End: 08-06-2023 ambulatory 08/06/2023 8:30 AM EDT Treatment [address] [address] Radah Doran, COST ESTIMATOR [address] [place] [address] [facility] Start: 08-05-2023 End: 08-05-2023 ambulatory 08/05/2023 8:15 AM EDT Treatment [address] [address] Janette Lin, COST ESTIMATOR [address] [facility] [place] [address] [facility] Start: 07-21-2023 End: 07-21-2023 Patient encounter procedure 07/21/2023 3:45 PM EDT Office Visit [facility] [address] [place] [phone] Pola Galvan MD [address] [place] [phone] [facility] Start: 06-30-2023 End: 06-30-2023 Patient encounter procedure 06/30/2023 4:00 PM EST Office Visit [facility] [address] [place] [address] Pola Galvan MD [address] [place] [phone] [facility] Start: 06-30-2023 End: 06-29-2024 MR Shoulder - right WO contrast MR shoulder right wo IV contrast Imaging Routine Chronic pain of both shoulders Expected: 06/30/2023, Expires: 06/29/2024 [facility] Work Phone: Comment on above: Expected: 06/30/2023 , Expires: 06/29/2024 Start: 06-29-2023 End: 06-29-2023 Patient encounter procedure 06/29/2023 3:00 PM EST Office Visit [facility] [address] [facility] [address] [place] [phone] Helene Shea MD [address] [facility] [place] [phone] [facility] Start: 06-29-2023 End: 06-28-2024 XR Shoulder - bilateral 2 Views XR shoulder 2+ views bilateral Imaging Routine Chronic pain of both shoulders Expected: 06/29/2023, Expires: 06/28/2024 [facility] Service Area Work Phone: Comment on above: Expected: 06/29/2023 , Expires: 06/28/2024 Start: 03-06-2023 Hemoglobin A1c measurement Diabetes: Hemoglobin A1C [facility] Start: 01-26-2023 End: 01-26-2023 Patient encounter procedure 01/26/2023 2:40 PM EDT Office Visit [facility] [address] [place] [address] Barbara Contreras MD [address] [phone] [facility] Start: 12-26-2022 COVID-19 Vaccine ( season) COVID-19 Vaccine () [facility] Start: 12-26-2022 Influenza vaccination Influenza Vacc ine (#1) [facility] Start: 01-29-2022 End: 01-29-2022 Patient encounter procedure 01/29/2022 Office Visit Sports Medicine Viktoriya Rahman CNP [address] [place] [address] [facility] Start: 01-21-2022 End: 01-21-2022 Patient encounter procedure 01/21/2022 Office Visit Sports Medicine Viktoriya Rahman CNP [address] [phone] [facility] Start: 12-26-2021 Influenza vaccination Sequenti al Influenza Vaccine (#1) [facility] Start: 03-24-2017 Ambulatory 03/24/2017 [facility] Charlie Salcido MD [address] [place] [address] [phone] [facility] Start: 03-12-2017 Ambulatory 03/12/2017 [facility] Charlie Salcido MD [address] [place] [address] [phone] [facility] Start: 12-26-2016 Influenza vaccination SEQUENTI AL INFLUENZA VACCINE (#1) [facility] Work Phone: Start: 2004 Hepatitis C screening Hepatitis C Sc reening [facility] Start: 2001 HIV screening HIV Screening [facility] Start: 07-11-1999 Varicella vaccination Varicell a Vaccines (1 of 2 - 13+ 2-dose series) [facility] Start: 05-15-1999 Varicella vaccination Varicell a Vaccines (1 of 2 - 2-dose childhood series) [facility] Start: 1998 Depression screening using PHQ-9 (Patient Health Questionnaire 9) score [facility] Start: 1992 Pneumococcal Vaccine : Ped or At-Risk (1 - PCV) Pneumococcal Vaccine: Ped or At-Risk (1 - PCV) [facility] Start: 1992 Pneumococcal Vaccine : Ped or At-Risk (1 of 2 - PCV) Pneumococcal Vaccine: Ped or At-Risk (1 of 2 - PCV) [facility] Start: 1992 Pneumococcal Vaccine : Pediatrics (0 to 5 Years) and At-Risk Patients (6 to 64 Years) (1 of 2 - PCV) Pneumococcal Vaccine: Pediatrics (0 to 5 Years) and At-Risk Patients (6 to 64 Years) (1 of 2 - PCV) [facility] Start: 1989 History and physical examination, annual for health maintenance Wellness Visit [facility] Start: 01-10-1987 COVID-19 Vaccine (#1) COVID-19 Vacci ne (#1) [facility] Start: 1986 HIV screening HIV Screening [facility] Start: 1986 Lipid panel Lipid Panel [facility] Start: 1986 Tetanus vaccination TETANUS EVERY 10 YR [facility] Work Phone: Start: 1986 Yearly Adult [facility] End: 08-04-2023 MR Shoulder - right WO contrast MR shoulder right wo IV contrast Imaging Routine Chronic pain of both shoulders Once for 1 Occurrences starting 08/04/2023 until 08/04/2023 [facility] Service Area Work Phone: Comment on above: Once for 1 Occurrenc es starting 08/04/2023 until 08/04/2023 XR Shoulder - bilate ral 2 Views XR shoulder 2+ views bilateral Imaging Routine Chronic pain of both shoulders 06/30/2023 4:18 PM EST [facility] Work Phone: Immunizations Immunization Date Immunization Notes Care Provider Dana euceda 11-17-2022 tetanus toxoid, redu claire diphtheria toxoid, and acellular pertussis vaccine, adsorbed Barbara Contreras MD Work Phone: [facility] 03-07-2017 tetanus toxoid, redu claire diphtheria toxoid, and acellular pertussis vaccine, adsorbed Barbara Contreras Work Phone: [facility] Work Phone: Comment on above: Series: 06-18-2012 tetanus toxoid, redu claire diphtheria toxoid, and acellular pertussis vaccine, adsorbed Barbara D Diane Work Phone: [facility] Work Phone: Comment on above: Series: 10-23-1999 hepatitis B vaccine, pediatric or pediatric/adolescent dosage Barbara D Stencel Work Phone: [facility] Work Phone: Comment on above: Series: 05-20-1999 hepatitis B vaccine, pediatric or pediatric/adolescent dosage Barbara D Stencel Work Phone: [facility] Work Phone: Comment on above: Series: 04-17-1999 hepatitis B vaccine, pediatric or pediatric/adolescent dosage Barbara D Stencel Work Phone: [facility] Work Phone: Comment on above: Series: 04-17-1999 measles, mumps and rubella virus vaccine Barbara D Stencel Work Phone: [facility] Work Phone: Comment on above: Series: 08-10-1991 diphtheria, tetanus toxoids and acellular pertussis vaccine, unspecified formulation Barbara D Stencel Work Phone: [facility] Work Phone: 08-10-1991 trivalent poliovirus vaccine, live, oral Barbara D Stencel Work Phone: [facility] Work Phone: 03-27-1988 diphtheria, tetanus toxoids and acellular pertussis vaccine, unspecified formulation Barbara D Stencel Work Phone: [facility] Work Phone: 03-27-1988 measles, mumps and rubella virus vaccine Barbara D Stencel Work Phone: [facility] Work Phone: Comment on above: Series: 03-27-1988 trivalent poliovirus vaccine, live, oral Barbara D Stencel Work Phone: [facility] Work Phone: 01-09-1987 diphtheria, tetanus toxoids and pertussis vaccine Barbara D Stencel Work Phone: [facility] Work Phone: 1985 diphtheria, tetanus toxoids and pertussis vaccine Barbara D Stencel Work Phone: [facility] Work Phone: 1985 trivalent poliovirus vaccine, live, oral Barbara D Stencel Work Phone: [facility] Work Phone: 1985 diphtheria, tetanus toxoids and pertussis vaccine Barbara D Stencel Work Phone: [facility] Work Phone: 1985 trivalent poliovirus vaccine, live, oral Barbara D Stencel Work Phone: [facility] Work Phone: Payers Date Payer Category Payer Unknown [id number] 2017 Unknown 1985 Unknown [id number] 2.16. [id number] 1985 Unknown [id number] 2.16. [id number] 1985 Unknown [id number] 2.16. 840.1.171702.3.579.2.902 1986 Unknown [id number] 2.16.8 40.1.565298.3.579.2.1245 1986 Unknown [id number] 2.16.8 40.1.988057.3.579.2.1245 1986 Unknown [id number] 2.16.8 40.1.734223.3.579.2.5 1986 Unknown [id number] 2.16. 840.1.858281.3.579.2.903 1986 Unknown [id number] 2.16. 840.1.023691.3.579.2.903 1986 Unknown [id number] 2.16.8 40.1.133758.3.579.2.1243 1986 Unknown [id number] 2.16.8 40.1.593876.3.579.2.1243 1986 Unknown [id number] 2.16.8 40.1.781341.3.579.2.1243 1986 Unknown [id number] 2.16.8 40.1.182378.3.579.2.1243 1986 Unknown [id number] 2.16.8 40.1.462865.3.579.2.1243 1986 Unknown [id number] 2.16.8 40.1.750463.3.579.2.1242 1986 Unknown [id number] 2.16.8 40.1.030067.3.579.2.1243 1986 Unknown [id number] 2.16.8 40.1.471050.3.579.2.1243 1986 Unknown [id number] 2.16.8 40.1.286277.3.579.2.1243 1986 Unknown [id number] 2.16.8 40.1.829145.3.579.2.1243 1986 Unknown [id number] 2.16.8 40.1.107676.3.579.2.1243 1986 Unknown [id number] 2.16.8 40.1.801666.3.579.2.1243 1986 Unknown [id number] 2.16. 840.1.479443.3.579.2.903 1986 Unknown [id number] 2.16. 840.1.038883.3.579.2.903 1986 Unknown [id number] 2.16.8 40.1.515784.3.579.2.1244 1986 Unknown [id number] 2.16.8 40.1.119420.3.579.2.1244 1986 Unknown [id number] 2.16.8 40.1.748155.3.579.2.1244 1986 Unknown [id number] 2.16.8 40.1.339144.3.579.2.1244 1986 Unknown [id number] 2.16.8 40.1.607212.3.579.2.1244 1986 Unknown [id number] 2.16.8 40.1.326129.3.579.2.1244 1986 Unknown [id number] 2.16.8 40.1.818743.3.579.2.1244 Worker's Compensation [id number] Social History Date Type Detail Facility Start: 04-03-2017 End: 11-25-2023 Tobacco smoking status NHIS Current every day smoker [facility] Start: 1985 Sex Assigned At Not on file [facility] Work Phone: Start: 03-09-2017 Tobacco smoking status RIIS Unknown if ever smoked [facility] Work Phone: Start: 01-07-2022 End: 10-22-2023 Current smoker Current smoker [facility] Work Phone: History of tobacco use Cigarette Smoker [facility] Start: 01-07-2022 End: 11-25-2023 Tobacco use and exposure User of smokeless tobacco [facility] History of tobacco use Chews Tobacco [facility] Start: 01-13-2022 End: 11-25-2023 Alcohol intake Current drinker of alcohol (finding) [facility] Start: 12-28-2021 End: 09-11-2023 Exposure to SARS-CoV-2 (event) Not sure [facility] Start: 11-17-2022 Tobacco smoking status NHIS Ex-smoker [facility] History of tobacco use Current smoker [facility] Work Phone: Start: 11-17-2022 Tobacco use and exposure Smokeless tobacco non-user [facility] Work Phone: Start: 11-17-2022 Alcohol intake Defer [facility] Work Phone: Start: 11-17-2022 End: 10-22-2023 Tobacco use panel [facility] Work Phone: Start: 05-26-2023 End: 09-11-2023 Alcohol intake Ex-drinker (finding) [facility] Work Phone: Start: 05-26-2023 Alcohol Comment once-twice/wk [facility] Work Phone: Has the [employer], [employer], or water [employer] threatened to shut off services in your home in past 12Mo No [facility] (I/We) worried wheth er (my/our) food would run out before (I/we) got money to buy more. Never true [facility] In the past 12 month s, has lack of transportation kept you from medical appointments or from getting medications? No [facility] Start: 01-09-2022 Gender identity Identifies as male gender (finding) [facility] Start: 01-09-2022 Sexual orientation Heterosexual (finding) [facility] Clinical Notes 10-18-2021 to 11-25-2023 Thaddeus Wilson MD - 11/25/2023 3:36 PM EDTAssessment & Plan Note - Pola Galvan MD - 09/11/2023 10:54 AM EDTAssessment & Plan Note - Pola Galvan MD - 09/11/2023 10:54 AM EDT Note Date & Type Note Facility 11-25-2023 Note Subjective Patient ID: Reid Jain is a 38 y.o. male. HPI Patient presents for post hospitalization follow up. Patient presented to outside ED 10/20 for abdominal issues and was found to have diverticulitis with a small contained perforation/abscess. He was subsequently transferred. The patient had persistent symptoms while hospitalized so repeat imaging was obtained 10/22, showing slight increase in size of the abscess. Antibiotics were adjusted. He remained admitted on antibiotics. Repeat CT imaging was obtained 10/26 which showed persistence but slightly diminished in size. Ultimately the patient was able to discharge to home on 10/28 on oral antibiotics. He reports he has essentially had complete resolution of symptoms. He no longer is experiencing the severe pain the pelvis/radiation to the groins. He has only a brief occasional pain not near as severe that resolves quickly. He reports his bowels are back to normal. He is eating well without issues. Past Medical History: Diagnosis Date Chronic pain of both shoulders Depression Diverticulitis Past Surgical History: Procedure Laterality Date HERNIA REPAIR has a current medication list which includes the following prescription(s): albuterol, cetirizine, ibuprofen, montelukast, omeprazole, and ondansetron. Allergies: Augmentin [amoxicillin-pot clavulanate] and Keflex [cephalexin] Social History Socioeconomic History Marital status: Single Tobacco Use Smoking status: Every Day Current packs/day: 1.00 Types: Cigarettes Smokeless tobacco: Current Types: Chew Vaping Use Vaping status: Some Days Substance and Sexual Activity Alcohol use: Yes Drug use: Never Social Determinants of Health Food Insecurity: No Food Insecurity (10/22/2023) Hunger Vital Sign Worried About Running Out of Food in the Last Year: Never true Ran Out of Food in the Last Year: Never true Transportation Needs: No Transportation Needs (10/22/2023) PRAPARE - Transportation Lack of Transportation (Medical): No Lack of Transportation (Non-Medical): No Housing Stability: Low Risk (10/22/2023) Housing Stability Vital Sign Unable to Pay for Housing in the Last Year: No Number of Times Moved in the Last Year: 1 Homeless in the Last Year: No No family history on file. Review of Systems Constitutional: Negative for activity change, appetite change, chills, fatigue, fever and unexpected weight change. HENT: Negative for hearing loss, nosebleeds and trouble swallowing. Eyes: Negative for visual disturbance. Respiratory: Positive for shortness of breath. Negative for cough, wheezing and stridor. Cardiovascular: Negative for chest pain and leg swelling. Gastrointestinal: Positive for abdominal pain and nausea. Negative for abdominal distention, blood in stool, constipation, diarrhea and vomiting. Endocrine: Negative for cold intolerance and heat intolerance. Genitourinary: Negative for difficulty urinating, frequency, hematuria and urgency. Musculoskeletal: Negative for arthralgias. Skin: Negative for rash and wound. Allergic/Immunologic: Negative for environmental allergies and food allergies. Neurological: Negative for seizures, syncope, weakness and numbness. Hematological: Negative for adenopathy. Does not bruise/bleed easily. Psychiatric/Behavioral: Negative for agitation and dysphoric mood. Objective Physical Exam Vitals reviewed. Constitutional: General: He is not in acute distress. Appearance: Normal appearance. He is well-developed. He is not diaphoretic. HENT: Head: Normocephalic and atraumatic. Right Ear: External ear normal. Left Ear: External ear normal. Nose: Nose normal. Eyes: Pupils: Pupils are equal, round, and reactive to light. Neck: Thyroid: No thyromegaly. Vascular: No JVD. Trachea: No tracheal deviation. Cardiovascular: Rate and Rhythm: Normal rate and regular rhythm. Heart sounds: Normal heart sounds. Pulmonary: Effort: Pulmonary effort is normal. No respiratory distress. Breath sounds: Normal breath sounds. Abdominal: General: Bowel sounds are normal. There is no distension. Palpations: Abdomen is soft. There is no mass. Tenderness: There is no abdominal tenderness. There is no guarding or rebound. Musculoskeletal: General: Normal range of motion. Cervical back: Normal range of motion. Skin: General: Skin is warm and dry. Neurological: General: No focal deficit present. Mental Status: He is alert. Mental status is at baseline. Cranial Nerves: No cranial nerve deficit. Psychiatric: Behavior: Behavior normal. Assessment/Plan: Diagnoses and all orders for this visit: Acute diverticulitis Resolution of symptoms. No need for additional CT imaging or colonoscopy at this time. Recommend daily fiber supplementation to prevent recurrence. Follow up prn. AUTHENTICATED BY THADDEUS WILSON, ON 11/25/2023 16:01:22 [facility] 11-25-2023 History of Present illness Narrative Subjective Patient ID: Reid Jain is a 38 y.o. male. HPI Patient presents for post hospitalization follow up. Patient presented to outside [facility] 10/20 for abdominal issues and was found to have diverticulitis with a small contained perforation/abscess. He was subsequently transferred. The patient had persistent symptoms while hospitalized so repeat imaging was obtained 10/22, showing slight increase in size of the abscess. Antibiotics were adjusted. He remained admitted on antibiotics. Repeat CT imaging was obtained 10/26 which showed persistence but slightly diminished in size. Ultimately the patient was able to discharge to home on 10/28 on oral antibiotics. He reports he has essentially had complete resolution of symptoms. He no longer is experiencing the severe pain the pelvis/radiation to the groins. He has only a brief occasional pain not near as severe that resolves quickly. He reports his bowels are back to normal. He is eating well without issues. Past Medical History: Diagnosis Date Chronic pain of both shoulders Depression Diverticulitis Past Surgical History: Procedure Laterality Date HERNIA REPAIR has a current medication list which includes the following prescription(s): albuterol, cetirizine, ibuprofen, montelukast, omeprazole, and ondansetron. Allergies: Augmentin [amoxicillin-pot clavulanate] and Keflex [cephalexin] Social History Socioeconomic History Marital status: Single Tobacco Use Smoking status: Every Day Current packs/day: 1.00 Types: Cigarettes Smokeless tobacco: Current Types: Chew Vaping Use Vaping status: Some Days Substance and Sexual Activity Alcohol use: Yes Drug use: Never Social Determinants of Health Food Insecurity: No Food Insecurity (10/22/2023) Hunger Vital Sign Worried About Running Out of Food in the Last Year: Never true Ran Out of Food in the Last Year: Never true Transportation Needs: No Transportation Needs (10/22/2023) PRAPARE - Transportation Lack of Transportation (Medical): No Lack of Transportation (Non-Medical): No Housing Stability: Low Risk (10/22/2023) Housing Stability Vital Sign Unable to Pay for Housing in the Last Year: No Number of Times Moved in the Last Year: 1 Homeless in the Last Year: No No family history on file. Review of Systems Constitutional: Negative for activity change, appetite change, chills, fatigue, fever and unexpected weight change. HENT: Negative for hearing loss, nosebleeds and trouble swallowing. Eyes: Negative for visual disturbance. Respiratory: Positive for shortness of breath. Negative for cough, wheezing and stridor. Cardiovascular: Negative for chest pain and leg swelling. Gastrointestinal: Positive for abdominal pain and nausea. Negative for abdominal distention, blood in stool, constipation, diarrhea and vomiting. Endocrine: Negative for cold intolerance and heat intolerance. Genitourinary: Negative for difficulty urinating, frequency, hematuria and urgency. Musculoskeletal: Negative for arthralgias. Skin: Negative for rash and wound. Allergic/Immunologic: Negative for environmental allergies and food allergies. Neurological: Negative for seizures, syncope, weakness and numbness. Hematological: Negative for adenopathy. Does not bruise/bleed easily. Psychiatric/Behavioral: Negative for agitation and dysphoric mood. Objective Physical Exam Vitals reviewed. Constitutional: General: He is not in acute distress. Appearance: Normal appearance. He is well-developed. He is not diaphoretic. HENT: Head: Normocephalic and atraumatic. Right Ear: External ear normal. Left Ear: External ear normal. Nose: Nose normal. Eyes: Pupils: Pupils are equal, round, and reactive to light. Neck: Thyroid: No thyromegaly. Vascular: No JVD. Trachea: No tracheal deviation. Cardiovascular: Rate and Rhythm: Normal rate and regular rhythm. Heart sounds: Normal heart sounds. Pulmonary: Effort: Pulmonary effort is normal. No respiratory distress. Breath sounds: Normal breath sounds. Abdominal: General: Bowel sounds are normal. There is no distension. Palpations: Abdomen is soft. There is no mass. Tenderness: There is no abdominal tenderness. There is no guarding or rebound. Musculoskeletal: General: Normal range of motion. Cervical back: Normal range of motion. Skin: General: Skin is warm and dry. Neurological: General: No focal deficit present. Mental Status: He is alert. Mental status is at baseline. Cranial Nerves: No cranial nerve deficit. Psychiatric: Behavior: Behavior normal. Assessment/Plan: Diagnoses and all orders for this visit: Acute diverticulitis Resolution of symptoms. No need for additional CT imaging or colonoscopy at this time. Recommend daily fiber supplementation to prevent recurrence. Follow up prn. documented in this encounter [facility] 10-29-2023 Note DISCHARGE SUMMARY Patient: Reid Jain Date of : 1985 Site: [facility] Provider: Barbara Contreras MD Admit Date: 10/21/2023 Discharge Date/Time: 10/29/23 3:00 PM Disposition: Home Clinical Summary Hospital Course: Reid Jain is a 38 y.o. male patient of Barbara Contreras MD with a history of depression who arrives for perforated diverticulitis. He was managed nonoperatively on atb. He was sent home or oral atb and will follow up in office. Discharge Diagnoses: Perforated Diverticulitis Oral atb, regular diet, follow up in office Surgeries: None Consults: Procedures Consult Surgery Inpatient consult to IV Team Allergies: Augmentin [amoxicillin-pot clavulanate] and Keflex [cephalexin] Discharge Diet: Regular Condition: Good Discharge Medications: Discharge Medications New Medications Details ibuprofen 200 MG tablet Commonly known as: ADVIL,MOTRIN Take 4 tablets every 8 hours [id number] for the first 3 days, then may change to as needed. . Quantity: 84 tablet ondansetron 4 MG disintegrating tablet Commonly known as: ZOFRAN-ODT Dissolve 1 (one) tablet (4 mg total) on top of tongue every 6 (six) hours as needed . Quantity: 20 tablet Medications To Continue Details albuterol 90 mcg/actuation inhaler Inhale 1 (one) puff to 2 (two) puffs every 6 (six) hours as needed . cetirizine 10 MG tablet Commonly known as: ZYRTEC Take 1 (one) tablet (10 mg total) by mouth daily . montelukast 10 mg tablet Commonly known as: SINGULAIR Take 1 (one) tablet (10 mg total) by mouth nightly . omeprazole 20 MG tablet Commonly known as: PRILOSEC OTC Take 1 (one) tablet (20 mg total) by mouth daily . Unreviewed Medications Details levoFLOXacin 750 MG tablet Commonly known as: LEVAQUIN Ask about: Should I take this medication? Take 1 (one) tablet (750 mg total) by mouth daily for 7 days . Quantity: 7 tablet metroNIDAZOLE 500 MG tablet Commonly known as: FLAGYL Ask about: Should I take this medication? Take 1 (one) tablet (500 mg total) by mouth 3 (three) times a day with meals for 7 days . Quantity: 21 tablet oxyCODONE 10 MG Tab Commonly known as: ROXICODONE Ask about: Should I take this medication? Take 1 (one) tablet (10 mg total) by mouth every 6 (six) hours as needed for pain (Days supply per fill: 5) . Quantity: 20 tablet Physician(s) Family Provider: Barbara Contreras MD, Address: [address] [place] [address] / [place] [id number] Follow Up: Barbara Contreras MD [address] [place], [place] [id number] Follow up Thaddeus Wilson MD [address] [place] [address] Schedule an appointment as soon as possible for a visit in 1 week(s) after completing antibiotics Additional Information: BP 136/84 Pulse 70 Temp 97.9 degrees F (36.6 degrees C) (Oral) Resp 16 Ht 5' 11 Wt 113.4 kg (250 lb) SpO2 94% BMI 34.87 kg/m Patient instructions, including activity, were given to the patient/family at discharge. Please see the After Visit Summary in the electronic medical record for details. Time spent on discharge: < 30 minutes Completed by: Dede Carbajal CNP on 11/05/23, 7:33 AM AUTHENTICATED BY DEDE CARBAJAL, ON 11/05/2023 07:33:28 [facility] 10-29-2023 Note Patient was schedule d for discharge yesterday and then vomited his entire lunch and refused to go home. So far, he feels much better today. When I entered the room he was eating breakfast. 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 WBC normal He rates his maximal pain when he needs pain medicine now about 5-6, significantly improved from what it was before. Switch to oral antibiotics He is already on oral Zofran as needed. If doing well, hopefully home this afternoon. AUTHENTICATED BY POLA ROBERSON, ON 10/29/2023 08:11:55 [facility] 10-28-2023 Note [facility] DAILY PROGRESS NOTE ASSESSMENT & PLAN/ACTIVE MEDICAL PROBLEMS: Perforated Diverticulitis CT abdomen/pelvis (10/22) with increased air fluid collection near colon. Afebrile. WBC 8.7 (8.4) Pain and nausea improving. Doing well with small amounts of softs diet Abdomen softly distended with bilateral lower quadrant tenderness - IV flagyl +Zosyn - pain control, ambulation - hopeful dc home later on Levaquin and Flagyl -will need follow up in office with Dr. Wilson in 1-2 weeks. Can return to work Thursday if not taking narcotics SURGERIES/PROCEDURES: Date Operation/Procedure Provider Name RESOLVED PROBLEMS: DISPOSITION - Home when able CHIEF COMPLAINT/ HPI / PFSHx / EVENTS OVER LAST 24HRS: Patient resting in bed- states his pain is overall slightly improved- 5-7/10 after pain meds wear off . Nauseated about 12 hours after eating, but doing well otherwise. He noted to be feeling a little better today. REVIEW OF SYSTEMS: Other than the above items the remainder of the complete ROS is otherwise unchanged from admission. PHYSICAL EXAM: Temp: [97.8 degrees F (36.6 degrees C)-98.4 degrees F (36.9 degrees C)] 98.3 degrees F (36.8 degrees C) Heart Rate: [62-80] 62 Resp: [14-18] 18 BP: (127-147)/(82-94) 144/88 GENERAL: Appears age appropriate. No acute distress. NEUROLOGICAL: Alert and oriented X 3. Follows commands with extremities x4. Head: Atraumatic, normocephalic. CARDIOVASCULAR: Regular rate and rhythm. No peripheral edema noted. 2+ pulses radial/DP/PT bilaterally. RESPIRATORY: Respiratory effort unlabored without use of accessory muscles. RA. ABDOMINAL: Rounded, soft, diffuse generalized TTP. No guarding. MUSCULOSKELETAL: Extremities atraumatic without gross deformity x4. SKIN: Skin warm and dry. Intake/Output Summary (Last 24 hours) at 10/28/2023 0903 Last data filed at 10/27/2023 1730 Gross per 24 hour Intake 809.22 ml Output -- Net 809.22 ml IMAGING: CT 10/26 LABS Lab Results Component Value Date WBC 8.71 10/28/2023 HGB 13.2 (L) 10/28/2023 HCT 40.2 (L) 10/28/2023 MCV 94.1 10/28/2023 PLT 298 10/28/2023 RBC 4.27 (L) 10/28/2023 Lab Results Component Value Date GLUCOSE 99 10/28/2023 CALCIUM 8.9 10/22/2023 NA 139 10/28/2023 K 4.0 10/28/2023 CL 103 10/28/2023 BUN 8 10/28/2023 CREATININE 1.16 10/28/2023 No results found for: ALT , AST , GGT , ALKPHOS , BILITOT DAILY CHECKLIST: *Need for Restraints: na *Need for Urinary Catheter: na *Need for Central Access Devices: na *Stress Ulcer Prophylaxis: pepcid *VTE Prophylaxis (Body mass index is 34.87 kg/m ., Estimated Creatinine Clearance: 92.9 mL/min (by C-G formula based on SCr of 1.16 mg/dL).): lovenox 40 mg daily *Home Medications Reconciled: no *Code Status: Full Code AUTHENTICATED BY DEDE CARBAJAL ON 10/28/2023 10:23:25 [facility] 10-27-2023 Note Attestation signed by Thaddeus Wilson MD at 10/27/2023 12:44 PM Seen and examined agree with below. Pain slowly improving. Nausea with applesauce last night but controlled with meds. Passing flatus, 2 small BMs. Hungry but worried about eating. AFVS Abdomen soft, tender - soft diet - repeat CT scan to follow up on abscess [facility] DAILY PROGRESS NOTE ASSESSMENT & PLAN/ACTIVE MEDICAL PROBLEMS: Perforated Diverticulitis CT abdomen/pelvis (10/22) with increased air fluid collection near colon. Afebrile. WBC trending down 8.4 (9.4) Pain and nausea slightly improved. Doing well with small amounts of FLD Abdomen softly distended with diffuse rebound tenderness - IV flagyl +Zosyn - pain control, ambulation - Continue FLD for now, possible advance to soft diet later today. SURGERIES/PROCEDURES: Date Operation/Procedure Provider Name RESOLVED PROBLEMS: DISPOSITION - Home when able CHIEF COMPLAINT/ HPI / PFSHx / EVENTS OVER LAST 24HRS: Patient resting in bed- states his pain is overall slightly improved- 5-10 after pain meds wear off . Nauseated after applesauce, but doing well with other FLD options. REVIEW OF SYSTEMS: Other than the above items the remainder of the complete ROS is otherwise unchanged from admission. PHYSICAL EXAM: Temp: [97.7 degrees F (36.5 degrees C)-98.7 degrees F (37.1 degrees C)] 97.9 degrees F (36.6 degrees C) Heart Rate: [64-78] 66 Resp: [16-18] 18 BP: (146-158)/(84-96) 158/89 GENERAL: Appears age appropriate. No acute distress. NEUROLOGICAL: Alert and oriented X 3. Follows commands with extremities x4. Head: Atraumatic, normocephalic. CARDIOVASCULAR: Regular rate and rhythm. No peripheral edema noted. 2+ pulses radial/DP/PT bilaterally. RESPIRATORY: Respiratory effort unlabored without use of accessory muscles. RA. ABDOMINAL: Rounded, soft, diffuse generalized TTP. Guarded. GENITOURINARY: Normal genitalia for age without lesion or trauma. MUSCULOSKELETAL: Extremities atraumatic without gross deformity x4. SKIN: Skin warm and dry. No intake or output data in the 24 hours ending 10/27/23 0945 IMAGING: Reviewed LABS Lab Results Component Value Date WBC 8.43 10/27/2023 HGB 13.4 (L) 10/27/2023 HCT 40.1 (L) 10/27/2023 MCV 95.0 10/27/2023 PLT 307 10/27/2023 RBC 4.22 (L) 10/27/2023 Lab Results Component Value Date GLUCOSE 96 10/27/2023 CALCIUM 8.9 10/22/2023 NA 138 10/27/2023 K 3.6 10/27/2023 CL 102 10/27/2023 BUN 4 (L) 10/27/2023 CREATININE 1.10 10/27/2023 No results found for: ALT , AST , GGT , ALKPHOS , BILITOT DAILY CHECKLIST: *Need for Restraints: na *Need for Urinary Catheter: na *Need for Central Access Devices: na *Stress Ulcer Prophylaxis: pepcid *VTE Prophylaxis (Body mass index is 34.87 kg/m ., Estimated Creatinine Clearance: 97.9 mL/min (by C-G formula based on SCr of 1.1 mg/dL).): lovenox 40 mg daily *Home Medications Reconciled: no *Code Status: Full Code AUTHENTICATED BY THADDEUS WILSON, ON 10/27/2023 12:44:51 [facility] 10-26-2023 Note Attestation signed by Thaddeus Wilson MD at 10/26/2023 4:01 PM Seen and examined agree with below. Nausea and emesis overnight. Pain slightly improving. Does report he is feeling hungry and thirsty. [facility] Labs reviewed, WBC normal Abdomen soft, TTP in the lower abdomen - will allow full liquids and see how patient does - continue antbiotics [facility] DAILY PROGRESS NOTE ASSESSMENT & PLAN/ACTIVE MEDICAL PROBLEMS: Perforated Diverticulitis Afebrile. WBC trending down 9.4 (9.9, 11.3) CT abdomen/pelvis (10/22) with increased air fluid collection near colon. Pain slightly improved however pt with increased nausea and 2 episodes of emesis overnight. Abdomen softly distended with diffuse rebound tenderness - NPO, IVF - IV flagyl +Zosyn - pain control, ambulation SURGERIES/PROCEDURES: Date Operation/Procedure Provider Name RESOLVED PROBLEMS: DISPOSITION - Home when able CHIEF COMPLAINT/ HPI / PFSHx / EVENTS OVER LAST 24HRS: Patient resting in bed- states that his nausea worsened overnight however his pain is slightly improved but is now more diffuse. REVIEW OF SYSTEMS: Other than the above items the remainder of the complete ROS is otherwise unchanged from admission. PHYSICAL EXAM: Temp: [98.1 degrees F (36.7 degrees C)-99 degrees F (37.2 degrees C)] 98.1 degrees F (36.7 degrees C) Heart Rate: [68-102] 80 Resp: [14-20] 16 BP: (137-169)/(88-102) 169/102 GENERAL: Appears age appropriate. No acute distress. NEUROLOGICAL: Alert and oriented X 3. Follows commands with extremities x4. Head: Atraumatic, normocephalic. CARDIOVASCULAR: Regular rate and rhythm. No peripheral edema noted. 2+ pulses radial/DP/PT bilaterally. RESPIRATORY: Respiratory effort unlabored without use of accessory muscles. RA. ABDOMINAL: Rounded, soft, diffuse generalized TTP. Guarded. GENITOURINARY: Normal genitalia for age without lesion or trauma. MUSCULOSKELETAL: Extremities atraumatic without gross deformity x4. SKIN: Skin warm and dry. Intake/Output Summary (Last 24 hours) at 10/26/2023 0925 Last data filed at 10/26/2023 0000 Gross per 24 hour Intake 1210.77 ml Output 1 ml Net 1209.77 ml IMAGING: Reviewed LABS Lab Results Component Value Date WBC 9.47 10/26/2023 HGB 13.4 (L) 10/26/2023 HCT 40.4 (L) 10/26/2023 MCV 96.0 10/26/2023 PLT 263 10/26/2023 RBC 4.21 (L) 10/26/2023 Lab Results Component Value Date GLUCOSE 103 (H) 10/26/2023 CALCIUM 8.9 10/22/2023 NA 136 10/26/2023 K 4.5 10/26/2023 CL 103 10/26/2023 BUN 6 (L) 10/26/2023 CREATININE 1.17 10/26/2023 No results found for: ALT , AST , GGT , ALKPHOS , BILITOT DAILY CHECKLIST: *Need for Restraints: na *Need for Urinary Catheter: na *Need for Central Access Devices: na *Stress Ulcer Prophylaxis: pepcid *VTE Prophylaxis (Body mass index is 34.87 kg/m ., Estimated Creatinine Clearance: 92.1 mL/min (by C-G formula based on SCr of 1.17 mg/dL).): lovenox 40 mg daily *Home Medications Reconciled: no *Code Status: Full Code AUTHENTICATED BY THADDEUS WILSON, ON 10/26/2023 16:01:26 [facility] 10-25-2023 Note [facility] DAILY PROGRESS NOTE ASSESSMENT & PLAN/ACTIVE MEDICAL PROBLEMS: Perforated Diverticulitis Afebrile. WBC trending down 9.94 (11.3, 10.84) Pain slightly improved however pt with increased nausea and episode of emesis this AM. Multiple BMs. - CT abdomen/pelvis (10/22) with increased air fluid collection near colon. - NPO today - IV flagyl +Zosyn (10/23) SURGERIES/PROCEDURES: Date Operation/Procedure Provider Name RESOLVED PROBLEMS: DISPOSITION - Home when able CHIEF COMPLAINT/ HPI / PFSHx / EVENTS OVER LAST 24HRS: Patient sitting in bed and reports that he had a good night of sleep and felt like his pain and bloating had slightly improved however he reports worsening nausea with an episode of emesis this AM. Patient reports that this is the first time he has truly felt nauseated since his stay and that he has only previously been asking for zofran because he felt like it reduced his bloating. Patient was educated on use of zofran. REVIEW OF SYSTEMS: Other than the above items the remainder of the complete ROS is otherwise unchanged from admission. PHYSICAL EXAM: Temp: [97.4 degrees F (36.3 degrees C)-98.8 degrees F (37.1 degrees C)] 97.4 degrees F (36.3 degrees C) Heart Rate: [57-77] 57 Resp: [16-18] 16 BP: (137-151)/(83-87) 140/87 GENERAL: Appears age appropriate. No acute distress. NEUROLOGICAL: Alert and oriented X 3. Follows commands with extremities x4. GCS = 15 Head Eyes Ear Nose Throat: Head: Atraumatic, normocephalic. CARDIOVASCULAR: Regular rate and rhythm. No peripheral edema noted. 2+ pulses radial/DP/PT bilaterally. RESPIRATORY: Respiratory effort unlabored without use of accessory muscles. RA. ABDOMINAL: Rounded, soft, diffusely TTP in lower abdomen and LUQ. Guarded. GENITOURINARY: Normal genitalia for age without lesion or trauma. MUSCULOSKELETAL: Extremities atraumatic without gross deformity x4. SKIN: Skin warm and dry. Intake/Output Summary (Last 24 hours) at 10/25/2023 0649 Last data filed at 10/24/2023 1300 Gross per 24 hour Intake 760 ml Output -- Net 760 ml IMAGING: Reviewed LABS Lab Results Component Value Date WBC 11.30 (H) 10/24/2023 HGB 13.1 (L) 10/24/2023 HCT 40.0 (L) 10/24/2023 MCV 95.0 10/24/2023 PLT 227 10/24/2023 RBC 4.21 (L) 10/24/2023 Lab Results Component Value Date GLUCOSE 105 (H) 10/23/2023 CALCIUM 8.9 10/22/2023 NA 138 10/23/2023 K 4.1 10/23/2023 CL 105 10/23/2023 BUN 13 10/23/2023 CREATININE 1.07 10/23/2023 No results found for: ALT , AST , GGT , ALKPHOS , BILITOT DAILY CHECKLIST: *Need for Restraints: na *Need for Urinary Catheter: na *Need for Central Access Devices: na *Stress Ulcer Prophylaxis: pepcid *VTE Prophylaxis (Body mass index is 34.87 kg/m ., Estimated Creatinine Clearance: 100.7 mL/min (by C-G formula based on SCr of 1.07 mg/dL).): lovenox 40 mg daily *Home Medications Reconciled: no *Code Status: Full Code AUTHENTICATED BY MYA DE LA GARZA, ON 10/25/2023 08:54:19 [facility] 10-24-2023 Note Attestation signed by Thaddeus Wilson MD at 10/24/2023 9:41 AM Seen and examined agree with below. Pain persists. Reports toradol was helping. Tolerated clears other than broth. Did have a small BM. [facility] WBC slightly up today to 11.3 from 10.8 yesterday. Persistent suprapubic tenderness. - continue clear liquids - daily labs - toradol x24 hours - change antibiotics to zosyn. Patient reports allergy to augmentin (rash) but states that he is able to take amoxicillin by itself, so it seems more likely a reaction to the clavulanic acid. [facility] DAILY PROGRESS NOTE ASSESSMENT & PLAN/ACTIVE MEDICAL PROBLEMS: Perforated Diverticulitis Afebrile. Labs pending this AM. Pain not improved since yesterday, medications adjusted. +small BM this AM - CT abdomen/pelvis with increased air fluid collection near colon. - CLD - IV antibiotics. SURGERIES/PROCEDURES: Date Operation/Procedure Provider Name RESOLVED PROBLEMS: DISPOSITION - Home CHIEF COMPLAINT/ HPI / PFSHx / EVENTS OVER LAST 24HRS: Resting in bed. Patient reports increased pain after breakfast this morning. Holding right lower quadrant yelling out. No nausea or vomiting. REVIEW OF SYSTEMS: Other than the above items the remainder of the complete ROS is otherwise unchanged from admission. PHYSICAL EXAM: Temp: [97.9 degrees F (36.6 degrees C)-98.7 degrees F (37.1 degrees C)] 98.1 degrees F (36.7 degrees C) Heart Rate: [64-77] 64 Resp: [12-18] 16 BP: (129-148)/(64-90) 148/86 GENERAL: Appears age appropriate. No acute distress. NEUROLOGICAL: Alert and oriented X 3. Follows commands with extremities x4. GCS = 15 Head Eyes Ear Nose Throat: Head: Atraumatic, normocephalic. CARDIOVASCULAR: Regular rate and rhythm. No peripheral edema noted. 2+ pulses radial/DP/PT bilaterally. RESPIRATORY: Respiratory effort unlabored without use of accessory muscles. ABDOMINAL: Rounded, soft, diffusely TTP in lower abdomen. Guarded. GENITOURINARY: Normal genitalia for age without lesion or trauma. MUSCULOSKELETAL: Extremities atraumatic without gross deformity x4. SKIN: Skin warm and dry. Intake/Output Summary (Last 24 hours) at 10/24/2023 0827 Last data filed at 10/23/2023 0946 Gross per 24 hour Intake 100 ml Output -- Net 100 ml IMAGING: Reviewed LABS Lab Results Component Value Date WBC 10.84 10/23/2023 HGB 13.8 10/23/2023 HCT 41.3 10/23/2023 MCV 94.1 10/23/2023 PLT 221 10/23/2023 RBC 4.39 (L) 10/23/2023 Lab Results Component Value Date GLUCOSE 105 (H) 10/23/2023 CALCIUM 8.9 10/22/2023 NA 138 10/23/2023 K 4.1 10/23/2023 CL 105 10/23/2023 BUN 13 10/23/2023 CREATININE 1.07 10/23/2023 No results found for: ALT , AST , GGT , ALKPHOS , BILITOT DAILY CHECKLIST: *Need for Restraints: na *Need for Urinary Catheter: na *Need for Central Access Devices: na *Stress Ulcer Prophylaxis: pepcid *VTE Prophylaxis (Body mass index is 34.87 kg/m ., Estimated Creatinine Clearance: 100.7 mL/min (by C-G formula based on SCr of 1.07 mg/dL).): lovenox 40 mg daily *Home Medications Reconciled: no *Code Status: Full Code AUTHENTICATED BY THADDEUS WILSON, ON 10/24/2023 09:41:32 [facility] 10-23-2023 Note Attestation signed by Thaddeus Wilson MD at 10/23/2023 2:35 PM Seen and examined agree with below. Nausea last night with attempted po intake. Persistent pain uncontolled with oral medications. Given all this the CT was repeated, increased air fluid collection adjacent to the colon. Does not appear amenable to drainage, we will continue iv antibiotics and if pain worsens or labs worsen then consider repeat CT to assess for possible drainable collection. WBC normalized today. Persistent abdominal tenderness. [facility] DAILY PROGRESS NOTE ASSESSMENT & PLAN/ACTIVE MEDICAL PROBLEMS: Perforated Diverticulitis Afebrile. Labs pending this AM. Increased pain after regular diet. Unrelieved with dose of dilaudid. - CT abdomen/pelvis with oral and IV contrast. - NPO. - IV antibiotics. SURGERIES/PROCEDURES: Date Operation/Procedure Provider Name RESOLVED PROBLEMS: DISPOSITION - Home CHIEF COMPLAINT/ HPI / PFSHx / EVENTS OVER LAST 24HRS: Resting in bed. Patient reports increased pain after breakfast this morning. Holding right lower quadrant yelling out. No nausea or vomiting. REVIEW OF SYSTEMS: Other than the above items the remainder of the complete ROS is otherwise unchanged from admission. PHYSICAL EXAM: Temp: [98.1 degrees F (36.7 degrees C)-98.8 degrees F (37.1 degrees C)] 98.5 degrees F (36.9 degrees C) Heart Rate: [64-82] 76 Resp: [12-18] 16 BP: (127-142)/(72-84) 142/83 GENERAL: Appears age appropriate. No acute distress. NEUROLOGICAL: Alert and oriented X 3. Follows commands with extremities x4. GCS = 15 Head Eyes Ear Nose Throat: Head: Atraumatic, normocephalic. CARDIOVASCULAR: Regular rate and rhythm. No peripheral edema noted. 2+ pulses radial/DP/PT bilaterally. RESPIRATORY: Respiratory effort unlabored without use of accessory muscles. ABDOMINAL: Rounded, soft, diffusely TTP in lower abdomen. Guarded. GENITOURINARY: Normal genitalia for age without lesion or trauma. MUSCULOSKELETAL: Extremities atraumatic without gross deformity x4. SKIN: Skin warm and dry. Intake/Output Summary (Last 24 hours) at 10/23/2023 0835 Last data filed at 10/23/2023 0419 Gross per 24 hour Intake 2562.14 ml Output 800 ml Net 1762.14 ml IMAGING: Pending repeat imaging. LABS Lab Results Component Value Date WBC 12.98 (H) 10/22/2023 HGB 14.2 10/22/2023 HCT 42.4 10/22/2023 MCV 94.2 10/22/2023 PLT 207 10/22/2023 RBC 4.50 10/22/2023 Lab Results Component Value Date GLUCOSE 92 10/22/2023 CALCIUM 8.9 10/22/2023 NA 136 10/22/2023 K 4.0 10/22/2023 CL 103 10/22/2023 BUN 15 10/22/2023 CREATININE 1.03 10/22/2023 No results found for: ALT , AST , GGT , ALKPHOS , BILITOT DAILY CHECKLIST: *Need for Restraints: na *Need for Urinary Catheter: na *Need for Central Access Devices: na *Stress Ulcer Prophylaxis: pepcid *VTE Prophylaxis (Body mass index is 34.87 kg/m ., Estimated Creatinine Clearance: 104.6 mL/min (by C-G formula based on SCr of 1.03 mg/dL).): lovenox 40 mg daily *Home Medications Reconciled: no *Code Status: Full Code AUTHENTICATED BY THADDEUS WILSON, ON 10/23/2023 14:35:14 [facility] 10-22-2023 Note [facility] DAILY PROGRESS NOTE DIAGNOSIS / REASON FOR CONSULT: Diverticulitis SURGERIES/PROCEDURES: Date Operation/Procedure Provider Name TODAY'S ASSESSMENT AND PLAN OF CARE: Await AM labs Regular diet Possible home this evening DISPOSITION - Planned discharge today to home, tentatively CHIEF COMPLAINT/ HPI / PFSHx / EVENTS OVER LAST 24HRS: No new issues. Pain persists but improving. REVIEW OF SYSTEMS: Other than the above items the remainder of the complete ROS is otherwise unchanged from admission. PHYSICAL EXAM: Temp: [97.7 degrees F (36.5 degrees C)-98.9 degrees F (37.2 degrees C)] 98.9 degrees F (37.2 degrees C) Heart Rate: [62-92] 74 Resp: [12-22] 16 BP: (126-156)/(74-108) 146/89 GENERAL: Appears age appropriate. No acute distress. NEUROLOGICAL: Alert and oriented X 3. Follows commands with extremities x4, equal strength. Pupils equal, round, reactive to light. EOMI. No focal neurologic deficits noted. GCS = 15 EYES/EARS/NOSE/MOUTH/THROAT: Conjunctivae/sclerae/corneas clear. Ears: External ear normal. Hearing within normal limits for patient. No drainage. Nose: nares normal, septum midline, no drainage or nasal tenderness. Neck: supple, symmetrical, trachea midline. CARDIOVASCULAR: Regular rate and rhythm. No clicks, rubs, murmurs or gallops noted. No peripheral edema noted. Telemetry NSR. 2+ pulses radial/DP/PT bilaterally. RESPIRATORY: Lungs, clear to auscultation bilaterally. No rhonchi, wheezes or crackles. Respiratory effort unlabored without use of accessory muscles. ABDOMINAL: Rounded, soft, mildly tender in the lower abdomen, nondistended, normal bowel sounds. No guarding or peritoneal signs. GENITOURINARY: Voiding without difficulty. No dysuria or retention. No gross hematuria. MUSCULOSKELETAL: Extremities atraumatic without gross deformity x4. ROM appropriate for age. No clubbing, cyanosis or joint edema. SKIN: Skin warm and dry. Normal turgor. No rashes or lesions. No intake or output data in the 24 hours ending 10/22/23 0800 IMAGING [briefly note any results pertinent to today's evaluation]: LABS Lab Results Component Value Date WBC 13.17 (H) 10/21/2023 HGB 14.2 10/21/2023 HCT 42.2 10/21/2023 MCV 94.0 10/21/2023 PLT 235 10/21/2023 RBC 4.49 (L) 10/21/2023 Lab Results Component Value Date BUN 11 10/21/2023 CREATININE 1.03 10/21/2023 No results found for: ALT , AST , GGT , ALKPHOS , BILITOT DAILY CHECKLIST: *Need for Restraints: no *Need for Urinary Catheter: no *Need for Central Access Devices: no *VTE Prophylaxis (Body mass index is 34.87 kg/m ., Estimated Creatinine Clearance: 104.6 mL/min (by C-G formula based on SCr of 1.03 mg/dL).): SCD *Code Status: full AUTHENTICATED BY THADDEUS WILSON, ON 10/22/2023 08:02:00 [facility] 10-21-2023 Note [facility] SURGICAL HISTORY & PHYSICAL/CONSULTATION NOTE Surgery Admitted with these risk variables:None. Please see assessment and plan for further details. SURGICAL PROBLEM Acute Diverticulitis with contained perforation ASSESSMENT & PLAN/ACTIVE MEDICAL PROBLEMS: Acute Diverticulitis with contained perforation CT at [facility] with acute diverticulitis with small contained perforation, no fluid collections Patient endorses abdominal pain since 4PM yesterday with intermittent nausea Afebrile, not tachycardic, WBC and lactic pending, BMP stable NPO, IV antibiotics, MIVF Discussed with Dr. Wilson Nicotine Dependence Vapes and uses nicotine pouches daily Hasn't smoked in 1 year Nicotine patch added INCIDENTAL FINDINGS: N/A. CHIEF COMPLAINT: Abdominal pain Notification Time: 1618 Arrival at Bedside: 1645 HISTORY OF PRESENT ILLNESS / INJURY (HPI): Reid Jain is a 38 yo male with a PMH of depression and left inguinal hernia repair, who presented to [facility] with complaints of worsening abdominal pain. He states his abdominal pain started at 4 PM yesterday, and he first thought that it was attributed to a sandwich he got out of a vending machine at work that he ate, but then it progressively got worse as the evening went on. He had some chills, but denies checking if he had a fever. He called off work this morning and presented to [facility] for further workup. He was found to have acute diverticulitis with a contained perforation, no fluid collection identified. He denies emesis, endorses occasional nausea. He has been moving his bowels regularly, denies diarrhea. He has generalized tenderness throughout his abdomen. He is minimally distended, there are no signs of guarding or peritoneal. He is hemodynamically stable at this time. PAST MEDICAL HISTORY (PMH): Past Medical History: Diagnosis Date Depression Past Surgical History: Procedure Laterality Date HERNIA REPAIR Social History Tobacco Use Smoking status: Every Day Current packs/day: 1.00 Types: Cigarettes Smokeless tobacco: Current Types: Chew Vaping Use Vaping status: Some Days Substance Use Topics Alcohol use: Yes Drug use: Never History reviewed. No pertinent family history. MEDICATIONS: Current Facility-Administered Medications on File Prior to Encounter Medication Dose Route Frequency Provider Last Rate Last Admin [COMPLETED] ciprofloxacin (CIPRO) IVPB 400 mg (premix) 400 mg Intravenous Once Salgia, Junaid Dev T., DO Stopped at 10/21/23 1342 [COMPLETED] HYDROmorphone (DILAUDID) injection 0.5 mg 0.5 mg Intravenous Once Salgia, Junaid Dev T., DO 0.5 mg at 10/21/23 1211 [COMPLETED] HYDROmorphone (DILAUDID) injection 0.5 mg 0.5 mg Intravenous Once Salgia, Junaid Dev T., DO 0.5 mg at 10/21/23 1432 [COMPLETED] ketorolac (TORADOL) injection 30 mg 30 mg Intravenous Once Salgia, Junaid Dev T., DO 30 mg at 10/21/23 1102 [COMPLETED] metroNIDAZOLE (FLAGYL) IVPB 500 mg 500 mg Intravenous Once Salgia, Junaid Dev T., DO Stopped at 10/21/23 1238 [COMPLETED] ondansetron (ZOFRAN) injection 4 mg 4 mg Intravenous Once Salgia, Junaid Dev T., DO 4 mg at 10/21/23 1102 [COMPLETED] sodium chloride 0.9% (NS) bolus 1,000 mL 1,000 mL Intravenous Once Salgia, Junaid Dev T., DO Stopped at 10/21/23 1213 [DISCONTINUED] nicotine (NICODERM CQ) 14 mg/24 hr 1 patch 1 patch Transdermal Once Salgia, Junaid Dev T., DO [DISCONTINUED] nicotine polacrilex (NICORETTE) gum 2 mg 2 mg Oral Q1H PRN Gris Barone, RPh,PharmD 2 mg at 10/21/23 1228 Current Outpatient Medications on File Prior to Encounter Medication Sig Dispense Refill cetirizine (ZYRTEC) 10 MG tablet Take 1 (one) tablet (10 mg total) by mouth daily . montelukast (SINGULAIR) 10 mg tablet Take 1 (one) tablet (10 mg total) by mouth nightly . omeprazole (PRILOSEC OTC) 20 MG tablet Take 1 (one) tablet (20 mg total) by mouth daily . ALLERGIES: Allergies Allergen Reactions Augmentin [Amoxicillin-Pot Clavulanate] Keflex [Cephalexin] REVIEW OF SYSTEMS: COVID19 Screen: Negative for fever, cough, SOB, exposure. Constitutional Symptoms: Negative for unexplained falls, weight loss Eyes: Negative for eye pain or vision changes Ears, Nose, Mouth, Throat: Negative for rhinorrhea, nasal pain, dysphagia, hoarseness Cardiovascular: Negative for chest pain, orthopnea, edema Respiratory: Negative for cough, shortness of breath Gastrointestinal: Negative for vomiting, diarrhea, + abdominal pain, nausea Genitourinary: Negative for dysuria, hematuria Musculoskeletal: Negative for pain, joint edema Skin/Breast: Negative for rash, itching, lesions Neurological: Negative for paresthesia, paralysis, loss of bowel or bladder control, loss of consciousness Psychiatric: Negative for depression, anxiety, or suicidal ideations Endocrine: Negative for heat/cold intolerance, polydipsia, poly (more content not included)... [facility] 09-11-2023 Evaluation + Plan note Associated Problem(s): Chronic right shoulder pain Right shoulder impingement syndrome which is making slow steady progress. Plan: Continue to avoid at risk activities is much as possible. The patient is still working but he can adjust his workflow to avoid shoulder injury. Continue the home exercise program and a formal physical therapy which she says is helping him. Follow-up in 6 weeks for reevaluation. I reviewed his MRI scan which shows tendinopathy in the distal supraspinatus which was severe and mild tendinopathy of the subscapularis tendon without a rotator cuff tear. He also has some moderate OA of the acromioclavicular joint with subacromial fat effacement and some mild subacromial and subdeltoid bursitis. I reviewed his ultrasound evaluation today this is consistent with the MRI. He may benefit from a booster injection. We started to discuss risks and benefits of surgical treatment which hopefully he can avoid. [facility] Work Phone: 09-11-2023 Miscellaneous Notes Associated Problem(s): Chronic right shoulder pain Right shoulder impingement syndrome which is making slow steady progress. Plan: Continue to avoid at risk activities is much as possible. The patient is still working but he can adjust his workflow to avoid shoulder injury. Continue the home exercise program and a formal physical therapy which she says is helping him. Follow-up in 6 weeks for reevaluation. I reviewed his MRI scan which shows tendinopathy in the distal supraspinatus which was severe and mild tendinopathy of the subscapularis tendon without a rotator cuff tear. He also has some moderate OA of the acromioclavicular joint with subacromial fat effacement and some mild subacromial and subdeltoid bursitis. I reviewed his ultrasound evaluation today this is consistent with the MRI. He may benefit from a booster injection. We started to discuss risks and benefits of surgical treatment which hopefully he can avoid. documented in this encounter [facility] Work Phone: 09-11-2023 History of Present illness Narrative Assessment/Plan Encounter Diagnoses: Chronic right shoulder pain Chronic right shoulder pain Right shoulder impingement syndrome which is making slow steady progress. Plan: Continue to avoid at risk activities is much as possible. The patient is still working but he can adjust his workflow to avoid shoulder injury. Continue the home exercise program and a formal physical therapy which she says is helping him. Follow-up in 6 weeks for reevaluation. I reviewed his MRI scan which shows tendinopathy in the distal supraspinatus which was severe and mild tendinopathy of the subscapularis tendon without a rotator cuff tear. He also has some moderate OA of the acromioclavicular joint with subacromial fat effacement and some mild subacromial and subdeltoid bursitis. I reviewed his ultrasound evaluation today this is consistent with the MRI. He may benefit from a booster injection. We started to discuss risks and benefits of surgical treatment which hopefully he can avoid. Subjective Patient ID: Reid Jain is a 38 y.o. male. Chief Complaint: Pain of the Right Shoulder Last Surgery: No surgery found Last Surgery Date: No surgery found HPI See above OBJECTIVE: ORTHO EXAM Right shoulder: Inspection: Skin healthy to gross inspection No ecchymosis, no edema, no gross atrophy Palpation: Acromioclavicular joint minimal tenderness Biceps tendon/ groove mild tenderness Anterior Acromial Bursal Area moderate tenderness Cervical spine no tenderness ROM: Forward Flexion 170 and then pain degrees active External Rotation 80 degrees at 90 degrees abduction Internal Rotation 70 degrees at 90 degrees abduction Strength: 5 -/5 Supraspinatus isolation- resisted elevation 5 -/5 Infraspinatus isolation- ER 5/5 Subscapularis- IR Negative lift off test Negative Spurling s test Equivocal Neer and Hawking s test Negative Speed's test Negative Inferior Sulcus Negative Anterior Apprehension Full unrestricted motion at Elbow/Wrist/Hand Neurovascular exam normal distally Left shoulder exam: Inspection: Skin healthy to gross inspection No ecchymosis, no edema, no gross atrophy Palpation: Acromioclavicular joint minimal tenderness Biceps tendon/ groove mild tenderness Anterior Acromial Bursal Area moderate tenderness Cervical spine no tenderness ROM: Forward Flexion 130 and then pain degrees active External Rotation 70 degrees at 90 degrees abduction Internal Rotation 70 degrees at 90 degrees abduction Strength: 5 -/5 Supraspinatus isolation- resisted elevation 5 -/5 Infraspinatus isolation- ER 5/5 Subscapularis- IR Negative lift off test Negative Spurling s test Positive Neer and Hawking s test Negative Speed's test Negative Inferior Sulcus Negative Anterior Apprehension Full unrestricted motion at Elbow/Wrist/Hand Neurovascular exam normal distally IMAGE RESULTS: Point of Care Ultrasound These images are not reportable by radiology and will not be interpreted by Radiologists. ULTRASOUND DIAGNOSTIC ULTRASOUND FINAL REPORT: Right SHOULDER Provider: Pola Galvan MD Date of Exam: Today Procedure: Ultrasound, extremity, nonvascular, real-time, COMPLETE, anatomic specific. Site: SHOULDER Indication: SHOULDER PAIN Technique: B-Mode Ultrasound Examination performed using 8-13 MHz linear transducer with [employer] Software STUDY TYPE: 1. ULTRASOUND EXTREMITY INCLUDING BUT NOT LIMITED TO SHOULDER MUSCLE, TENDONS, LIGAMENTS, FATTY TISSUES, SUBCUTANEOUS TISSUES AND OTHER SOFT TISSUE STRUCTURES SUCH ABSCESSES OR FREE FLUID ACCUMULATION WITHIN THE PRIMARY JOINT WELL ADJACENT JOINTS. 2. REAL TIME WITH IMAGE DOCUMENTATION 3. NON-VASCULAR 4. COMPLETE STUDY WHICH INCLUDES A THOROUGH EVALUATION OF THE SHOULDER MUSCLE, TENDONS, LIGAMENTS, FATTY TISSUES, SUBCUTANEOUS TISSUES AND OTHER SOFT TISSUE STRUCTURES SUCH ABSCESSES OR FREE FLUID ACCUMULATION WITHIN THE PRIMARY JOINT WELL ADJACENT JOINTS. Live ultrasound was performed of the patient s SHOULDER and PERMANENTLY documented. This is a thorough and complete evaluation of a specific anatomic region specifically the SHOULDER. PERMANENT Image documentation was performed. This is the complete and final ultrasound report of the patient's SHOULDER. The patient was positioned in order to optimize the ultrasound evaluation of the SHOULDER. Ultrasound gel was used as a conductive medium in order to both transmit and receive ultrasonic signals that characterize the soft tissues. . I personally performed the ultrasound and reviewed the findings. These show: Findings: SHOULDER Marisa-articular evaluation: Live ultrasound was performed of the patient's SHOULDER that shows tendinosis and partial tears of the supraspinatus and infraspinatus tendons with the deltoid muscle fibers showing normal striations. There was mild sub acromial effusion. Evaluation of the subscapularis with the arm in external rotation showed an intact and normal appearing subscapularis tendon. Joint Evaluation: The biceps tendon was visualized within the bicipital groove. DIAGNOSTIC ULTRASOUND FINAL REPORT: Left SHOULDER Provider: Pola Galvan MD Date of Exam: Today Procedure: Ultrasound, extremity, nonvascular, real-time, COMPLETE, anatomic specific. Site: SHOULDER Indication: SHOULDER PAIN Technique: B-Mode Ultrasound Examination performed using 8-13 MHz linear transducer with [employer] STUDY TYPE: 1. ULTRASOUND EXTREMITY INCLUDING BUT NOT LIMITED TO SHOULDER MUSCLE, TENDONS, LIGAMENTS, FATTY TISSUES, SUBCUTANEOUS TISSUES AND OTHER SOFT TISSUE STRUCTURES SUCH ABSCESSES OR FREE FLUID ACCUMULATION WITHIN THE PRIMARY JOINT WELL ADJACENT JOINTS. 2. REAL TIME WITH IMAGE DOCUMENTATION 3. NON-VASCULAR 4. COMPLETE STUDY WHICH INCLUDES A THOROUGH EVALUATION OF THE SHOULDER MUSCLE, TENDONS, LIGAMENTS, FATTY TISSUES, SUBCUTANEOUS TISSUES AND OTHER SOFT TISSUE STRUCTURES SUCH ABSCESSES OR FREE FLUID ACCUMULATION WITHIN THE PRIMARY JOINT WELL ADJACENT JOINTS. Live ultrasound was performed of the patient s SHOULDER and PERMANENTLY documented. This is a thorough and complete evaluation of a specific anatomic region specifically the SHOULDER. PERMANENT Image documentation was performed. This is the complete and final ultrasound report of the patient's SHOULDER. The patient was positioned in order to optimize the ultrasound evaluation of the SHOULDER. Ultrasound gel was used as a conductive medium in order to both transmit and receive ultrasonic signals that characterize the soft tissues. . I personally performed the ultrasound and reviewed the findings. These show: Findings: SHOULDER Marisa-articular evaluation: Live ultrasound was performed of the patient's SHOULDER that shows tendinosis and partial tearing of the supraspinatus and infraspinatus tendons with the deltoid muscle fibers showing normal striations. There was moderate sub acromial effusion. Evaluation of the subscapularis with the arm in external rotation showed an intact and normal appearing subscapularis tendon. Joint Evaluation: The biceps tendon was visualized within the bicipital groove. Moderate bursitis was seen today. The distal supraspinatus had thickening and loss of normal intrinsic sonographic architecture. Procedures Orders Placed This Encounter Point of Care Ultrasound documented in this encounter [facility] Work Phone: 07-01-2023 Evaluation + Plan note Associated Problem(s): Chronic right shoulder pain Assessment: Bilateral shoulder impingement syndrome. 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 Based on his description this sounds like using a long pole to mix product which is inside a machine of some sort. He has continued to work through his disability. He uses Biofreeze and Whitsett balm. He also takes Motrin. Plan: MRI of the right shoulder should be obtained. He may require bilateral MRI scanning. Medrol Dosepak for early relief. Physical therapy for range of motion and strengthening. Codman's for impingement. [facility] Work Phone: 07-01-2023 Miscellaneous Notes Associated Problem(s): Chronic right shoulder pain Assessment: Bilateral shoulder impingement syndrome. 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 Based on his description this sounds like using a long pole to mix product which is inside a machine of some sort. He has continued to work through his disability. He uses Biofreeze and Whitsett balm. He also takes Motrin. Plan: MRI of the right shoulder should be obtained. He may require bilateral MRI scanning. Medrol Dosepak for early relief. Physical therapy for range of motion and strengthening. Codman's for impingement. documented in this encounter [facility] Work Phone: 06-30-2023 History of Present illness Narrative Assessment/Plan Encounter Diagnoses: Chronic pain of both shoulders Chronic right shoulder pain Assessment: Bilateral shoulder impingement syndrome. 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 Based on his description this sounds like using a long pole to mix product which is inside a machine of some sort. He has continued to work through his disability. He uses Biofreeze and Whitsett balm. He also takes Motrin. Plan: MRI of the right shoulder should be obtained. He may require bilateral MRI scanning. Medrol Dosepak for early relief. Physical therapy for range of motion and strengthening. Codman's for impingement. Subjective Patient ID: Reid Jain is a 37 y.o. male. Chief Complaint: Pain of the Left Shoulder (Limited ROM) and Pain of the Right Shoulder (Worse than left currently) Last Surgery: No surgery found Last Surgery Date: No surgery found HPI See above OBJECTIVE: ORTHO EXAM Right shoulder: Inspection: Skin healthy to gross inspection No ecchymosis, no edema, no gross atrophy Palpation: Acromioclavicular joint minimal tenderness Biceps tendon/ groove mild tenderness Anterior Acromial Bursal Area moderate tenderness Cervical spine no tenderness ROM: Forward Flexion 90 and then pain degrees active External Rotation 70 degrees at 90 degrees abduction Internal Rotation 60 degrees at 90 degrees abduction Strength: 4+/5 Supraspinatus isolation- resisted elevation 5 -/5 Infraspinatus isolation- ER 5/5 Subscapularis- IR Negative lift off test Negative Spurling s test Positive Neer and Hawking s test Negative Speed's test Negative Inferior Sulcus Negative Anterior Apprehension Full unrestricted motion at Elbow/Wrist/Hand Neurovascular exam normal distally Left shoulder exam: Inspection: Skin healthy to gross inspection No ecchymosis, no edema, no gross atrophy Palpation: Acromioclavicular joint minimal tenderness Biceps tendon/ groove mild tenderness Anterior Acromial Bursal Area moderate tenderness Cervical spine no tenderness ROM: Forward Flexion 130 and then pain degrees active External Rotation 70 degrees at 90 degrees abduction Internal Rotation 70 degrees at 90 degrees abduction Strength: 5 -/5 Supraspinatus isolation- resisted elevation 5 -/5 Infraspinatus isolation- ER 5/5 Subscapularis- IR Negative lift off test Negative Spurling s test Positive Neer and Hawking s test Negative Speed's test Negative Inferior Sulcus Negative Anterior Apprehension Full unrestricted motion at Elbow/Wrist/Hand Neurovascular exam normal distally IMAGE RESULTS: OUTSIDE IMAGING SCAN Ordered by an unspecified provider. ULTRASOUND DIAGNOSTIC ULTRASOUND FINAL REPORT: Right SHOULDER Provider: Pola Galvan MD Date of Exam: Today Procedure: Ultrasound, extremity, nonvascular, real-time, COMPLETE, anatomic specific. Site: SHOULDER Indication: SHOULDER PAIN Technique: B-Mode Ultrasound Examination performed using 8-13 MHz linear transducer with [employer] STUDY TYPE: 1. ULTRASOUND EXTREMITY INCLUDING BUT NOT LIMITED TO SHOULDER MUSCLE, TENDONS, LIGAMENTS, FATTY TISSUES, SUBCUTANEOUS TISSUES AND OTHER SOFT TISSUE STRUCTURES SUCH ABSCESSES OR FREE FLUID ACCUMULATION WITHIN THE PRIMARY JOINT WELL ADJACENT JOINTS. 2. REAL TIME WITH IMAGE DOCUMENTATION 3. NON-VASCULAR 4. COMPLETE STUDY WHICH INCLUDES A THOROUGH EVALUATION OF THE SHOULDER MUSCLE, TENDONS, LIGAMENTS, FATTY TISSUES, SUBCUTANEOUS TISSUES AND OTHER SOFT TISSUE STRUCTURES SUCH ABSCESSES OR FREE FLUID ACCUMULATION WITHIN THE PRIMARY JOINT WELL ADJACENT JOINTS. Live ultrasound was performed of the patient s SHOULDER and PERMANENTLY documented. This is a thorough and complete evaluation of a specific anatomic region specifically the SHOULDER. PERMANENT Image documentation was performed. This is the complete and final ultrasound report of the patient's SHOULDER. The patient was positioned in order to optimize the ultrasound evaluation of the SHOULDER. Ultrasound gel was used as a conductive medium in order to both transmit and receive ultrasonic signals that characterize the soft tissues. . I personally performed the ultrasound and reviewed the findings. These show: Findings: SHOULDER Marisa-articular evaluation: Live ultrasound was performed of the patient's SHOULDER that shows tendinosis and partial tears of the supraspinatus and infraspinatus tendons with the deltoid muscle fibers showing normal striations. There was mild sub acromial effusion. Evaluation of the subscapularis with the arm in external rotation showed an intact and normal appearing subscapularis tendon. Joint Evaluation: The biceps tendon was visualized within the bicipital groove. DIAGNOSTIC ULTRASOUND FINAL REPORT: Left SHOULDER Provider: Pola Galvan MD Date of Exam: Today Procedure: Ultrasound, extremity, nonvascular, real-time, COMPLETE, anatomic specific. Site: SHOULDER Indication: SHOULDER PAIN Technique: B-Mode Ultrasound Examination performed using 8-13 MHz linear transducer with [employer] STUDY TYPE: 1. ULTRASOUND EXTREMITY INCLUDING BUT NOT LIMITED TO SHOULDER MUSCLE, TENDONS, LIGAMENTS, FATTY TISSUES, SUBCUTANEOUS TISSUES AND OTHER SOFT TISSUE STRUCTURES SUCH ABSCESSES OR FREE FLUID ACCUMULATION WITHIN THE PRIMARY JOINT WELL ADJACENT JOINTS. 2. REAL TIME WITH IMAGE DOCUMENTATION 3. NON-VASCULAR 4. COMPLETE STUDY WHICH INCLUDES A THOROUGH EVALUATION OF THE SHOULDER MUSCLE, TENDONS, LIGAMENTS, FATTY TISSUES, SUBCUTANEOUS TISSUES AND OTHER SOFT TISSUE STRUCTURES SUCH ABSCESSES OR FREE FLUID ACCUMULATION WITHIN THE PRIMARY JOINT WELL ADJACENT JOINTS. Live ultrasound was performed of the patient s SHOULDER and PERMANENTLY documented. This is a thorough and complete evaluation of a specific anatomic region specifically the SHOULDER. PERMANENT Image documentation was performed. This is the complete and final ultrasound report of the patient's SHOULDER. The patient was positioned in order to optimize the ultrasound evaluation of the SHOULDER. Ultrasound gel was used as a conductive medium in order to both transmit and receive ultrasonic signals that characterize the soft tissues. . I personally performed the ultrasound and reviewed the findings. These show: Findings: SHOULDER Marisa-articular evaluation: Live ultrasound was performed of the patient's SHOULDER that shows tendinosis and partial tearing of the supraspinatus and infraspinatus tendons with the deltoid muscle fibers showing normal striations. There was minimal sub acromial effusion. Evaluation of the subscapularis with the arm in external rotation showed an intact and normal appearing subscapularis tendon. Joint Evaluation: The biceps tendon was visualized within the bicipital groove. Procedures Orders Placed This Encounter XR shoulder 2+ views bilateral Point of Care Ultrasound MR shoulder right wo IV contrast Referral to Physical Therapy documented in this encounter [facility] Work Phone: 06-29-2023 History of Present illness Narrative General Surgery Consultation Patient: Reid Jain : 1985 Date of Consultation: 06/29/23 Referring Primary Care Provider: Barbara Contreras MD Chief Complaint: Abdominal pain History of Present Illness: Reid Jain is a 37 y.o. old male seen at the request of Barbara Contreras MD for evaluation of a possible ventral hernia. He reports that he has been experiencing right upper quadrant abdominal pain. This is usually a sharp pain. He denies any visible bulge. He feels a palpable lump just beneath the right side of his rib cage that he is able to massage. He states that he rolls his hand over this lump starting at the lower part of his rib cage and feels as if something pops back in. He subsequently has resolution of pain. The symptoms do not correlate with eating. 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 He denies any history of trauma/injury to this area. Of note, shortly prior to his appointment with Dr. Contreras he was also having issues with his bowel movements where he felt as though he was not fully evacuating his rectum. He subsequently started Metamucil and that has resolved. Since starting the Metamucil, he has not had any of this right upper quadrant abdominal pain. He has no previous upper abdominal surgery. His only abdominal surgery is an open left inguinal hernia repair by Dr. Anguiano. Medical History: Obesity, BMI 37 Anxiety/depression GERD Asthma Surgical History: Open left inguinal hernia repair Partial amputation of left index finger Home Medications: Prior to Admission medications Medication Sig Start Date End Date Taking? Authorizing Provider albuterol 90 mcg/actuation inhaler Inhale 1-2 puffs every 4 hours. 05/26/23 05/25/24 Yes Barbara Contreras MD cetirizine (ZyrTEC) 10 mg tablet Take 1 tablet (10 mg) by mouth once daily. 10/18/21 Yes Historical Provider, ibuprofen 800 mg tablet Take 1 tablet (800 mg) by mouth 3 times a day as needed for mild pain (1 - 3) (pain). 05/11/23 05/10/24 Yes Barbara Contreras MD montelukast (Singulair) 10 mg tablet Take 1 tablet (10 mg) by mouth once daily at bedtime. 10/23/21 Yes Historical Provider, omeprazole (PriLOSEC) [address] capsule Take 1 capsule (20 mg) by mouth once daily. 05/11/23 05/10/24 Yes Barbara Contreras MD triamcinolone (Nasacort) 55 mcg nasal inhaler Administer 1 spray into affected nostril(s) once daily. 10/18/21 Yes Historical Provider, Allergies: is allergic to amoxicillin-pot clavulanate. Family History: Maternal grandmother with history of stroke. Maternal grandfather with hypertension and diabetes. Social History: Vapes, 1-2 disposables per week. Drinks alcohol 2-3 times per week. ROS: Constitutional: no fever, sweats, and chills Cardiovascular: No chest pain Respiratory: No cough or shortness of breath Gastrointestinal: + Was previously having incomplete evacuation of stool, now resolved with fiber supplementation. + Right upper quadrant abdominal pain and bulge Genitourinary: no dysuria Musculoskeletal: + Joint pain/stiffness, back pain, neck pain, arthritis Integumentary: no rashes Neurological: no confusion Endocrine: no heat or cold intolerance Heme/Lymph: no easy bruising or bleeding Objective: BP 134/86 Pulse 80 Ht 1.82 m (5' 11.65 ) Wt 124 kg (273 lb) BMI 37.38 kg/m Physical Exam: Constitutional: No acute distress, conversant, pleasant Neurologic: alert and oriented Psych: appropriate affect Ears, Nose, Mouth and Throat: mucus membranes moist Pulmonary: No labored breathing Cardiovascular: Regular rate and rhythm Abdomen: soft, non-distended, BMI 37.4, nontender to deep palpation, I do not appreciate any abdominal wall hernias. No visible bulges, no palpable fascial defects, no bulges elicited on leg lift. Musculoskeletal: Moves all extremities, no edema Skin: No jaundice Labs: HgbA1c 5.7% Imaging: No pertinent imaging available for review. Assessment and Plan: Reid Jain is a 37 y.o. old male with intermittent right upper quadrant abdominal pain and patient report of a palpable bulge. I do not appreciate any hernias on physical exam, and he was unable to reproduce the bulge that he reports feeling on leg lift maneuver. Given that he has no previous upper abdominal surgery, it would be an unusual location to have a hernia off of midline in the upper abdomen where patient is reporting the bulge that he feels. We discussed that it is possible that this bulge was constipation related, particularly since it has not recurred since starting the fiber supplementation and his bowel movements improving. My clinical suspicion for hernia is low, but I did offer to order a CT scan of the abdomen and pelvis for further evaluation. At this point, the patient would like to hold off on a CT scan, but if his symptoms were to recur or worsen he will notify my office. I would be happy to see him back and we would get a CT scan at that time. Helene Shea MD 06/29/2023 documented in this encounter [facility] Work Phone: 05-26-2023 History of Present illness Narrative Subjective Patient ID: Reid Jain is a 37 y.o. male who presents for Annual Exam. HPI here for annual exam has concerns about his shoulders. After shots in shoulder wear off the pain is much greater. Had x-ray of right shoulder in 2021. Now at work he will have periods of time where his coworkers ask if he is okay because of the shoulder pain. He is able to maintain pace. Has a question of a bowel problem where he has a feeling of incomplete emptying, will have a bowel movement and then have to return to evacuate on a couple more occasions. The stool product is a bristol 345. Recommend he try Metamucil per label directions daily for 1 month if still problematic bring up when he sees Dr. Pena for the abdominal wall issue From time to time he has some pain in the right upper quadrant which she describes consistent with a vasovagal like someone hit you in the gonads he notes that there is a small bulge at the time and if he presses on it he can relieve the discomfort. Small luq button hole hernia is suspected but is really quite small so perhaps he is getting a incarcerated epiploic fat from time to time. I will refer to Dr. Pena and allow her to choose imaging options Mild intermittent asthma with intermittent albuterol use. On Singulair regularly GERD-Prilosec OTC as available Review of Systems Except as per HPI is unremarkable. General-no fatigue weight to within 10 pounds ENT no problems with vision swallowing Cardiac no chest pains palpitations change in exercise tolerance or capacity Pulmonary no cough shortness of breath GI no heartburn. Abdominal pain as per HPI Musculoskeletal shoulder joint pains as per HPI Objective BP 130/80 Pulse 72 Ht 1.803 m (5' 11 ) Wt 126 kg (278 lb 4.8 oz) SpO2 96% BMI 38.81 kg/m Physical Exam General: Alert, No acute distress. Appears stated age Eye: Pupils are equal, round and reactive to light, Extraocular movements are intact, Normal conjunctiva. Neck: Supple, Non-tender, No carotid bruit, No jugular venous distention, No lymphadenopathy, No thyromegaly. Respiratory: Lungs are clear to auscultation, Respirations are non-labored, Breath sounds are equal. Cardiovascular: Normal rate, Regular rhythm, No murmur. Gastrointestinal: Soft, Non-tender, No organomegaly. No solid or pulsatile mass Integumentary: Warm, Dry. No concerning lesions on exposed areas Neurologic: Alert, Oriented. Gross and fine motor intact, CN 2-12 intact Psychiatric: Cooperative, Appropriate mood & affect. Right shoulder shows abduction 90 external rotation 45 internal rotation 12 the left shoulder has some discomfort but can abduct 90 ER 90 IR 70 Assessment/Plan Problem List Items Addressed This Visit ICD-10-CM Asthma J45.909 Relevant Medications albuterol 90 mcg/actuation inhaler Other Visit Diagnoses Codes Abdominal wall hernia - Primary K43.9 Relevant Orders Referral to General Surgery Chronic pain of both shoulders M25.511, G89.29, M25.512 Relevant Orders Referral to Orthopaedic Surgery documented in this encounter [facility] Work Phone: 11-17-2022 History of Present illness Narrative Associated Order(s): Joint Injection Large/Arthrocentesis: R subacromial bursa Subjective Patient ID: Reid Jain is a 37 y.o. male who presents for Shoulder Pain (RIGHT SHOULDER , REQUESTS INJECTION ). Reid comes to the office for complaints of bilateral shoulder pain. States he has chronic right shoulder pain and had previously had an injection in February 2022 due to his work schedule was unable to return sooner for further evaluation. Comes to the office today requesting injection to the right shoulder. + limited ROM to arm sonia. with overhead activities making his job more challenging. Over the past 2 years has been having issues with left shoulder pain and popping Request tetanus shot as it has been greater than 10 years since his last one. Review of Systems Musculoskeletal: Positive for arthralgias and myalgias. Negative for back pain, gait problem, joint swelling, neck pain and neck stiffness. Objective BP 132/84 Pulse 74 Ht 1.803 m (5' 11 ) Wt 128 kg (282 lb 12.8 oz) SpO2 96% BMI 39.44 kg/m Physical Exam Musculoskeletal: Right shoulder: Tenderness present. No swelling, deformity or effusion. Decreased range of motion. Normal strength. Left shoulder: Tenderness present. No swelling, deformity or effusion. Normal range of motion. Normal strength. Comments: R arm + apley scratch & drop arm test Painful arc R arm Patient ID: Reid Jain is a 37 y.o. male. Joint Injection Large/Arthrocentesis: R subacromial bursa on 11/17/2022 4:43 PM Indications: pain Details: 25 G needle, posterior approach Medications: 40 mg triamcinolone acetonide 40 mg/mL Outcome: tolerated well, no immediate complications Procedure, treatment alternatives, risks and benefits explained, specific risks discussed. Consent was given by the patient. Patient was prepped and draped in the usual sterile fashion. Assessment/Plan Problem List Items Addressed This Visit Chronic right shoulder pain Relevant Medications meloxicam (Mobic) 15 mg tablet Other Relevant Orders Follow Up In Primary Care - Established documented in this encounter [facility] Work Phone: 11-17-2022 Instructions NICHOLAS Bernal - 11/17/2022 3:00 PM EDT Received tetanus immunization today Ice 20 minutes 3 times per day to right shoulder as able Stop Ibuprofen Start meloxicam 15 mg by mouth daily in a.m. with food Office visit in 3 months for a potential right shoulder injection documented in this encounter [facility] Work Phone: 05-12-2022 History of Present illness Narrative Images from the original note were not included. [facility] - Neurology [address], [facility] 2nd floor [place] [id number] Nerve Conduction & EMG Report Patient: Reid Jain Sex: Male Date of : 1985 Visit Date: 05/12/2022 10:28 AM Age: 36 Years Examining MD: Adam Moon MD Referred by: Dr. Contreras Temperature: 32.3 Current Height: 5 feet 11 inch Referred for: Months of BUE numbness , pain and paresthesia. No neck pain or DM. Plan: The study is design to evaluate for radiculopathy, plexopathy, entrapment neuropathy, median or ulnar neuropathy. Indication, risk, side effects, and alternatives were explained. Patient agreed to proceed. Patient was instructed to clean the puncture site with soap and water and put some ice pack for bruising. Impression: This is an abnormal EMG. There is electrodiagnostic evidence of a borderline right median nerve entrapment at the wrist without axonal damage at this time. There is NO electrodiagnostic evidence of bilateral cervical radiculopathy, brachial plexopathy, ulnar neuropathy, or left median neuropathy at this time. EMG Summary: The bilateral median motor nerve conduction studies were normal. The right median sensory nerve conduction study showed borderline latency and normal amplitude. The left median sensory nerve conduction study was normal. The bilateral ulnar motor and sensory nerve conduction studies was normal. The bilateral radial sensory nerve conduction study were normal. Needle EMG of the muscles tested showed no abnormal spontaneous activity. Normal motor unit action potentials and recruitment patterns were seen. Adam Moon MD Diplomate, ABPN, NBPAS Clinical Neurophysiology, Neurology, Vascular Neurology and Sleep Medicine [facility] [place] [address]50 Motor NCS Nerve / Sites Muscle Latency Amplitude Distance Velocity ms mV cm m/s R Median - APB Wrist APB 3.92 16.0 7 Elbow APB 8.17 16.0 22.5 52.9 L Median - APB Wrist APB 4.02 11.7 7 Elbow APB 8.27 9.6 22.5 52.9 R Ulnar - ADM Wrist ADM 2.69 11.2 6.5 B.Elbow ADM 6.58 11.0 23 59.0 A.Elbow ADM 8.31 10.7 10 57.8 L Ulnar - ADM Wrist ADM 2.98 13.2 6.5 B.Elbow ADM 7.00 12.6 24 59.7 A.Elbow ADM 9.15 12.3 11 51.3 Sensory NCS Nerve / Sites Peak Amp Amp.2-3 Distance Velocity ms V V cm m/s R Median - Digit II Wrist 3.65 21.6 46.4 13 42 L Median - Digit II Wrist 3.48 16.4 35.9 13 52 R Ulnar - Digit V Wrist 2.85 16.7 26.8 11 51 L Ulnar - Digit V Wrist 2.96 16.6 18.0 11 46 R Radial - Snuff Forearm 2.08 23.1 15.1 10 62 L Radial - Snuff Forearm 2.00 26.0 16.9 10 76 EMG Summary Table Spontaneous Activity Amplitude Duration Recruitment Polyphasia Comment Muscle Ins Act Fib PSW Fasc - - - - - L. Deltoid Normal 0 0 0 Normal Normal Normal Normal Normal L. Triceps brachii Normal 0 0 0 Normal Normal Normal Normal Normal L. Biceps brachii Normal 0 0 0 Normal Normal Normal Normal Normal L. Pronator teres Normal 0 0 0 Normal Normal Normal Normal Normal L. Extensor digitorum communis Normal 0 0 0 Normal Normal Normal Normal Normal L. First dorsal interosseous Normal 0 0 0 Normal Normal Normal Normal Normal L. Abductor pollicis brevis Normal 0 0 0 Normal Normal Normal Normal Normal R. Deltoid Normal 0 0 0 Normal Normal Normal Normal Normal R. Triceps brachii Normal 0 0 0 Normal Normal Normal Normal Normal R. Biceps brachii Normal 0 0 0 Normal Normal Normal Normal Normal R. Pronator teres Normal 0 0 0 Normal Normal Normal Normal Normal R. Extensor digitorum communis Normal 0 0 0 Normal Normal Normal Normal Normal R. First dorsal interosseous Normal 0 0 0 Normal Normal Normal Normal Normal R. Abductor pollicis brevis Normal 0 0 0 Normal Normal Normal Normal Normal documented in this encounter [facility] 01-21-2022 History of Present illness Narrative Patient phoned in stating that his mother is covid positive and he was exposed. Advised patient he needs to make a new appt for next week. Note written stating reason he could not come to office today. documented in this encounter [facility] 01-13-2022 History of Present illness Narrative [facility] [address] [facility] [address] [facility] [id number] Chief Complaint Patient presents with Right Elbow - Pain Reid Jain presents to the office today for right elbow pain. He sustained an injury to the right elbow after a fall. He ended up in the emergency room and was told that there was no fracture on the x-ray but that there may be an occult fracture. He has take pain medications but the elbow is still painful. He reports pain with range of motion. He states that his pain is actually more into the forearm area on both the top and bottom. He denies any numbness or tingling into the hand or fingers. The patient's past medical history, surgical history, social history, family history, medications and allergies were reviewed with the patient today and are available in the chart for further review. Allergies Allergen Reactions Augmentin [Amoxicillin-Pot Clavulanate] Keflex [Cephalexin] Current Outpatient Medications: ibuprofen (ADVIL,MOTRIN) 800 MG tablet, Take 1 (one) tablet (800 mg total) by mouth every 6 (six) hours as needed for pain ., Disp: 30 tablet, Rfl: 2 oxyCODONE-acetaminophen (PERCOCET) 5-325 mg per tablet, Take 5 tablets by mouth every 4 (four) hours as needed for pain., Disp: , Rfl: 0 Past Medical History: Diagnosis Date Depression Past Surgical History: Procedure Laterality Date HERNIA REPAIR Social History Socioeconomic History Marital status: Single Tobacco Use Smoking status: Every Day Packs/day: 1.00 Types: Cigarettes Smokeless tobacco: Current Types: Chew Vaping Use Vaping Use: Some days Substance and Sexual Activity Alcohol use: Yes Drug use: Never ROS: Review of Systems Constitutional: Negative for activity change and fatigue. HENT: Negative for congestion, hearing loss and trouble swallowing. Eyes: Negative for visual disturbance. Respiratory: Negative for chest tightness and shortness of breath. Cardiovascular: Negative for chest pain and palpitations. Gastrointestinal: Negative for abdominal pain, diarrhea, nausea and vomiting. Endocrine: Negative for polydipsia, polyphagia and polyuria. Genitourinary: Negative for decreased urine volume, difficulty urinating and hematuria. Musculoskeletal: Positive for arthralgias, joint swelling and myalgias. Skin: Negative for color change, rash and wound. Allergic/Immunologic: Negative for immunocompromised state. Neurological: Negative for dizziness, weakness, light-headedness and numbness. Hematological: Does not bruise/bleed easily. Psychiatric/Behavioral: Negative for confusion and sleep disturbance. The patient is not nervous/anxious. PE: Physical Exam Constitutional: Appearance: He is well-developed. HENT: Head: Normocephalic. Eyes: Pupils: Pupils are equal, round, and reactive to light. Cardiovascular: Rate and Rhythm: Normal rate and regular rhythm. Pulmonary: Effort: Pulmonary effort is normal. Breath sounds: Normal breath sounds. Abdominal: General: Bowel sounds are normal. Palpations: Abdomen is soft. Musculoskeletal: General: Swelling, tenderness and signs of injury present. Normal range of motion. Cervical back: Normal range of motion and neck supple. Skin: General: Skin is warm and dry. Neurological: Mental Status: He is alert and oriented to person, place, and time. ORTHO: Right Elbow Exam Tenderness The patient is experiencing tenderness in the radial head, medial epicondyle, lateral epicondyle and radial capitellar joint. Range of Motion Extension: -10 Flexion: 110 Pronation: -10 Supination: 110 Muscle Strength Right elbow normal strength: Painful with testing. Pronation: 3/5 Supination: 3/5 Tests Varus: negative Valgus: negative Other Erythema: absent Scars: absent Sensation: normal Pulse: present Imaging: R Elbow: No acute osseous abnormality. Moderate-sized enthesophyte at the dorsal olecranon, triceps tendon insertion. Joint alignment is anatomic. No joint effusion. Soft tissues are within normal limits Assessment/Plan: After examination and reviewing of the patient x-ray images we discussed continued treatment options for the right elbow. At this point in time he does not feel as though he is able to return to work and do his job safely so I am keeping him off work for the next 2 weeks until I see him back for follow-up. He is to continue with any OTC pain medications as needed. I am also placing him in a sling and this is to be worn except for showering. I will see him back in 2 weeks and we will perform new imaging. documented in this encounter [facility] 10-18-2021 History of Present illness Narrative right shoulder hurts, pops, locks, snaps. nki, for 3-4 months , no weakness, no numbness.gets bilat sharp searing pains brionna lat chest inframmammary. like a fire poker and lasts 30-60min occasionally when twisting and toe motorAllergic rhinitis - all yr long and getting worse. eas like underwater. has been taking nasacort and zyrtec daily for 10 yrs.GERD-Takes PPI daily with no breakthrough symptoms. Reviewed dietary, caffeine, tobacco, alcohol, and NSAID avoidance.op-hernia, finger injury,hosp-0meds zyrtec nasacort and prolosecallergy to augmention rasha nd hivesfather aw, mother aw, 3sibs aw, no childrentob+smokes 1 ppd, Advised on smoking cessation. Reviewed benefits, options for treatment and risks of continued smoking.alc-<2/d, [facility] Work Phone: Evaluation note Diagnosis Injury of right elbow, initial encounter- [facility] Diagnosis Bilateral carpal tunnel syndrome- Primary Carpal tunnel syndrome [facility] Diagnosis Carpal tunnel syndrome on right- Primary Carpal tunnel syndrome [facility] Diagnosis Chronic right shoulder pain Pain in joint, shoulder region documented in this encounter [facility] Work Phone: [phone] note* Diagnosis Abdominal wall hernia- Primary Unspecified ventral hernia without mention of obstruction or gangrene Chronic pain of both shoulders Mild intermittent asthma without complication documented in this encounter [facility] Work Phone: [phone] note* Diagnosis Abdominal wall hernia Unspecified ventral hernia without mention of obstruction or gangrene Chronic pain of both shoulders documented in this encounter [facility] Work Phone: [phone] note* Diagnosis Chronic pain of both shoulders documented in this encounter [facility] Work Phone: [phone] note* Diagnosis Chronic pain of both shoulders documented in this encounter [facility] Work Phone: [phone] note* Diagnosis Chronic pain of both shoulders documented in this encounter [facility] Work Phone: [phone] note* Diagnosis Chronic pain of both shoulders documented in this encounter [facility] Work Phone: [phone] note* Diagnosis Chronic right shoulder pain Pain in joint, shoulder region documented in this encounter [facility] Work Phone: [phone] note* Diagnosis Acute diverticulitis- Primary [facility] Consultation (Routine) - Authorized Specialty Diagnoses / Procedures Referred By Paul t Referred To Contact General Surgery Diagnoses Abdominal wall hernia Barbara Contreras MD [address] [place] [address] Helene Shea MD [address] [facility], [facility] [address] [place] [address] Referral ID Status Reason Start Date Expiration Date Visits Requested Visits Authorized [id number] Authorized Specialty Services Required 05/26/2023 05/25/2024 1 1 * Consultation (Routine) - Authorized Specialty Diagnoses / Procedures Referred By Contac t Referred To Contact Orthopaedic Surgery / Orthopedic Surgery Diagnoses Chronic pain of both shoulders Barbara Contreras MD [address] [place] [address] Pola Galvan MD [address] [facility] [address] [place] [address] Referral ID Status Reason Start Date Expiration Date Visits Requested Visits Authorized [id number] Authorized Specialty Services Required 05/26/2023 05/25/2024 1 1 [facility] Work Phone: Reason for visit Narrative* Consultation (Routine) - Authorized Specialty Diagnoses / Procedures Referred By Contac t Referred To Contact General Surgery Diagnoses Abdominal wall hernia Barbara Contreras MD [address] [place] [address] Helene Shea MD [address] [place] [address], [facility] [address] [place] [address] Referral ID Status Reason Start Date Expiration Date Visits Requested Visits Authorized [id number] Authorized Specialty Services Required 05/26/2023 05/25/2024 1 1 [facility] Work Phone: Assessments Diagnosis 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 Summary Purpose Family History No Family History Records FoundUnknown Family Member Name Dates Details No pertinent family history: Mother, Father(V49.89, Z78.9) Status:Active Primary malignant neoplasm o f prostate: Grandparent Status:Active Family history of diabetes m ellitus: Grandparent(V18.0, Z83.3) Status:Active Family history of hypertensi on: Grandparent(V17.49, Z82.49) Status:Active Unknown Family Member Name Dates Details No pertinent family history: Mother, Father(V49.89, Z78.9) Status:Active Primary malignant neoplasm o f prostate: Grandparent Status:Active Family history of diabetes m ellitus: Grandparent(V18.0, Z83.3) Status:Active Family history of hypertensi on: Grandparent(V17.49, Z82.49) Status:Active Unknown Family Member Name Dates Details No pertinent family history: Mother, Father(V49.89, Z78.9) Status:Active Primary malignant neoplasm o f prostate: Grandparent Status:Active Family history of diabetes m ellitus: Grandparent(V18.0, Z83.3) Status:Active Family history of hypertensi on: Grandparent(V17.49, Z82.49) Status:Active Unknown Family Member Name Dates Details No pertinent family history: Mother, Father(V49.89, Z78.9) Status:Active Primary malignant neoplasm o f prostate: Grandparent Status:Active Family history of diabetes m ellitus: Grandparent(V18.0, Z83.3) Status:Active Family history of hypertensi on: Grandparent(V17.49, Z82.49) Status:Active Advance Directives No Advanced Directives Records Found Date Activated Date Inactivated Comments 10/21/2023 5:22 PM 10/29/2023 5:16 PM Chief Complaint NPV-WELLNESS. TALKING OTC MEDICATIONS PRILOSEC,NASICORT, AND ZIRTEC. WOULD LIKE TO DISCUSS RX FOR SEASONAL ALLERGIES AND ACID REFLUX( UNDIAGNOSED) Reason for Referral Specialty Diagnoses / Procedures Referred By Paul t Referred To Contact Neurology Diagnoses Bilateral carpal tunnel syndrome Barbara Cotnreras MD [address] [place] [phone] Adam Moon MD [address] [place] [address] Referral ID Status Reason Start Date Expiration Date V isits Requested Visits Authorized [id number] Authorized 03/06/2022 03/06/2023 1 1 Specialty Diagnoses / Procedures Referred By Contac t Referred To Contact Orthopaedic Surgery / Orthopedic Surgery Diagnoses Chronic right shoulder pain Procedures Joint Injection Large/Arthrocentesis: R subacromial bursa Nataliia Gomez, [employer] [address] [place] [address] Referral ID Status Reason Start Date Expiration Date V isits Requested Visits Authorized [id number] Authorized 11/17/2022 05/16/2023 1 1 Specialty Diagnoses / Procedures Referred By Contac t Referred To Contact Primary Care Diagnoses Chronic right shoulder pain Procedures Follow Up In Primary Care - Established Nataliia Gomez, [employer] [address] [place] [address] Referral ID Status Reason Start Date Expiration Date V isits Requested Visits Authorized [id number] Authorized 11/17/2022 05/16/2023 1 1 Specialty Diagnoses / Procedures Referred By Contac t Referred To Contact Radiology Diagnoses Chronic pain of both shoulders Procedures MR shoulder right wo IV contrast Pola Galvan MD [address] [place] [address] Referral ID Status Reason Start Date Expiration Date Visits Requested Visits Authorized [id number] Pending Review Perform Procedure 06/30/2023 06/29/2024 1 1 Specialty Diagnoses / Procedures Referred By Contac t Referred To Contact Physical Therapy Diagnoses Chronic pain of both shoulders Pola Galvan MD [address] [place] [address] Referral ID Status Reason Start Date Expiration Date Visits Requested Visits Authorized [id number] Pending Review Specialty Services Required 06/30/2023 06/29/2024 1 1 Specialty Diagnoses / Procedures Referred By Contac t Referred To Contact Radiology Diagnoses Chronic pain of both shoulders Procedures XR shoulder 2+ views bilateral Pola Galvan MD [address] [place] [address] Referral ID Status Reason Start Date Expiration Date Visits Requested Visits Authorized [id number] Authorized Perform Procedure 06/29/2023 06/28/2024 1 1 Additional Source Comments (unrecognized sect ion and content) No Status Records FoundNo Status Records FoundNo Status Records FoundNo Status Records FoundNo Status Records FoundNo Status Records FoundNo Status Records FoundNo Status Records FoundNo Status Records FoundNo Status Records FoundNo Status Records Found INFORMATION SOURCE (unrecogn ized section and content) DATE CREATED AUTHOR 10/13/2017 [facility] DATE CREATED AUTHOR AUTHOR'S ORGANIZ ATION 10/14/2017 [facility] DATE CREATED AUTHOR AUTHOR'S ORGANIZ ATION 10/20/2021 [facility] DATE CREATED AUTHOR AUTHOR'S ORGANIZ ATION 03/07/2022 [employer] DATE CREATED AUTHOR AUTHOR'S ORGANIZ ATION 03/07/2022 [facility] [place] DATE CREATED AUTHOR AUTHOR'S ORGANIZ ATION 10/24/2023 [facility] DATE CREATED AUTHOR AUTHOR'S ORGANIZ ATION 10/25/2023 [facility] DATE CREATED AUTHOR AUTHOR'S ORGANIZ ATION 11/28/2023 [facility] DATE CREATED AUTHOR AUTHOR'S ORGANIZ ATION 11/29/2023 [facility] DATE CREATED AUTHOR AUTHOR'S ORGANIZ ATION 12/21/2023 [facility] DATE CREATED AUTHOR AUTHOR'S ORGANIZ ATION 01/23/2024 [facility] Reason for Visit (unrecogniz ed section and content) Reason Comments Pain Specialty Diagnoses / Procedures Referred By Paul rosales Referred To Contact Neurology Diagnoses Bilateral carpal tunnel syndrome Barbara Contreras MD [address] [place] [phone] Adam Moon MD [address] [place] [address] Referral ID Status Reason Start Date Expiration Date Visits Re quested Visits Authorized [id number] Closed 03/06/2022 03/06/2023 1 1 Reason Comments Shoulder Pain RIGHT SHOULDER , REQ UESTS INJECTION Reason Comments Annual Exam Reason Comments Pain Limited ROM Pain Worse than left curr ently Specialty Diagnoses / Procedures Referred By Contac t Referred To Contact Orthopaedic Surgery / Orthopedic Surgery Diagnoses Chronic pain of both shoulders Barbara Contreras MD [address] [place] [address] Pola Galvan MD [address] [facility] [address] [place] [address] Referral ID Status Reason Start Date Expiration Date Visits Requested Visits Authorized [id number] Authorized Specialty Services Required 05/26/2023 05/25/2024 1 1 Specialty Diagnoses / Procedures Referred By Contac t Referred To Contact Radiology Diagnoses Chronic pain of both shoulders Procedures XR shoulder 2+ views bilateral Pola Galvan MD [address] [facility] [address] [place] [address] Referral ID Status Reason Start Date Expiration Date Visits Requested Visits Authorized [id number] Authorized Perform Procedure 06/29/2023 06/28/2024 1 1 Specialty Diagnoses / Procedures Referred By Contac t Referred To Contact Radiology Diagnoses Chronic pain of both shoulders Procedures MR shoulder right wo IV contrast Pola Galvan MD [address] [facility] [address] [place] [address] Referral ID Status Reason Start Date Expiration Date Visits Requested Visits Authorized [id number] Pending Review Perform Procedure 06/30/2023 06/29/2024 1 1 Reason Comments Follow-up Acute diverticulitis Care Teams (unrecognized sec tion and content) [employer] Worker Relationship Specialty Start Date End Date Barbara Contreras MD [address] [place] [address] PCP - General Family Medicine 03/12/17 [employer] Worker Relationship Specialty Start Date End Date Barbara Contreras MD [address] [place] [address] PCP - General Family Medicine 03/12/17 [employer] Worker Relationship Specialty Start Date End Date Barbara Contreras MD [address] [place] [address] PCP - General Family Medicine 03/12/17 [employer] Worker Relationship Specialty Start Date End Date Barbara Contreras MD [address] [place] [address] PCP - General Family Medicine 03/12/17 [employer] Worker Relationship Specialty Start Date End Date Barbara Contreras MD [address] [place], [place] [id number] PCP - General 10/18/21 Barbara Contreras MD [address] [place] [address] PCP - [place] [facility] PCP 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 Relationship Specialty Start Date End Date Barbara Contreras MD [address] [place] [address] PCP - General 10/18/21 Barbara Contreras MD [address] [place] [address] PCP - [place] [facility] PCP 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 Relationship Specialty Start Date End Date Barbara Contreras MD [address] [place] [address] PCP - General 10/18/21 Barbara Contreras MD [address] [place] [address] PCP - [place] [facility] PCP 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 Relationship Specialty Start Date End Date Barbara Contreras MD [address] [place] [address] PCP - General 10/18/21 Barbara Contreras MD [address] [place] [address] PCP - [place] [facility] PCP 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 Relationship Specialty Start Date End Date Barbara Contreras MD [address] [place] [address] PCP - General 10/18/21 Barbara Contreras MD [address] [place] [address] PCP - [place] [facility] PCP 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 Relationship Specialty Start Date End Date Barbara Contreras MD [address] [place] [address] PCP - General 10/18/21 Barbara Contreras MD [address] [place] [address] PCP - [place] [facility] PCP 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 Relationship Specialty Start Date End Date Barbara Contreras MD [address] [place] [address] PCP - General 10/18/21 Barbara Contreras MD [address] [place] [address] PCP - [place] [facility] PCP 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 Relationship Specialty Start Date End Date Barbara Contreras MD [address] [place] [address] PCP - General 10/18/21 Barbara Contreras MD [address] [place] [address] PCP - [place] [facility] PCP 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 This clinical summary was aggregated from multiple sources. Caution should be exercised in using it in the provision of clinical care. This summary normalizes information from multiple sources, and as a consequence, information in this document may materially change the coding, format and clinical context of patient data. In addition, data may be omitted in some cases. CLINICAL DECISIONS SHOULD BE BASED ON THE PRIMARY CLINICAL RECORDS. [facility] [employer] [facility]. provides no warranty or guarantee of the accuracy or completeness of information in this document.
--- NOTE | 2024-02-19 08:04 | PCM.PRE.AN2 ---
ASA Classification* ASA Classification ASA Classification: 2 Assessment & Plan Anesthesia* Anesthesia Assessment Anesthesia Assessment: Discussed sedation and/or anesthesia options, risks, benefits, and alternatives with patient/parents/legal guardian/POA. Questions invited. The patient/parents/legal guardian/POA seems to understand and agrees to proceed with anesthesia plan. Reviewed the physical assessment, medical history, allergy history and patient home medications list prior to surgery/procedure/anesthetic and documented any changes. Performed airway and anesthesia risk assessments. Anesthesia Type Anesthesia Type: MAC Anesthesia Focused Assessment* Temperature: 97.0 F Pulse Rate: 61 Blood Pressure: 128/73 Respiratory Rate: 16 Pulse Ox: 97 Airway Assessment Mouth opens: >3 cm Mallampati Score: II Focused Labs Anesthesia Preop lab: CBC WBC 9.4 K/mm3 (4.4-11.0) 01/07/24 06:08 RBC 4.93 M/mm3 (4.6-6.2) 01/07/24 06:08 Hgb 15.1 g/dL (13.0-16.5) 01/07/24 06:08 Hct 44.9 % (40-54) 01/07/24 06:08 Plt Count 299 K/mm3 (150-450) 01/07/24 06:08 CHEMISTRY Potassium 3.7 mmol/L (3.5-5.1) 01/07/24 06:08 Sodium 138 mmol/L (136-145) 01/07/24 06:08 BUN 6 mg/dL (7-18) L 01/07/24 06:08 Creatinine 0.79 mg/dL (0.70-1.30) 01/07/24 06:08 Glucose 99 mg/dL (74-106) 01/07/24 06:08 COAG Pre-Assessment Diagnosis/Proposed Procedure Planned Operative Procedure(s): COLONOSCOPY Anesthesia History 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 When Was Last Pacemaker Check QUESTION #4 FULL TEXT: You/Your Family Experience fever (hyperthermia) with Anesthesia Last Oral Intake Last Oral intake: Last Oral Intake NPO since 18:00 02/19/24 07:51 Meds taken in AM with sips of No 02/19/24 07:51 water? Meds patient instructed to take am of surgery PONV PONV - blacksmith apprentice: PONV - blacksmith apprentice Female No 02/18/24 08:19 HX of Motion Sickness No 02/18/24 08:19 HX of N/V After Surgery No 02/18/24 08:19 Non-Smoker No 02/18/24 08:19 Duration of Surgery greater No 02/18/24 08:19 than 60 minutes Number of Risk Factors PONV Score Height & Weight Height & Weight: Anesthesia: Height & Weight Height 5 ft 11 in 02/19/24 07:51 Weight: 103 kg 02/19/24 07:51 Body Mass Index (BMI) 31.6 02/19/24 07:51 Respiratory Assessment Respiratory Assessment - blacksmith apprentice: Respiratory Tract Infection Hx - blacksmith apprentice Hx Respiratory Tract Infection No 02/18/24 08:19 STOP Sleep Apnea STOP Sleep Apnea - blacksmith apprentice: STOP Sleep Apnea - blacksmith apprentice Hx Hypertension No 02/18/24 08:19 Hx Sleep Apnea No 02/18/24 08:19 CPAP BIPAP Do you snore loudly (louder No 02/18/24 08:19 than talking or can be heard Do you often feel tired/ No 02/18/24 08:19 fatigued/ sleepy during daytime? Has anyone observed you stop No 02/18/24 08:19 breathing during sleep? STOP Results Negative 02/18/24 08:19 QUESTION #5 FULL TEXT : Do you snore loudly (louder than talking or can be heard through closed doors)? 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 Specify any problems Hx of Preganancy in last 3 N/A 02/18/24 08:19 Months Nurse Filling Out Transfusion [email or web address] 02/18/24 08:19 & Questions: Date: 02/18/24 02/18/24 08:19 Time: 0802/18/24 08:19 Patient unable to answer at this time (ie. confused, unrespo /Reproduction History /Reproductive History - blacksmith apprentice: /Reproductive Hx- blacksmith apprentice Hx Now Gestational Age (in weeks): EDC: Hx Hx Para Hx Section SAB PFSH Medical History Wears contact lenses Marijuana use Arthritis Migraine headache Back pain Heartburn History of diverticulitis Seasonal allergies Asthma Home Medications ?Medication ?Instructions ?Recorded ?Last Taken ?Type albuterol sulfate 90 mcg/actuation 2 inh inhalation Q8H PRN shortness 01/03/24 Unknown History aerosol inhaler of breath or wheezing montelukast 10 mg tablet 10 mg PO DAILY 01/03/24 Unknown History omeprazole 20 mg capsule,delayed 20 mg PO DAILY 01/03/24 Unknown History release ashwagandha extract 120 mg capsule 240 mg PO DAILY 02/18/24 Unknown History cetirizine 10 mg capsule (All Day 10 mg PO DAILY 02/18/24 Unknown History Allergy (cetirizine)) [id number] 200 mcg-lycop 1 tab PO DAILY 02/18/24 Unknown History 175 mcg-lutei 250 mcg-herb 178 tablet (Farhat Multivitamin For Men) testosterone SUPPLEMENT 3 cap PO DAILY 02/18/24 Unknown History Allergy/AdvReac Type Severity Reaction Status Date / Time amoxicillin (From Augmentin) Allergy Intermediate Hives Verified 02/18/24 08:15 clavulanic acid (From Allergy Intermediate Hives Verified 02/18/24 08:15 Augmentin) Surgical History H/O inguinal hernia repair Social History Smoking Status: Current some day smoker tobacco type: e-cigarettes alcohol intake: current alcohol intake frequency: holidays/special occasions only substance use type: does not use Review of Systems (Anesthesia) ROS Narrative System reviewed and no additional complaints, except as documented.
--- NOTE | 2024-02-19 08:29 | HP.PCM_ITS ---
History and Physical Date of Admission: 02/19/24 Intake Vital Signs 01/05/2413:25 01/18/2415:23 Height 5 ft 11 in 5 ft 11 in Weight: 234 lb BMI 32.6 BP 127/77 H Blood Pressure Location Rt brachial Position Sitting Respiration 18 Pulse 74 Pulse Source Monitor Temp 97.5 F L Temp Source Temporal Pulse Oximetry (%) 97 Oxygen Delivery Method room air Intake Visit Reasons: [facility] FU Chief Complaint: [facility] FU DIVERTICULITIS Is patient in pain?: No Allergies amoxicillin (From Augmentin) Allergy (Intermediate, Verified 01/19/24 15:24) Hivesclavulanic acid (From Augmentin) Allergy (Intermediate, Verified 01/19/24 15:24) Hives [facility] Social History (Updated 01/19/24 @ 15:23 by Stephanie Childers LPN) Smoking Status: Former smoker alcohol intake: current alcohol intake frequency: holidays/special occasions only substance use type: does not use HPI HPI HPI: Patient is a 38-year-old male who has been feeling well since leaving the hospital. He was admitted with diverticulitis with small abscess. This is recurrent diverticulitis and he has had 3 bouts in the last 2 months. ROS General General: No weight change, appetite, fatigue, colon cancer, breast cancer or weakness HEENT HEENT: No difficulty swallowing, eye injury, eye surgery, swollen glands or hoarseness Endo Endocrine: No thyroid disease, diabetes mellitus, thyroid cancer, Hair loss, heat intolerance or cold intolerance Skin Skin: No rash or changing moles Musc Musculoskeletal: No back problems, arthritis, rheumatoid arthritis, gout or joint pain Cardio Cardiovascular: No murmur, pacemaker, heart disease, atrial fibrillation, high blood pressure, heart attack, heart stent, palpitations, shortness of breat with exertion or chest pain Psych Psychiatric: No depression, anxiety or hearing voices Resp Respiratory: No shortness of breath, No sleep apnea, No cough, No COPD, No asthma, No emphysema and No wheezing Gastro Gastrointestinal: Yes abdominal pain, No nausea or vomiting, No diarrhea, No constipation, No blood in stool, Yes acid reflux, No hemorrhoids, No ulcers, No gallbladder problem and No black,tarry stools Neuro Neurologic: No numbness, No tingling and No weakness Exam Const General: cooperative Orientation: alert and oriented x3 HENMT Head: normal to inspection Neck Neck: normal visual inspection and full ROM Chest Chest palpation & inspection: normal inspection of the chest Resp Effort & Inspection: normal respiratory effort Auscultation: clear to auscultation bilaterally Cardio Rate: regular rate Rhythm: regular rhythm GI Inspection: non-distended Palpation: soft and nontender Skin General: no rashes or lesions noted Neuro General: patient alert and patient oriented x3 Extrem General: full ROM Psych Appearance: grossly normal Mental Status: mental status grossly normal Assessment and Plan Assessment and Plan (1) Intestinal diverticular abscess: Status: Acute (2) Diverticulitis: Status: Acute Orders: Orders Colonoscopy Today Medications: Discontinued cefdinir Discontinued Reason: Order Completed 300 mg PO BID 10 days 20 caps 0RF metronidazole Discontinued Reason: Order Completed 500 mg PO TID 10 days 30 tabs 0RF Plan Patient had diverticulitis with abscess. The patient is not having any pain currently. He would like the area of sigmoid removed as he does not want to have diverticulitis again. Given the fact that this is his second bout in a month and he had a complicated diverticulitis with abscess I do not disagree. I discussed performing a colonoscopy first to evaluate the remainder of the colon and to check for malignancy. Patient is agreeable. I will also schedule him for sigmoid colectomy a few weeks after his colonoscopy. I will see him back after his colonoscopy to discuss that but I would like to get him on the OR schedule. I explained endoscopy in detail to the patient. I explained the risks including but not limited to stroke or heart attack with anesthesia, perforation of the GI tract, bleeding, infection. I explained that any of these could necessitate further emergency surgery. The patient understands and all questions were answered sufficiently. The patient wishes to proceed with procedure. Alejo Fuller MD Pager: [facility] [address] [place] [address], [address] [place] [address] Office: I have examined the patient and the H&P has been reviewed. There are no clinical changes since date of exam.
--- NOTE | 2024-02-19 08:30 | COLBX_PTH ---
PATHOLOGY RESULTS PATIENT: REID JAIN LOC: EN U#:[id number] AGE/SX: 38/M ROOM: RE02/19/[address]: Dr. Alejo Fuller MD : 1985 BED: DIS: 02/19/2024 SPEC #: [id number] RECD: 02/19/24 12:02 STATUS: TYE HANDRene #: [id number] SITA: 02/19/24 08:[address]: Alejo Fuller DEPT: SURGICAL PATHOLOGY RECD BY: Maylin De La Fuente ENTERED: 02/19/24 13:01 SP TYPE: COLON BX OTHR DR: Dr. Shukri Contreras MD Tissues: Rectum, NOS Procedures: Surgery Specimen Level IV HEADER OPERATION: Colonoscopy, polypectomy PRE-OP DIAGNOSIS: Intestinal diverticular abscess, diverticulitis TISSUE SUBMITTED: Rectum polyp MICROSCOPIC DIAGNOSIS Rectum polyp, polypectomy: Tubular adenoma. 02/22/2024 MICROSCOPIC DESCRIPTION Slides are reviewed. GROSS DESCRIPTION Received in fixative is one container labeled with the patient's name and designated Rectum polyp. The specimen consists of one irregular fragment of light kirby soft tissue that measures 0.5 x 0.3 x 0.1 cm. The specimen is totally submitted in one cassette. 02/19/2024 TC:1 CPT:31979
--- NOTE | 2024-02-19 09:07 | OP.COLON_ITS ---
Patient Name: Pérez Ulloa Procedure Date: 02/19/2024 8:43 AM Date of : 1985 Age: 38 Procedure: Colonoscopy Indications: Follow-up of diverticulitis Providers: Alejo Fuller MD Referring MD: Shukri Contreras Medicines: Propofol per Anesthesia Patient Profile: This is a 38 year old male. Refer to note in patient chart for documentation of history and physical. Last Colonoscopy: none. The patient's first colonoscopy is today. Complications: No immediate complications. Procedure: Pre-Anesthesia Assessment: - Prior to the procedure, a History and Physical was performed, and patient medications and allergies were reviewed. The patient's tolerance of previous anesthesia was also reviewed. The risks and benefits of the procedure and the sedation options and risks were discussed with the patient. All questions were answered, and informed consent was obtained. Prior Anticoagulants: The patient has taken no anticoagulant or antiplatelet agents. After reviewing the risks and benefits, the patient was deemed in satisfactory condition to undergo the procedure. After I obtained informed consent, the scope was passed under direct vision. Throughout the procedure, the patient's blood pressure, pulse, and oxygen saturations were monitored continuously. The colonoscope was introduced through the anus and advanced to the cecum, identified by appendiceal orifice and ileocecal valve. The colonoscopy was performed without difficulty. The patient tolerated the procedure well. The quality of the bowel preparation was good. The ileocecal valve, appendiceal orifice, and rectum were photographed. Scope In: 8:47:11 AM Scope Withdrawal Time 0 hours 7 minutes 37 seconds Scope Out: 8:59:08 AM Total Procedure Duration Time 0 hours 11 minutes 57 seconds Findings: A small polyp was found in the rectum. The polyp was removed with a hot snare. Resection and retrieval were complete. Multiple small-mouthed diverticula were found in the sigmoid colon. The exam was otherwise without abnormality on direct and retroflexion views. Impression: - One small polyp in the rectum, removed with a hot snare. Resected and retrieved. - Diverticulosis in the sigmoid colon. - The examination was otherwise normal on direct and retroflexion views. Recommendation: - Discharge patient to home. - Resume previous diet. - Continue present medications. - Await pathology results. - Repeat colonoscopy in 5 years for screening purposes. Procedure Code(s): --- Professional --- 20134, Colonoscopy, flexible; with removal of tumor(s), polyp(s), or other lesion(s) by snare technique Diagnosis Code(s): --- Professional --- D12.8, Benign neoplasm of rectum K57.32, Diverticulitis of large intestine without perforation or abscess without bleeding K57.30, Diverticulosis of large intestine without perforation or abscess without bleeding CPT copyright 2021 [employer] [place] [employer]. All rights reserved. The codes documented in this report are preliminary and upon medical billing coder review may be revised to meet current compliance requirements. Alejo Fuller MD 02/19/2024 9:06:56 AM This report has been signed electronically. Number of Addenda: 0 Note Initiated On: 02/19/2024 8:43 AM
--- NOTE | 2024-02-19 09:07 | OP.CCLET_ITS ---
02/19/2024 Shukri Contreras Re : Colonoscopy procedure for Pérez Contreras This procedure was performed on Monday, February 19, 2024. My impressions and recommendations are as follows: Impressions : - One small polyp in the rectum, removed with a hot snare. Resected and retrieved. - Diverticulosis in the sigmoid colon. - The examination was otherwise normal on direct and retroflexion views. Recommendations : - Discharge patient to home. - Resume previous diet. - Continue present medications. - Await pathology results. - Repeat colonoscopy in 5 years for screening purposes. My findings are described in the full procedure note, which is enclosed. If I can be of further assistance, please feel free to contact me at Doctor phone number(s): , Work: . Sincerely, Alejo Fuller MD 02/19/2024 9:06:56 AM This report has been signed electronically.
--- NOTE | 2024-02-19 09:10 | PCM.POST.ANE ---
Anesthesia: Postop Eval I Current Vital Signs Temperature: 97 F Pulse Rate: 69 Blood Pressure: 110/63 Respiratory Rate: 18 Pulse Ox: 98 Oxygen Delivery Method: Room Air Assessment Airway patent: Yes Spontaneous unlabored respirations: Yes Mental status: Awake and Calm nausea: No Vomiting: No Anesthesia Complication: No Fluid Hydration Crystalloid volume administer (ml): 60 Total IV fluid infused: 60 Progress Note Anesthesia document: Postop Eval 1 completed: Yes
--- NOTE | 2024-02-19 10:15 | PCM.POSTANE2 ---
Anesthesia Postop Eval I Sum Postop Eval Completion status Anesthesia document: Postop Eval 1 completed: Yes Anesthesia Postop Eval I Summary Anesthesia Postop Eval I Summary: Anesthesia Postop Eval I: Assessment Summary Airway patent Yes 02/19/24 09:11 [email or web address] Spontaneous unlabored Yes 02/19/24 09:11 [email or web address] respirations Mental status Awake,Calm 02/19/24 09:11 [email or web address] nausea No 02/19/24 09:11 [email or web address] Vomiting No 02/19/24 09:11 [email or web address] Anesthesia Postop Eval I: Fluid Summary Crystalloid volume administer 60 02/19/24 09:11 [email or web address] (ml) Colloids volume administered ( ml) Blood Product volume administered (ml) Total IV fluid infused 60 02/19/24 09:11 [email or web address] Anesthesia Postop Eval I: Summary Notes Anesthesia Complication No 02/19/24 09:11 [email or web address] Anesthesia Complication Comment: Post-operative progress note Anesthesia: Postop Eval II Evaluation Mental status: Awake Pain Level: 0 nausea: No Vomiting: No
== END 2024-02-19 09:47 | disposition home or self-care (01) ==
LOC: EN 07:38 → AC 07:41
PROVIDERS: PCP Family Medicine; Referring Provider Family Medicine; Visit Provider Surgery
PROC: 0DJD8ZZ Inspection of Lower Intestinal Tract, Via Natural or Artificial Opening Endoscopic (ICD-10-PCS; CPT 45378; principal; 2024-02-19 08:25)
DX: K57.32 Diverticulitis of large intestine without perforation or abscess without bleeding (principal); D12.8 Benign neoplasm of rectum; J45.909 Unspecified asthma, uncomplicated; Z87.891 Personal history of nicotine dependence; Z79.51 Long term (current) use of inhaled steroids; Z79.899 Other long term (current) drug therapy
CPT/HCPCS: 45385; 88305; A4216; J2405

== ENCOUNTER 2024-03-02 10:45 | Inpatient (IN) | payer BC, SELFPAY ==
[2024-03-02] VITALS (17 sets, daily range): BP systolic 127–190; BP diastolic 74–118; PULSE 60–88; RESP 16–18; TEMP 36.3–36.8; O2SAT 93–100; BMI 31.4
[2024-03-02] MEDS: Lactated Ringers 1,000 ML 40 ML IV ×2 (06:23→11:03)
[2024-03-02] MEDS: Gabapentin 600 MG Tablet PO (06:23)
[2024-03-02] MEDS: Acetaminophen 500 MG Tablet 1000 MG PO ×2 (06:23→14:42)
--- NOTE | 2024-03-02 06:40 | HP.PCM_ITS ---
History and Physical Date of Admission: 03/02/24 Intake Vital Signs 01/18/2415:23 02/18/2407:51 02/22/2410:11 Height 5 ft 11 in 5 ft 11 in 5 ft 11 in Weight: 228 lb BMI 31.8 BP 143/85 H Blood Pressure Location Rt brachial Position Sitting Respiration 17 Pulse 87 Pulse Source Monitor Pulse Oximetry (%) 99 Oxygen Delivery Method room air Intake Visit Reasons: DISCUSS COLECTOMY Chief Complaint: discuss colectomy Is patient in pain?: No Allergies amoxicillin (From Augmentin) Allergy (Intermediate, Verified 02/23/24 10:11) Hivesclavulanic acid (From Augmentin) Allergy (Intermediate, Verified 02/23/24 10:11) Hives Medications ?Medication ?Instructions ?Recorded ?Confirmed ?Type albuterol sulfate 90 mcg/actuation 2 inh inhalation Q8H PRN shortness 01/03/24 02/23/24 History aerosol inhaler of breath or wheezing montelukast 10 mg tablet 10 mg PO DAILY 01/03/24 02/23/24 History omeprazole 20 mg capsule,delayed 20 mg PO DAILY 01/03/24 02/23/24 History release ashwagandha extract 120 mg capsule 240 mg PO DAILY 02/18/24 02/23/24 History cetirizine 10 mg capsule (All Day 10 mg PO DAILY 02/18/24 02/23/24 History Allergy (cetirizine)) [id number] 200 mcg-lycop 1 tab PO DAILY 02/18/24 02/23/24 History 175 mcg-lutei 250 mcg-herb 178 tablet (Farhat Multivitamin For Men) testosterone SUPPLEMENT 3 cap PO DAILY 02/18/24 02/23/24 History metronidazole 500 mg tablet 500 mg PO .COMPLEX #6 tabs 02/23/24 02/23/24 Rx neomycin 500 mg tablet 500 mg PO .COMPLEX pre-op 02/23/24 02/23/24 Rx antibiotics #6 tabs PFSH Medical History Wears contact lenses Marijuana use Arthritis Migraine headache Back pain Heartburn History of diverticulitis Seasonal allergies Asthma Surgical History H/O inguinal hernia repair Social History Smoking Status: Current some day smoker tobacco type: e-cigarettes alcohol intake: current alcohol intake frequency: holidays/special occasions only substance use type: does not use HPI HPI HPI: 38-year-old male here following up after colonoscopy to discuss sigmoid colectomy for history of complicated diverticulitis Patient is currently having no pain. ROS General General: No weight change, appetite, fatigue, colon cancer, breast cancer or weakness HEENT HEENT: No difficulty swallowing, eye injury, eye surgery, swollen glands or hoarseness Endo Endocrine: No thyroid disease, diabetes mellitus, thyroid cancer, Hair loss, heat intolerance or cold intolerance Skin Skin: No rash or changing moles Musc Musculoskeletal: No back problems, arthritis, rheumatoid arthritis, gout or joint pain Cardio Cardiovascular: No murmur, pacemaker, heart disease, atrial fibrillation, high blood pressure, heart attack, heart stent, palpitations, shortness of breat with exertion or chest pain Psych Psychiatric: No depression, anxiety or hearing voices Resp Respiratory: No shortness of breath, No sleep apnea, No cough, No COPD, No asthma, No emphysema and No wheezing Gastro Gastrointestinal: Yes abdominal pain, No nausea or vomiting, No diarrhea, No constipation, No blood in stool, Yes acid reflux, No hemorrhoids, No ulcers, No gallbladder problem and No black,tarry stools Neuro Neurologic: No numbness, No tingling and No weakness Exam Const General: cooperative Orientation: alert and oriented x3 HENMT Head: normal to inspection Neck Neck: normal visual inspection and full ROM Chest Chest palpation & inspection: normal inspection of the chest Resp Effort & Inspection: normal respiratory effort Auscultation: clear to auscultation bilaterally Cardio Rate: regular rate Rhythm: regular rhythm GI Inspection: non-distended Palpation: soft and nontender Skin General: no rashes or lesions noted Neuro General: patient alert and patient oriented x3 Extrem General: full ROM Psych Appearance: grossly normal Mental Status: mental status grossly normal Assessment and Plan Assessment and Plan (1) Intestinal diverticular abscess: Status: Acute Plan: Patient has a history of diverticulitis with abscess. This healed conservatively and the patient underwent a colonoscopy recently. Colonoscopy was normal. He had 1 polyp removed which was hyperplastic. I discussed performing a laparoscopic sigmoid colectomy for him for his history of diverticulitis to prevent further flares. The patient is very interested in laparoscopic sigmoid colectomy and he would like this done. He is very afraid of having diverticulitis again.Given the fact that it was complicated I believe this is reasonable. I discussed Laparoscopic sigmoid colectomy. I discussed the procedure in detail as well as the risks including but not limited to bleeding, infection, injury other organs such as the bowel, bladder, ureter. I also discussed possibility of anastomotic leak. Patient understands and is willing to proceed. Alejo Fuller MD Pager: [facility] [address] [place] [address] [address] [place] [address] Office: I have examined the patient and the H&P has been reviewed. There are no clinical changes since date of exam.
[2024-03-02 06:48] LABS: Magnesium 2.1 mg/dL (1.6-2.6)
--- NOTE | 2024-03-02 06:51 | PCM.PRE.AN2 ---
ASA Classification* ASA Classification ASA Classification: 2 Assessment & Plan Anesthesia* Anesthesia Assessment Anesthesia Assessment: Discussed sedation and/or anesthesia options, risks, benefits, and alternatives with patient/parents/legal guardian/POA. Questions invited. The patient/parents/legal guardian/POA seems to understand and agrees to proceed with anesthesia plan. Reviewed the physical assessment, medical history, allergy history and patient home medications list prior to surgery/procedure/anesthetic and documented any changes. Performed airway and anesthesia risk assessments. Anesthesia Type Anesthesia Type: General Anesthesia Focused Assessment* Temperature: 98.2 F Pulse Rate: 62 Blood Pressure: 141/81 Respiratory Rate: 16 Pulse Ox: 98 Airway Assessment Mouth opens: >3 cm Mallampati Score: II Focused Labs Anesthesia Preop lab: CBC WBC 9.4 K/mm3 (4.4-11.0) 01/07/24 06:08 RBC 4.93 M/mm3 (4.6-6.2) 01/07/24 06:08 Hgb 15.1 g/dL (13.0-16.5) 01/07/24 06:08 Hct 44.9 % (40-54) 01/07/24 06:08 Plt Count 299 K/mm3 (150-450) 01/07/24 06:08 CHEMISTRY Potassium 3.7 mmol/L (3.5-5.1) 01/07/24 06:08 Sodium 138 mmol/L (136-145) 01/07/24 06:08 Magnesium 2.1 mg/dL (1.6-2.6) 03/02/24 06:25 BUN 6 mg/dL (7-18) L 01/07/24 06:08 Creatinine 0.79 mg/dL (0.70-1.30) 01/07/24 06:08 Glucose 99 mg/dL (74-106) 01/07/24 06:08 COAG Pre-Assessment Diagnosis/Proposed Procedure Planned Operative Procedure(s): LAP SIGMOID COLECTOMY Anesthesia History Anesthesia History - daytime babysitter: Anesthesia History - daytime babysitter Hx Hospitalization Yes: [facility]- DIVERTICULITIS 02/25/24 15:14 Any Problems With Anesthesia No: HARD TO PUT TO SLEEP 02/25/24 15:14 Cholinesterase deficiency No 02/25/24 15:14 You/Your Family Experience No 02/25/24 15:14 fever (hyperthermia) with Relationship Recent Exposure to Contagious No 03/02/24 06:12 Disease Does patient have nerve No 02/25/24 15:14 stimulator Patient instructed to have device shut off --Does patient have Pacemaker No 03/02/24 06:12 or ICD? When Was Last Pacemaker Check QUESTION #4 FULL TEXT: You/Your Family Experience fever (hyperthermia) with Anesthesia Last Oral Intake Last Oral intake: Last Oral Intake NPO since 04:00 03/02/24 06:12 Meds taken in AM with sips of Yes 03/02/24 06:12 water? Meds patient instructed to take am of surgery PONV PONV - daytime babysitter: PONV - daytime babysitter Female No 02/25/24 15:14 HX of Motion Sickness No 02/25/24 15:14 HX of N/V After Surgery No 02/25/24 15:14 Non-Smoker No 02/25/24 15:14 Duration of Surgery greater Yes 02/25/24 15:14 than 60 minutes Number of Risk Factors 1 02/25/24 15:14 PONV Score Low Risk 02/25/24 15:14 Height & Weight Height & Weight: Anesthesia: Height & Weight Height 5 ft 11 in 03/02/24 06:12 Weight: 102 kg 03/02/24 06:12 Body Mass Index (BMI) 31.4 03/02/24 06:12 Respiratory Assessment Respiratory Assessment - daytime babysitter: Respiratory Tract Infection Hx - daytime babysitter Hx Respiratory Tract Infection No 02/25/24 15:14 STOP Sleep Apnea STOP Sleep Apnea - daytime babysitter: STOP Sleep Apnea - daytime babysitter Hx Hypertension No 02/25/24 15:14 Hx Sleep Apnea No 02/25/24 15:14 CPAP BIPAP Do you snore loudly (louder No 02/25/24 15:14 than talking or can be heard Do you often feel tired/ No 02/25/24 15:14 fatigued/ sleepy during daytime? Has anyone observed you stop No 02/25/24 15:14 breathing during sleep? STOP Results Negative 02/25/24 15:14 QUESTION #5 FULL TEXT : Do you snore loudly (louder than talking or can be heard through closed doors)? Tobacco Use History Tobacco Use History - daytime babysitter: Tobacco Use History - daytime babysitter Tobacco Use Smoking Status Current some day smoker 02/25/24 15:14 Hx Tobacco Use No 02/25/24 15:14 Years Smoking Packs Smoked per Day Smoking Cessation Date was within the last 15 years Hx Smoking Cessation Date Hx Smoking Cessation No 02/25/24 15:14 Counseling Hematologic Medial History Hematologic Hx - daytime babysitter: Hematologic Medical Hx - hat and cap parts cutter hand Hx of Blood Transfusion No 02/25/24 15:14 Hx of Transfusion in last 3 No 02/25/24 15:14 Months Date of Last Transfusion (if within last 3 months) Ever experience any problems No 02/25/24 15:14 with transfusion(s)? Specify any problems Hx of Preganancy in last 3 N/A 02/25/24 15:14 Months Nurse Filling Out Transfusion DSCHRIBER 02/25/24 15:14 & Questions: Date: 02/25/24 02/25/24 15:14 Time: 15:15 02/25/24 15:14 Patient unable to answer at this time (ie. confused, unrespo /Reproduction History /Reproductive History - daytime babysitter: /Reproductive Hx- daytime babysitter Hx Now Gestational Age (in weeks): EDC: Hx Hx Para Hx Section SAB Active Medications Active Medications: Current Medications Generic Name Dose Route Start Last Admin Trade Name Freq PRN Reason Stop Dose Admin Acetaminophen 1,000 mg 03/02/24 07:30 03/02/24 06:23 Acetaminophen 500 Mg Tablet PO 03/02/24 07:31 1,000 mg PREOP ONE Administration Gabapentin 600 mg 03/02/24 07:30 03/02/24 06:23 Gabapentin 600 Mg Tablet PO 03/02/24 07:31 600 mg PREOP ONE Administration Cefotetan Disodium 2 gm/ 100 mls @ 200 mls/hr 03/02/24 07:30 Sodium Chloride IV 03/02/24 07:59 PREOP ONE Lactated Ringer's 1,000 mls @ 40 mls/hr 03/02/24 07:30 03/02/24 06:23 IV 40 mls/hr .Q25H GRAHAM Administration Insulin Human Lispro 0 unit 03/02/24 07:30 Insulin Lispro 100 Unit/Ml Insuln.Pen SC 03/02/24 13:30 Q4H PRN PRN BG >/= 180, SEE PROTOCOL Protocol PFSH Medical History Smoker Wears contact lenses Marijuana use Arthritis Migraine headache Back pain History of diverticulitis Seasonal allergies Asthma Home Medications ?Medication ?Instructions ?Recorded ?Last Taken ?Type albuterol sulfate 90 mcg/actuation 2 inh inhalation Q8H PRN shortness 01/03/24 Unknown History aerosol inhaler of breath or wheezing montelukast 10 mg tablet 10 mg PO DAILY ASTHMA 01/03/24 Unknown History omeprazole 20 mg capsule,delayed 20 mg PO DAILY GERD 01/03/24 03/02/24 History release ashwagandha extract 120 mg capsule 240 mg PO DAILY SUPPLEMENT 02/18/24 Unknown History cetirizine 10 mg capsule (All Day 10 mg PO DAILY ALLERGIES 02/18/24 Unknown History Allergy (cetirizine)) [id number] 200 mcg-lycop 1 tab PO DAILY SUPPLEMENT 02/18/24 Unknown History 175 mcg-lutei 250 mcg-herb 178 tablet (Farhat Multivitamin For Men) testosterone SUPPLEMENT 3 cap PO DAILY SUPPLEMENT 02/18/24 Unknown History metronidazole 500 mg tablet 500 mg PO .COMPLEX PREP #6 tabs 02/23/24 Unknown Rx neomycin 500 mg tablet 500 mg PO .COMPLEX pre-op 02/23/24 Unknown Rx antibiotics #6 tabs NASOCORT 1 spry NASAL DAILY ALLERGIES 02/25/24 Unknown History Allergy/AdvReac Type Severity Reaction Status Date / Time amoxicillin (From Augmentin) Allergy Intermediate Hives Verified 02/25/24 15:06 clavulanic acid (From Allergy Intermediate Hives Verified 02/25/24 15:06 Augmentin) Surgical History Hx of colonoscopy H/O inguinal hernia repair Social History Smoking Status: Current some day smoker tobacco type: e-cigarettes alcohol intake: current alcohol intake frequency: holidays/special occasions only substance use type: does not use Review of Systems (Anesthesia) ROS Narrative System reviewed and no additional complaints, except as documented.
[2024-03-02 06:56] LABS: Bedside Glucose 89 mg/dL (74-106)
[2024-03-02] MEDS: Magnesium 1 GM over 15 mins IV (07:30)
--- NOTE | 2024-03-02 07:30 | COL_PTH ---
PATIENT: REID JAIN LOC: MS3 U#:[id number] AGE/SX: 38/M ROOM: [facility] [place] RE03/02/[address]: Dr. Alejo Fuller MD : 1985 BED: 1 DIS: 03/05/2024 SPEC #: [id number] RECD: 03/02/24 11:14 STATUS: TYE FOX #: [id number] SITA: 03/02/24 07:[address]: Alejo Fuller DEPT: SURGICAL PATHOLOGY RECD BY: Maylin De La Fuente ENTERED: 03/02/24 12:18 SP TYPE: COLON OTHR DR: Dr. Shukri Contreras MD Tissues: A - Colon, NOS B - Colon Donuts Procedures: Surgery Specimen Level III Surgery Specimen Level V HEADER OPERATION: Laparoscopic, sigmoid colectomy PRE-OP DIAGNOSIS: Intestinal diverticular abscess TISSUE SUBMITTED: A- Sigmoid colon, B- Sigmoid donuts MICROSCOPIC DIAGNOSIS A. Sigmoid colon, colectomy: Diverticulosis. One benign pericolonic lymph node. B. Sigmoid donuts: Colonic donuts x2, no pathologic diagnosis. 03/04/2024 MICROSCOPIC DESCRIPTION Slides are reviewed. GROSS DESCRIPTION A. Received in fixative is one container labeled with the patient's name and designated Sigmoid colon. The specimen consists of a segment of colon with attached pericolonic adipose tissue measuring 18.0cm in length. Both resection margins are stapled. Lumen contains a small amount of fecal material. A small raised possible polyp is noted measuring 0.2cm in greatest dimension. Sections reveal multiple diverticula. No obvious ruptured diverticula are noted. Section of pericolonic adipose tissue do not reveal any obviously enlarged lymph nodes. Fence Erector sections are submitted in six cassettes as follows: 1- resection margin, 2- small mucosal polyp, 3- 5- diverticula, 6- pericolonic adipose tissue. B. Received in fixative is one container labeled with the patient's name and designated Sigmoid donuts. The specimen consists of two donut pieces of bowel tissue measuring 2.0 x 1.5 x 1.5cm and 2.0 x 1.8 x 1.0cm. One of the donut shaped pieces shows multiple reza. The other donut shaped piece shows multiple sutures. Fence Erector sections are submitted in two cassettes: 1- colonic donut with suture, 2- donut with reza. 03/03/2024 TC:5 CPT:56847,[id number]
[2024-03-02] MEDS: Cefotetan 2 GM in 0.9% Normal Saline (100mL MB+) 100 ML IV (07:38)
[2024-03-02] MEDS: Bupivacaine 0.25% 30 ML Vial (08:18)
[2024-03-02] MEDS: BUPIVACAINE LIPOSOME/PF 20 ML VIAL OPERA.SITE (08:18)
--- NOTE | 2024-03-02 10:36 | PCM.POST.ANE ---
Anesthesia: Postop Eval I Current Vital Signs Temperature: 97.4 F Pulse Rate: 88 Blood Pressure: 190/118 Respiratory Rate: 18 Pulse Ox: 96 Oxygen Delivery Method: Nasal Cannula Oxygen Flow Rate (L/min): 4 Assessment Airway patent: Yes Spontaneous unlabored respirations: Yes Mental status: Awake and Calm nausea: No Vomiting: No Anesthesia Complication: No Fluid Hydration Crystalloid volume administer (ml): 900 Total IV fluid infused: 900 Progress Note Anesthesia document: Postop Eval 1 completed: Yes
--- NOTE | 2024-03-02 10:57 | PCM.POSTANE2 ---
Anesthesia Postop Eval I Sum Postop Eval Completion status Anesthesia document: Postop Eval 1 completed: Yes Anesthesia Postop Eval I Summary Anesthesia Postop Eval I Summary: Anesthesia Postop Eval I: Assessment Summary Airway patent Yes 03/02/24 10:41 Spontaneous unlabored Yes 03/02/24 10:41 respirations Mental status Awake,Calm 03/02/24 10:41 nausea No 03/02/24 10:41 Vomiting No 03/02/24 10:41 Anesthesia Postop Eval I: Fluid Summary Crystalloid volume administer 900 03/02/24 10:41 (ml) Colloids volume administered ( ml) Blood Product volume administered (ml) Total IV fluid infused 900 03/02/24 10:57 Anesthesia Postop Eval I: Summary Notes Anesthesia Complication No 03/02/24 10:41 Anesthesia Complication Comment: Post-operative progress note Anesthesia: Postop Eval II Evaluation Mental status: Awake and Calm Pain Level: 2 nausea: No Vomiting: No Progress Note Post-operative progress note: Improved blood pressures after control of his shivering. Complications Anesthesia Complication: No
--- NOTE | 2024-03-02 12:05 | OP.PCM_ITS ---
Operative Report (Standard) Operative Information Surgery/Procedure Performed: Laparoscopic sigmoid colectomy Surgeon: Alejo Fuller Date of Procedure: 03/02/24 Procedure Start Time: 08:14 Procedure Stop Time: 10:22 Pre-Operative Diagnosis: History of complicated diverticulitis Post-Operative Diagnosis: Same Select all DRAINS/GRAFTS/IMPLANTS that apply: None Type of Anesthesia: General/Regional Estimated Blood Loss: 10 Specimen collected: Yes Description of specimen(s) removed: Sigmoid colon Description of surgery: Patient was brought back to the operating room and general anesthesia was induced. Patient was placed in lithotomy position and a Winkler catheter was placed. Next the rectum was irrigated using a mixture of saline and Betadine. The abdomen was then prepped and draped in usual sterile fashion as well as the perineal region. A midline incision was made superior to the umbilicus and deepened to the fascia which was elevated and incised. 12 mm port was placed into the abdomen and the abdomen was insufflated 15 mmHg. Patient was placed in Trendelenburg position. A tap block was performed bilaterally under laparoscopic guidance. In the right lower quadrant 12 mm port was placed under direct visualization. A 5 mm port was placed in the right mid abdomen. The colon was identified and followed down to the pelvis. There was an old abscess cavity that was adherent from the pelvic sidewall on the right to the colon. This was bluntly taken down. Once the colon was fully mobilized on the right the lateral white line of Toldt on the left was taken down to mobilize the sigmoid colon. Enseal was used to take down the white line of Toldt and the lateral adhesions. The left ureter was identified and we made sure to avoid it. Next the mesentery was taken down in the mid sigmoid and then this was followed distally until the rectum was encountered. An [place] stapler was used to divide the sigmoid and rectum. The remaining sigmoid mesentery was taken down using Enseal. Next the staple line was grasped and then a Pfannenstiel incision was made in the lower midline. It was deepened to the fascia and the fascia was opened transversely. The muscle was split and the peritoneum was incised. Next the end of the sigmoid colon was delivered through the incision after wound protector was placed. The proximal sigmoid was identified where it transition from the descending colon. At this area the colon was divided using [place] stapler. The segment was sent for pathology. Next the staple line was removed sharply from the distal descending colon and then sizers were used to size a 29 EEA stapler. The anvil was placed into the distal descending colon and then a 0 Prolene pursestring suture was used to keep the anvil in the colon. Next this was returned to the abdomen and the wound protector was tied closed and then the abdomen was reinsufflated. Well-lubricated serial dilators were placed into the rectum and to the staple line. The stapler was then lubricated and placed into the rectum and to the staple line. The point was brought out through the staple line. Next the anvil was placed on the stapler and it was closed and fired. Stapler was untwisted and removed. Both donuts were intact. Next we performed a leak test and instilled saline into the pelvis and insufflated from the rectum using a rigid sigmoidoscope. There was no leak. The abdomen was suctioned dry. There still did appear to be some mucosal tissue anteriorly and so I placed three 3-0 silk sutures across this area of the staple line to buttress it. Next the 12 mm port was removed in the right lower quadrant and using Michael Biggs needle and 0 Vicryl suture was used to close the fascia. The 12 mm port was removed and in the same fashion the fascia was closed with a Michael Biggs needle and 0 Vicryl suture. The last 5 mm ports removed and the abdomen was allowed to desufflate from air. Next the peritoneum at the lower incision was closed using a running 3-0 Vicryl suture. The fascia was closed with a running #1 PDS suture. Subcutaneous tissue was irrigated and suctioned. 3-0 Vicryl sutures used to close the dermis. Next all of the incisions were closed with 4- 0 Monocryl suture and Steri-Strips and bandages were applied and patient was taken to PACU in stable condition with Winkler catheter in place. Surgical Findings: Inflamed colon with pelvic abscess Force Variation Equipment Tender assessment analyst: Yes Food Service Steward: Mary Mercer Tasks completed by presser first: Opening & closing and Retracting Complications Complications: No Admit VTE Documentation VTE Mechan Device Prophylaxis: SCD's
[2024-03-02] MEDS: Ketorolac 15 MG/ML Vial IV ×2 (14:43→22:57)
[2024-03-02] MEDS: 0.9% Saline Lock 10 ML Syringe IV ×2 (14:46→17:11)
[2024-03-02] MEDS: Morphine 2 MG/ML Syringe IV ×3 (17:10→23:24)
[2024-03-02] MEDS: Docusate Sodium 100 MG Capsule PO (20:10)
[2024-03-02] MEDS: Lactated Ringers 1,000 ML 80 ML IV (22:51)
[2024-03-03 02:16] VITALS: BP 156/82; PULSE 70; RESP 18; TEMP 36.9; O2SAT 97
[2024-03-03] MEDS: Morphine 2 MG/ML Syringe IV ×3 (02:26→10:43)
[2024-03-03] MEDS: Ketorolac 15 MG/ML Vial IV ×2 (04:36→16:04)
[2024-03-03 07:25] LABS: Hematocrit 39.7 % (40-54); Hemoglobin 13.3 g/dL (13.0-16.5); Mean Corp Hgb Conc 33.5 g/dL (32-36); Mean Corpuscular Hgb 31.1 pg (27.0-32.0); Mean Corpuscular Volume 92.8 fL (80-94); Mean Platelet Vol. 10.1 fl (6.2-12.0); Platelet Count 249 K/mm3 (150-450); RBC Distribution Width CV 13.7 % (11.6-14.6); RBC Distribution Width SD 47.2 fl (35.1-43.9); Red Blood Count 4.28 M/mm3 (4.6-6.2); White Blood Count 10.4 K/mm3 (4.4-11.0)
--- NOTE | 2024-03-03 07:34 | PCM.PN.SRG ---
Subjective Subjective Patient evaluated resting comfortably in bed. He notes having a moderate amount of pain. He denies any nausea, vomiting, fever. He is urinating well. Small amount of flatus. Negative BM. Objective Data Objective Data Vital Signs: Vital Signs Temp Pulse Resp BP Pulse Ox O2 Del Method O2 Flow Rate 98.4 F 70 18 156/82 H 97 Room Air 2 03/03/24 02:16 03/03/24 02:16 03/03/24 02:16 03/03/24 02:16 03/03/24 02:16 03/03/24 02:16 03/02/24 14:36 Oxygen Flow Rate (L/min) 2 Oxygen Delivery Method Room Air Weight: 224 lb 13.944 oz Body Mass Index (BMI) 31.4 Intake & Output: Intake and Output for Last 24 Hours 03/01/24 03/02/24 03/03/24 23:59 23:59 23:59 Intake Total 2278.66 / 2278.66 Output Total 1715 / 1715 Balance 563.66 / 563.66 Lab / Micro Data 03/03/24 06:23 03/03/24 06:23 Labs: Laboratory Results - last 24 hr 03/03/24 06:23: WBC 10.4, RBC 4.28 L, Hgb 13.3, Hct 39.7 L, MCV 92.8, MCH 31.1, MCHC 33.5, RDW Std Deviation 47.2 H, RDW Coeff of Francis 13.7, Plt Count 249, MPV 10.1 Physical Exam GI GI Narrative: Abdomen- generalized tenderness. Incisions minimal drainage noted. No active oozing noted. Assessment & Plan Assessment/Plan (1) Intestinal diverticular abscess: PLAN: I am following this patient in conjunction with Dr. Fuller. He has independently evaluates this patient. Labs reviewed Increase diet to clear liquids Recommend transition to oral pain medication Encourage sitting in the chair and ambulation Kpad for comfort We will continue to monitor this patient Charges/Coding Visit Charges Inpatient E&M: 99059 Subs Hosp L1 (Post-op; no charge)
[2024-03-03 07:59] LABS: Anion Gap 5 (5-15); BUN 9 mg/dL (7-18); BUN/Creat Ratio 9.8 RATIO (10-20); Calcium,Total 8.7 mg/dL (8.5-10.1); Chloride 110 mmol/L (98-107); Creatinine, Serum 0.92 mg/dL (0.70-1.30); EST Glomerular Filtration Rate 98 mL/min (>60); Est Glom Filt Rate - Afr Amer 119 mL/min (>60); Estimated Creatinine Clearance 133.69 ml/min; Glucose 95 mg/dL (74-106); Potassium 3.9 mmol/L (3.5-5.1); Sodium Level 140 mmol/L (136-145)
[2024-03-03] MEDS: oxyCODONE 5 MG Tablet PO ×4 (08:36→23:59)
[2024-03-03] MEDS: Ondansetron ODT 4 MG Tablet PO ×3 (08:37→21:04)
[2024-03-03] MEDS: Docusate Sodium 100 MG Capsule PO ×2 (08:37→20:21)
[2024-03-03] MEDS: Pantoprazole Sodium 20 MG Tablet PO (08:37)
[2024-03-03] MEDS: Montelukast 10 MG Tablet PO (08:37)
[2024-03-03 08:45] VITALS: BP 135/89; PULSE 63; RESP 18; TEMP 36.8; O2SAT 97
--- NOTE | 2024-03-03 08:46 | NURSING ---
pt with several complaints about clear liquids that are available here. i've had them before and I know how awful they are. pt able to pick a couple things that he said he is willing to try those being sprite, coke and coffee. Coke and coffee provided. informed pt that if he doesn't like choices of jello offered, he can ask his girlfriend to bring jello in from home that he would prefer. pt verbalizes understanding. will continue to provide reinforcement on diet/post op POC as ordered.
[2024-03-03] MEDS: 0.9% Saline Lock 10 ML Syringe IV ×5 (10:43→16:05)
--- NOTE | 2024-03-03 11:17 | NURSING ---
in to room, pt facial grimacing, holding abdomen. c/o of being hot and that is why i threw them things off, and i don't think that heating pad is working anyways. multiple complaints about kpad/and scds (not using either of those upon entering room)room disheveled, scd sleeves laying on the floor, one by bathroom door other by window. heating pad checked and it is working, reinforced use/application/temperature, also reinforced splinting. Active listening and reflection provided to pt. pt states that he feels turning room temperature down and closing door may help. Said nurse also offered to locate a fan if pt feels that may be helfpul too, pt states he would to try a fan. upon leaving room, door closed, thermostat turned down and will look for fan. IV pain medication given as well.
[2024-03-03] MEDS: LORazepam 2 MG/ML Syringe 1 MG IV (12:03)
[2024-03-03] MEDS: Nicotine Polacrilex 2 MG GUM PO ×2 (12:47→17:40)
--- NOTE | 2024-03-03 12:58 | CASEMGMT ---
MARIAH SMITH Assessment: Face to Face with pt for initial transition planning/care coordination assessment. MARIAH SMITH introduced self and role at [facility], pt voices understanding and consents to assessment. Pt is A&O x4 and answers all questions appropriately at this time. Pt lying in bed in no distress. Care providers, pharmacy, and demographics verified/updated. Admitting Dx: lap sigmoid colectomy Strata Score: 1 PCP:Diane Specialists:Alina, DIMA Ceron Pharmacy: [facility] Retail Insurance: [employer] Prescription Benefit: yes LNOK: Reba Ulloa, mother; Melanie Pinedo, sig other Living Arrangements: Pt lives in a camper on his mother's property. Pt plans to dc to his sig other's home which is a single story home with 3 steps to enter post dc. Pt reports he is I in ADLs prior to surgery. Pt denies concerns at home. Transportation: Pt drives self and denies concerns with transportation. DME:Denies HHC/SNF: Denies hx of Pt states no concerns with going home at time of dc. Pt states no further concerns/needs. CM to follow. Advised pt to ask CM if any further question/concerns/needs arise, voices understanding. Pt Goal: Home to sig other's home Plan: Home to sig other's home Marisel LEMUS CM
[2024-03-03] MEDS: HYDROmorphone 1 MG/ML Syringe IV ×2 (13:56→20:19)
[2024-03-03 14:44] VITALS: BP 147/88; PULSE 77; RESP 16; TEMP 36.9; O2SAT 93
[2024-03-03 20:16] VITALS: BP 140/91; PULSE 56; RESP 18; TEMP 36.8; O2SAT 98
[2024-03-04] MEDS: proCHLORPERazine 10 MG/2 ML Vial IV (00:19)
[2024-03-04] MEDS: HYDROmorphone 1 MG/ML Syringe IV (04:08)
[2024-03-04 04:10] VITALS: BP 150/87; PULSE 72; RESP 18; TEMP 37.1; O2SAT 96
--- NOTE | 2024-03-04 07:30 | PN.SURG_ITS ---
Subjective Subjective Patient reports that he was having a lot of pain and nausea yesterday but once he passed gas and had a bowel movement he felt much better. He is currently not nauseated or having severe pain. Objective Data Objective Data Vital Signs: Vital Signs Temp Pulse Resp BP Pulse Ox O2 Del Method O2 Flow Rate 98.7 F 72 18 150/87 H 96 Room Air 2 03/04/24 04:10 03/04/24 04:10 03/04/24 04:10 03/04/24 04:10 03/04/24 04:10 03/04/24 04:10 03/02/24 14:36 Oxygen Flow Rate (L/min) 2 Oxygen Delivery Method Room Air Weight: 224 lb 13.944 oz Body Mass Index (BMI) 31.4 Intake & Output: Intake and Output for Last 24 Hours 03/02/24 03/03/24 03/04/24 23:59 23:59 23:59 Intake Total 2278.66 / 2278.66 1480 / 1480 Output Total 1715 / 1715 500 / 500 Balance 563.66 / 563.66 980 / 980 Lab / Micro Data 03/03/24 06:23 03/03/24 06:23 Labs: Laboratory Results - last 24 hr 03/03/24 06:23: Sodium 140, Potassium 3.9, Chloride 110 H, Carbon Dioxide 25.0, Anion Gap 5, BUN 9, Creatinine 0.92, Estim Creat Clear Calc 133.69, Est GFR (MDRD) Af Amer 119, Est GFR (MDRD) Non-Af 98, BUN/Creatinine Ratio 9.8 L, Glucose 95, Calcium 8.7 Physical Exam Const oriented x3 and no apparent distress Resp normal respiratory effort GI soft to palpation Palpation: tender Assessment & Plan Assessment/Plan (1) Intestinal diverticular abscess: PLAN: Patient is postoperative day 2 from sigmoid colectomy. Labs are pending. The patient is feeling better after having a bowel movement and passing some flatus. He is tolerating clear liquids. I will advance him to full liquids and if he tolerates that possibly advance to soft diet. I encouraged ambulation and incentive spirometer. The patient is still taking oral pain medication. Hopeful for DC in the next day or 2. Alejo Fuller MD Pager: [facility] [address] [place] [address] [address] [place] [address] Office:
[2024-03-04 08:02] LABS: Absolute Neutrophil Count 5.3 X10^3/uL (2.0-7.7); Basophil# 0.05 X10^3/uL; Basophil% 0.6 % (0-1); Eosinophil# 0.16 X10^3/uL; Hematocrit 40.9 % (40-54); Hemoglobin 13.4 g/dL (13.0-16.5); Lymphocyte % 21.1 % (19-41); Mean Corp Hgb Conc 32.8 g/dL (32-36); Mean Corpuscular Hgb 30.3 pg (27.0-32.0); Mean Corpuscular Volume 92.5 fL (80-94); Mean Platelet Vol. 9.9 fl (6.2-12.0); Monocyte# 0.79 X10^3/uL; Monocyte% 9.8 % (0-10); NRBC Flagged by Analyzer 0 % (0-5); Neutrophil # 5.33 X10^3/uL (2.7-7.7); Neutrophil % 66.3 % (47-70); Platelet Count 272 K/mm3 (150-450); RBC Distribution Width CV 13.2 % (11.6-14.6); RBC Distribution Width SD 44.6 fl (35.1-43.9); Red Blood Count 4.42 M/mm3 (4.6-6.2); White Blood Count 8.1 K/mm3 (4.4-11.0)
[2024-03-04 08:14] VITALS: BP 146/99; PULSE 74; RESP 16; TEMP 36.6; O2SAT 98
[2024-03-04] MEDS: oxyCODONE 5 MG Tablet PO ×4 (08:24→22:23)
[2024-03-04] MEDS: Ketorolac 15 MG/ML Vial IV ×2 (08:24→18:31)
[2024-03-04] MEDS: 0.9% Saline Lock 10 ML Syringe IV ×2 (08:24→18:31)
[2024-03-04] MEDS: Pantoprazole Sodium 20 MG Tablet PO (08:25)
[2024-03-04] MEDS: Montelukast 10 MG Tablet PO (08:25)
[2024-03-04] MEDS: Docusate Sodium 100 MG Capsule PO ×2 (08:25→20:53)
[2024-03-04 08:30] VITALS: O2SAT 98
[2024-03-04 08:59] LABS: Anion Gap 6 (5-15); BUN 5 mg/dL (7-18); BUN/Creat Ratio 5.8 RATIO (10-20); Calcium,Total 9.1 mg/dL (8.5-10.1); Chloride 108 mmol/L (98-107); Creatinine, Serum 0.87 mg/dL (0.70-1.30); EST Glomerular Filtration Rate 105 mL/min (>60); Est Glom Filt Rate - Afr Amer 127 mL/min (>60); Estimated Creatinine Clearance 141.38 ml/min; Glucose 91 mg/dL (74-106); Potassium 4.4 mmol/L (3.5-5.1); Sodium Level 137 mmol/L (136-145)
[2024-03-04 17:00] VITALS: BP 149/95; PULSE 69; RESP 18; TEMP 36.7; O2SAT 99
[2024-03-04 20:00] VITALS: BP 143/83; PULSE 71; RESP 13; TEMP 36.8; O2SAT 98
[2024-03-04] MEDS: Acetaminophen 500 MG Tablet 1000 MG PO (22:23)
[2024-03-05 02:00] VITALS: BP 138/90; PULSE 63; RESP 15; TEMP 36.6; O2SAT 99
[2024-03-05] MEDS: oxyCODONE 5 MG Tablet PO ×3 (02:58→12:59)
[2024-03-05 07:41] VITALS: O2SAT 97
[2024-03-05] MEDS: Montelukast 10 MG Tablet PO (09:01)
[2024-03-05] MEDS: Pantoprazole Sodium 20 MG Tablet PO (09:01)
[2024-03-05] MEDS: Docusate Sodium 100 MG Capsule PO (09:01)
[2024-03-05 09:03] VITALS: BP 136/85; PULSE 67; RESP 18; TEMP 36.6; O2SAT 96
--- NOTE | 2024-03-05 10:33 | PCM.DC.SUM ---
Providers Date of Admission: 03/02/24 Date of Discharge: 03/05/24 Primary Care Physician: Dr. Shukri Contreras MD Reason For Visit: ERAS, Laparoscopic, Sigmoid Colectomy Diagnosis Discharge Diagnosis (1) Intestinal diverticular abscess: Status: Acute Code(s): K63.0 - Abscess of intestine Medications at Discharge Home Medications albuterol sulfate 90 mcg/actuation aerosol inhaler 2 inh inhalation Q8H PRN shortness of breath or wheezing 01/03/24 montelukast 10 mg tablet 10 mg PO DAILY ASTHMA 01/03/24 omeprazole 20 mg capsule,delayed release 20 mg PO DAILY GERD 01/03/24 ashwagandha extract 120 mg capsule 240 mg PO DAILY SUPPLEMENT 02/18/24 cetirizine 10 mg capsule (All Day Allergy (cetirizine)) 10 mg PO DAILY ALLERGIES 02/18/24 zfmoqfna-nen-wiecl 200 mcg-lycop 175 mcg-lutei 250 mcg-herb 178 tablet (Farhat Multivitamin For Men) 1 tab PO DAILY SUPPLEMENT 02/18/24 testosterone SUPPLEMENT 3 cap PO DAILY SUPPLEMENT 02/18/24 metronidazole 500 mg tablet 500 mg PO .COMPLEX PREP #6 tabs 02/23/24 neomycin 500 mg tablet 500 mg PO .COMPLEX pre-op antibiotics #6 tabs 02/23/24 NASOCORT 1 spry NASAL DAILY ALLERGIES 02/25/24 Hospital Course Operations colectomy Summary of Care Provided Hospital Course: The patient is a 38-year-old male with a history of recurrent sigmoid diverticulitis. He has been hospitalized several times. Patient underwent an elective sigmoid colectomy performed by Dr. Fuller during this admission. Patient progressed nicely following the surgery. He has regained bowel function promptly. Patient is currently passing gas and stools. He is also tolerating diet very well. Pain is well-controlled with current bowel regimen. Patient is hopeful for discharge later today Physical Exam Const alert and no apparent distress General Appearance: cooperative HEENT normocephalic Eyes PERRL GI GI Narrative: Abdomen is soft and nondistended. Minimal tenderness to palpation at incision sites. Dressings are all clean dry and intact. Weight / BMI Weight Weight: 224 lb 13.944 oz Body Mass Index (BMI) 31.4 ABG / Lab / Microbiology Data 03/04/24 07:00 03/04/24 07:00 D/C Instructions Discharge Diet: Light diet - advance as tolerated Lifting Restrictions: Keep lifting under 15 pounds for about 6 weeks Call your doctor if your incision/area has: Continuous Slow Oozing, Sudden Increased Bleeding, Increased Pain/ Swelling, Increased Redness, Foul Smelling Discharge and Swelling at the incision site Call your doctor if you observe: Fever of 101 or Higher Remove Dressing in: 5 days Cleanse incision/area with: Soap & Water Please Follow Up With: Alejo Fuller MD When: Next week as scheduled Meaningful Use Info Meaningful Use Meaningful Use Diagnoses (Choose all that apply): None applicable Ischemic Stroke Statin Dosing Therapy Reference: STATIN DOSE THERAPY REFERENCE: * Patients > 75 years receive moderate or high dose statin therapy. * Patients 75 years or YOUNGER should receive HIGH intensity statin dose unless contraindicated. You will be required to document reason for non-treatment if statin daily dose does not meet guidelines. HIGH DOSE STATIN THERAPY DAILY Atorvastatin > than or = to 40 mg Rosuvastatin > than or = to 20 mg Amlodipine + Atorvastatin > than or = to 2.5/40 mg Ezetimibe + Simvastatin 10/80 mg Simvastatin 80mg Discharge Plan Admission Admit Date/Time: 03/02/24 10:45 Attending Provider: Alejo Fuller Primary Care Provider: Shukri Contreras Discharge Orders/Prescriptions Prescriptions: No Action metronidazole 500 mg tablet 500 mg PO .COMPLEX Qty: 6 0RF Rx Instructions: 500 mg PO Take 2 (two) tablets at 1300, 1500, 2300 neomycin 500 mg tablet 500 mg PO .COMPLEX Qty: 6 0RF Rx Instructions: Take two (2) 500 mg tablets PO at 1300, 1500, 2300 omeprazole 20 mg capsule,delayed release(DR/EC) 20 mg PO DAILY montelukast 10 mg tablet 10 mg PO DAILY albuterol sulfate 90 mcg/actuation HFA aerosol inhaler 2 inh inhalation Q8H PRN (Reason: shortness of breath or wheezing) All Day Allergy (cetirizine) 10 mg capsule 10 mg PO DAILY ashwagandha extract 120 mg capsule 240 mg PO DAILY testosterone SUPPLEMENT capsule 3 cap PO DAILY Farhat Multivitamin For Men 200-175-250 mcg tablet 1 tab PO DAILY NASOCORT 1 spry NASAL DAILY Referrals / Follow Up: Shukri Contreras MD [Primary Care Provider] - Charges/Coding Visit Charges Inpatient E&M: 30759 Disch Hosp
== END 2024-03-05 14:16 | disposition home or self-care (01) | DRG 331 ==
PROVIDERS: Anesthesiology; Physician Assistant; Admitting Provider Surgery; PCP Family Medicine; Referring Provider Surgery; Visit Provider Surgery
PROC: 0DTN0ZZ Resection of Sigmoid Colon, Open Approach (ICD-10-PCS; CPT 44204; principal; 2024-03-02 07:05)
DX: K57.20 Diverticulitis of large intestine with perforation and abscess without bleeding (principal); F10.90 Alcohol use, unspecified, uncomplicated; F12.90 Cannabis use, unspecified, uncomplicated; F17.200 Nicotine dependence, unspecified, uncomplicated; Z86.0100 Personal history of colon polyps, unspecified
CPT/HCPCS: 36415; 80048; 82962; 83735; 85025; 85027; 88304; 88307; 94668; 94762; A4216; C1760; J2405; J3475